=== PATIENT | female | born 1945 | race Caucasian/White ===

== ENCOUNTER → 2023-11-07 14:07 | Outpatient (REF) | payer MEDICARE, BC, SELFPAY | LOC: HWRAD 14:07 | PROVIDERS: ATTENDING PHYSICIAN Internal Medicine Rheumatology; FAMILY PHYSICIAN Internal Medicine | DX: M81.0 Age-related osteoporosis without current pathological fracture (principal) | CPT/HCPCS: 77080 ==

== ENCOUNTER → 2023-11-14 11:05 | Outpatient (REF) | payer MEDICARE, BC, SELFPAY ==
[2023-11-14 11:51] LABS: % Basophils 0.9 % (0-2); % Eosinophils 1.8 % (0-6); % Immature Granulocytes 0.2 % (0-0.5); % Lymphocytes 21.2 % (20.5-51.1); % Monocytes 6.1 % (1.7-9.3); % Neutrophils 69.8 % (42.2-75.2); Absolute Basophils 0.1 10^3/uL (0-0.2); Absolute Eosinophils 0.2 10^3/uL (0-0.7); Absolute Lymphocytes 1.7 10^3/uL (1.2-3.4); Absolute Monocytes 0.5 10^3/uL (0.1-0.6); Absolute Neutrophils 5.7 10^3/uL (1.4-6.5); Hemoglobin 12.5 g/dL (12.0-16.0); Mean Corp Hgb Conc. 34.7 g/dL (33.0-37.0); Mean Corpuscular Hgb 34.2 pg (27.0-31.0); Mean Corpuscular Volume 98.4 fL (81.0-99.0); Mean Platelet Volume 9.6 fL (7.4-10.4); Nucleated Red Blood Cells % 0 %; Platelet Count 299 10^3/uL (130-400); Red Blood Cell Count 3.66 10^6/uL (4.20-5.40); White Blood Cell Count 8.2 10^3/uL (4.8-10.8)
[2023-11-14 12:18] LABS: ALT (SGPT) 13 U/L (0-35); AST (SGOT) 25 U/L (14-36); Albumin 4.6 g/dl (3.5-5.0); Alkaline Phosphatase 88 U/L (38-126); Blood Urea Nitrogen 23 mg/dl (7-17); Calcium 10.6 mg/dl (8.4-10.2); Carbon Dioxide 27 mmol/L (22-30); Chloride 104 mmol/L (98-107); Glucose 122 mg/dl (70-99); Potassium 5.3 mmol/L (3.5-5.1); Sodium 137 mmol/L (135-145); Total Bilirubin 0.5 mg/dl (0.2-1.3); Total Protein 7.2 g/dl (6.3-8.2); eGFR 46.62
== END ==
LOC: REG 11:05
PROVIDERS: ATTENDING PHYSICIAN Internal Medicine Rheumatology; FAMILY PHYSICIAN Internal Medicine
DX: M05.9 Rheumatoid arthritis with rheumatoid factor, unspecified (principal); Z51.81 Encounter for therapeutic drug level monitoring
CPT/HCPCS: 36415; 80053; 85025; 86140

== ENCOUNTER → 2023-12-18 11:38 | Outpatient (REF) | payer MEDICARE, BC, SELFPAY | LOC: REG 11:38 | PROVIDERS: ATTENDING PHYSICIAN Internal Medicine | DX: E11.65 Type 2 diabetes mellitus with hyperglycemia (principal) | CPT/HCPCS: 36415; 83036 ==

== ENCOUNTER → 2024-03-06 12:32 | Outpatient (REF) | payer MEDICARE, BC, SELFPAY ==
[2024-03-06 13:16] LABS: Urine Albumin Trace (Neg - Trace); Urine Bilirubin Negative (Negative); Urine Character Clear (Clear); Urine Color Yellow; Urine Glucose 3+ (Negative); Urine Ketone Negative (Negative); Urine Leukocyte 1+ (Negative); Urine Nitrite Negative (Negative); Urine Occult Blood Negative (Negative); Urine Urobilinogen Negative (Neg - 1+)
[2024-03-06 13:42] LABS: Urine Bacteria Few (Negative); Urine Red Blood Cell 0-2 /HPF (0-2); Urine Squamous Cell 0-2 /LPF (Few); Urine White Cell 50-60 /HPF (0-5)
== END ==
LOC: REG 12:32
PROVIDERS: ATTENDING PHYSICIAN Internal Medicine
DX: R30.0 Dysuria (principal)
CPT/HCPCS: 81003; 81015; 87077; 87086; 87186

== ENCOUNTER → 2024-03-19 10:53 | Outpatient (REF) | payer MEDICARE, BC, SELFPAY ==
[2024-03-19 11:30] LABS: % Basophils 0.5 % (0-2); % Eosinophils 1.9 % (0-6); % Immature Granulocytes 0.4 % (0-0.5); % Lymphocytes 18.4 % (20.5-51.1); % Monocytes 5.2 % (1.7-9.3); % Neutrophils 73.6 % (42.2-75.2); Absolute Eosinophils 0.2 10^3/uL (0-0.7); Absolute Lymphocytes 1.5 10^3/uL (1.2-3.4); Absolute Monocytes 0.4 10^3/uL (0.1-0.6); Absolute Neutrophils 6.1 10^3/uL (1.4-6.5); Hematocrit 33.6 % (37.0-47.0); Hemoglobin 11.5 g/dL (12.0-16.0); Mean Corp Hgb Conc. 34.2 g/dL (33.0-37.0); Mean Corpuscular Hgb 33.5 pg (27.0-31.0); Mean Platelet Volume 9.3 fL (7.4-10.4); Nucleated Red Blood Cells % 0 %; Platelet Count 304 10^3/uL (130-400); Red Blood Cell Count 3.43 10^6/uL (4.20-5.40); Red Cell Dist. Width 12.7 % (11.5-14.5); White Blood Cell Count 8.3 10^3/uL (4.8-10.8)
[2024-03-19 12:32] LABS: ALT (SGPT) 13 U/L (0-35); AST (SGOT) 25 U/L (14-36); Albumin 4.4 g/dl (3.5-5.0); Alkaline Phosphatase 88 U/L (38-126); Blood Urea Nitrogen 17 mg/dl (7-17); Calcium 10.7 mg/dl (8.4-10.2); Carbon Dioxide 24 mmol/L (22-30); Chloride 103 mmol/L (98-107); Glucose 164 mg/dl (70-99); Potassium 4.9 mmol/L (3.5-5.1); Sodium 138 mmol/L (135-145); Total Bilirubin 0.4 mg/dl (0.2-1.3); eGFR > 60.00
[2024-03-19 12:48] LABS: C-Reactive Protein < 5.00 mg/L (0.0-10.00)
[2024-03-19 12:57] LABS: Vitamin D, 25-OH*** 46.3 ng/mL (30-80)
[2024-03-20 14:42] LABS: Intact PTH 65.2 pg/ml (13.6-85.8)
== END ==
LOC: REG 10:53
PROVIDERS: ATTENDING PHYSICIAN Internal Medicine Rheumatology; FAMILY PHYSICIAN Internal Medicine; REFERRING PHYSICIAN Nurse Practitioner Primary Care
DX: E83.52 Hypercalcemia (principal); M05.9 Rheumatoid arthritis with rheumatoid factor, unspecified; M81.0 Age-related osteoporosis without current pathological fracture; Z51.81 Encounter for therapeutic drug level monitoring; C34.12 Malignant neoplasm of upper lobe, left bronchus or lung
CPT/HCPCS: 36415; 80053; 82306; 83970; 85025; 86140

== ENCOUNTER → 2024-03-25 09:31 | Outpatient (REF) | payer MEDICARE, BC, SELFPAY | LOC: WDC 09:31 | PROVIDERS: ATTENDING PHYSICIAN Nurse Practitioner Family; FAMILY PHYSICIAN Internal Medicine | DX: N64.4 Mastodynia (principal); R59.0 Localized enlarged lymph nodes; C34.12 Malignant neoplasm of upper lobe, left bronchus or lung | CPT/HCPCS: 76642; 77062; 77066 ==

== ENCOUNTER → 2024-04-07 09:39 | Outpatient (REF) | payer MEDICARE, BC, SELFPAY | LOC: RAD 09:39 | PROVIDERS: ATTENDING PHYSICIAN Nurse Practitioner Primary Care; FAMILY PHYSICIAN Internal Medicine | DX: C34.12 Malignant neoplasm of upper lobe, left bronchus or lung (principal) | CPT/HCPCS: 71260; 74177; Q9967 ==

== ENCOUNTER → 2024-04-09 10:33 | Outpatient (REF) | payer MEDICARE, BC, SELFPAY ==
[2024-04-09 12:29] LABS: Glycohemoglobin (HgbA1c) 7.1 % (4.0-5.6)
[2024-04-09 13:33] LABS: Microalbumin, Random Urine 2.6 mg/dl (0.6-1.7); Microalbumin/creatinine Ratio 34.7 mg/g
== END ==
LOC: REG 10:33
PROVIDERS: ATTENDING PHYSICIAN Internal Medicine
DX: E11.65 Type 2 diabetes mellitus with hyperglycemia (principal)
CPT/HCPCS: 36415; 82043; 82570; 83036

== ENCOUNTER → 2024-04-14 13:00 | Outpatient (REF) | payer MEDICARE, BC, SELFPAY | LOC: REG 13:00 | PROVIDERS: ATTENDING PHYSICIAN Internal Medicine Rheumatology; FAMILY PHYSICIAN Internal Medicine | DX: M05.9 Rheumatoid arthritis with rheumatoid factor, unspecified (principal); M81.0 Age-related osteoporosis without current pathological fracture | CPT/HCPCS: 36415; 83519 ==

== ENCOUNTER 2024-04-24 10:45 | Emergency (ER) | payer MEDICARE, BC, SELFPAY ==
[2024-04-24 10:53] VITALS: BP 122/78
[2024-04-24 11:14] VITALS: BMI 22.5
[2024-04-24 12:00] VITALS: BP 122/75
--- NOTE | 2024-04-24 13:00 | ED.GENMED ---
History of Present Illness
General
Chief Complaint: Musculo-Skeletal Complaint
Source: patient
Exam Limitations: none
Time Seen by Provider: 04/24/24 11:08
Nursing documentation reviewed up to this point in time: agreed with
History of Present Illness
History of Present Illness:
79-year-old female with past medical history of diabetes hypertension hyperlipidemia previous lung cancer who is currently receiving monthly shots to her arms bilaterally has had ongoing discomfort to her left arm after shot to months ago.
Described as achiness with some radiation to her armpit. Made worse when palpating and with some movements. Denies any chest pain shortness of breath nausea vomiting numbness weakness
Past History
Past History
ED Past Medical History: Cancer (Lung CA with only radiation), HTN, Hypercholesterolemia, NIDDM and Other (RA, Essential tremors, )
ED Past Surgical History: Appendectomy, , Gynecological (Right lumpectomy), Orthopedic (Carpal tunnel) and Tonsilectomy
Social History
Tobacco: Former smoker
Alcohol: Occasional
Drug: None
Personal:
Living: with family
Review of Systems
Review of Systems
Allergies reviewed?: Yes
All Other Systems: ROS reviewed and negative except as documented in HPI and ROS
Phy Exam
Physical Exam
Physical Exam:
GENERAL: Alert , in no apparent distress
EYE: pupils equal and reactive
NECK: Supple, no significant adenopathy.
ENT: o/p clr, mmm.
CARDIAC: Regular rate and rhythm .
LUNGS: Clear breath sounds bilaterally, no acute respiratory distress, no wheezes/rales/rhonchi
ABDOMEN: Soft, without focal tenderness, no r/g, no cvat
NEUROLOGICAL: Alert and oriented, no focal neuro deficits
SKIN: Warm and dry, skin intact.
MUSCULOSKELETAL: Very small amount of swelling to the left lateral upper arm no redness or warmth good range of motion strength of the elbow and shoulder. Otherwise no edema, well perfused.
PSYCH: Normal and appropriate interaction.
Course
Orders/Labs/Results
Orders:
Orders
04/24/24 11:53
EKG [Electrocardiogram (*1)] Urgent
Reason for Study: Chest Pain
EKG- Treatment ONCE
04/24/24 11:56
CR Humerus - Left Min 2 Views* Urgent
Comment:
Reason For Exam: armp ain swelling
Venous Doppler Upr Ext Left [US Periph Venous UPPER Ext LT] Urgent
Comment:
Reason For Exam: left arm swelling
04/24/24 13:11
Acetaminophen [Tylenol] 1,000 mg PO NOW STA
Vital Signs
Initial and Last Documented VS:
Initial Vital Signs
Temp Pulse Resp BP Pulse Ox
98.6 F 89 18 122/78 99
04/24/24 10:53 04/24/24 10:53 04/24/24 10:53 04/24/24 10:53 04/24/24 10:53
Last Documented Vital Signs
Temp Pulse Resp BP Pulse Ox
98.6 F 85 15 122/75 98
04/24/24 10:53 04/24/24 12:00 04/24/24 12:00 04/24/24 12:00 04/24/24 12:00
MDM/Problems Addressed
MDM/Problems Addressed:
79-year-old female presenting to the emergency department today with concerns of left upper arm discomfort over the past 2 months somewhat worse overnight last night. Denies any fevers chest pain shortness of breath or additional concerns. There
is some radiation to the armpit. Physical examination without redness warmth no signs of infection. Vital signs normal upon arrival. X-ray without acute abnormalities EKG normal ensuring no referred pain from the chest but description seems very
unlikely for this. Ultrasound without emergent findings x-ray without emergent findings. Patient potentially soft tissue injury advised for close orthopedic follow-up. Return precautions given.
*Critical Care Note
Total Time (30-74mins, 75-104mins- exclusive of procedures): Not Applicable
ED Attending Note
-
Portions of this chart may have been created with voice recognition software.� Occasional wrong word or��sound alike� substitutions may have occurred due to the inherent limitations of voice recognition software.
Discharge Plan
Departure
Patient Disposition: Home (Routine Discharge)
Date of Disposition: 04/24/24
Time of Disposition: 14:28
Patient with high blood pressure during this ER visit?: No
Condition: Good
Covid-19: Not Applicable
Discharge Problem:
Arm pain
Instructions: Muscle and Bone Pain (DC)
Prescriptions:
No Action
metformin 500 MG tablet
1,500 mg PO DAILY
Patient Comments:
3 tablets in AM
2 tablets in PM
lisinopril 10 MG tablet
10 mg PO DAILY
leucovorin calcium 5 MG tablet
10 mg PO HERNANDEZ
Patient Comments:
1 X weekly 12 hrs. after methotrexate PM
glipizide 5 MG tablet
2.5 mg PO DAILY
primidone 50 MG tablet
150 mg PO HS
Cimzia 200 MG/ML syringe kit
400 mg SQ MONTHLY
Anoro Ellipta 1 EACH blister with device
1 ea IH DAILY
metformin 500 mg Tablet
1,000 mg PO QPM
methotrexate sodium 2.5 mg Tablet
10 mg PO HERNANDEZ
simvastatin 20 mg Tablet
20 mg PO HS
metoprolol succinate 25 mg Tablet Extended Release 24 Hr
12.5 mg PO DAILY
alendronate [Fosamax] 70 mg Tablet
70 mg PO MO
solifenacin 10 mg Tablet
10 mg PO DAILY
cholecalciferol (vitamin D3) [Vitamin D3] 25 mcg (1,000 unit) Tablet
25 mcg PO DAILY
multivitamin Tablet
1 tab PO DAILY
ibuprofen 600 mg Tablet
600 mg PO Q8H PRN (Reason: pain)
[place] 3
1 cap PO DAILY
Referrals:
Michael Pino MD [Active] - Follow up in 5-7 days
Zach Wagner MD [Family Provider] -
Activity Restrictions/Additional Instructions:
You came to the emergency department today with concerns of arm discomfort. Please follow-up closely with orthopedics. Return to the emergency department for any worsening, new or concerning symptoms.
Interventions
Interventions:
*Risk Screen - Suicide Last Done: 04/24/24 10:54
*General Assessment Last Done: 04/24/24 10:54
*Neglect/Abuse Screening Last Done: 04/24/24 10:54
ED- Fall Risk Assessment Last Done: 04/24/24 11:14
ED-Musculoskeletal Assessment Last Done: 04/24/24 11:14
Discharge Date and Time
Print Language: CHILEAN
[2024-04-24] MEDS: TYLENOL 1000 MG PO (13:45)
[2024-04-24 14:00] VITALS: BP 125/77
== END 2024-04-24 14:37 | disposition home or self-care (01) ==
LOC: EMR 10:45
PROVIDERS: EMERGENCY PHYSICIAN Student in an Organized Health Care Education/Training Program; FAMILY PHYSICIAN Internal Medicine
DX: M79.602 Pain in left arm (principal); I10 Essential (primary) hypertension; E78.00 Pure hypercholesterolemia, unspecified; E11.9 Type 2 diabetes mellitus without complications; Z87.891 Personal history of nicotine dependence
CPT/HCPCS: 99285; 73060; 93005; 93971

== ENCOUNTER → 2024-05-02 12:01 | Outpatient (REF) | payer MEDICARE, BC, SELFPAY ==
[2024-05-02 13:53] LABS: % Basophils 0.6 % (0-2); % Eosinophils 1.9 % (0-6); % Immature Granulocytes 0.4 % (0-0.5); % Lymphocytes 16.7 % (20.5-51.1); % Monocytes 6.7 % (1.7-9.3); % Neutrophils 73.7 % (42.2-75.2); Absolute Basophils 0.1 10^3/uL (0-0.2); Absolute Eosinophils 0.2 10^3/uL (0-0.7); Absolute Lymphocytes 1.6 10^3/uL (1.2-3.4); Absolute Monocytes 0.6 10^3/uL (0.1-0.6); Hematocrit 34.5 % (37.0-47.0); Hemoglobin 11.7 g/dL (12.0-16.0); Mean Corp Hgb Conc. 33.9 g/dL (33.0-37.0); Mean Corpuscular Hgb 33.4 pg (27.0-31.0); Mean Corpuscular Volume 98.6 fL (81.0-99.0); Mean Platelet Volume 9.8 fL (7.4-10.4); Nucleated Red Blood Cells % 0 %; Platelet Count 294 10^3/uL (130-400); Red Cell Dist. Width 13.4 % (11.5-14.5); White Blood Cell Count 9.5 10^3/uL (4.8-10.8)
[2024-05-02 13:58] LABS: Erythrocyte Sed Rate 18 mm/hour (0-20)
[2024-05-02 14:14] LABS: ALT (SGPT) 17 U/L (0-35); AST (SGOT) 26 U/L (14-36); Albumin 4.7 g/dl (3.5-5.0); Alkaline Phosphatase 113 U/L (38-126); Blood Urea Nitrogen 28 mg/dl (7-17); Calcium 10.5 mg/dl (8.4-10.2); Carbon Dioxide 25 mmol/L (22-30); Chloride 103 mmol/L (98-107); Creatine Phosphokinase 52 U/L (30-135); Glucose 190 mg/dl (70-99); Potassium 5.4 mmol/L (3.5-5.1); Sodium 138 mmol/L (135-145); Total Bilirubin 0.2 mg/dl (0.2-1.3); Total Protein 7.1 g/dl (6.3-8.2); eGFR 38.51
== END ==
LOC: REG 12:01
PROVIDERS: ATTENDING PHYSICIAN Internal Medicine
DX: M06.9 Rheumatoid arthritis, unspecified (principal); M79.602 Pain in left arm
CPT/HCPCS: 36415; 80053; 82550; 85025; 85652; 86140

== ENCOUNTER → 2024-07-14 10:22 | Outpatient (REF) | payer MEDICARE, BC, SELFPAY ==
[2024-07-14 11:17] LABS: Glycohemoglobin (HgbA1c) 7.6 % (4.0-5.6)
[2024-07-14 12:24] LABS: Blood Urea Nitrogen 19 mg/dl (7-17); Calcium 10.6 mg/dl (8.4-10.2); Carbon Dioxide 25 mmol/L (22-30); Chloride 103 mmol/L (98-107); Glucose 214 mg/dl (70-99); Potassium 5.2 mmol/L (3.5-5.1); Sodium 140 mmol/L (135-145); eGFR 57.66
== END ==
LOC: REG 10:22
PROVIDERS: ATTENDING PHYSICIAN Internal Medicine
DX: E11.65 Type 2 diabetes mellitus with hyperglycemia (principal); N20.0 Calculus of kidney
CPT/HCPCS: 36415; 80048; 83036

== ENCOUNTER 2024-08-04 22:34 | Inpatient (IN) | payer MEDICARE, BC, SELFPAY ==
[2024-08-04] VITALS (13 sets, daily range): BP systolic 122–150; BP diastolic 72–127; BMI 23.9; BMI 22.6
--- NOTE | 2024-08-04 15:47 | ED.GENMED ---
ED Provider Triage
<Betsey Shaffer CLINICAL APPLICATIONS SPECIALIST - Last Filed: 08/04/24 15:52>
-
Attestation: A medical screening examination has been initiated by a qualified medical provider. Based on the assessment performed at this time, it has been determined that an emergent medical condition may exist and the patient has been informed
that further medical evaluation and possible additional diagnostic testing may be needed.
HPI: Sent here from Dr. Wagner's office for a fib. Was there for annual physical and got her Flu shot. [place] out of breath yesterday but not last night, then felt SOB with walking again today. Does not feel palpitations, denies CP.
GENERAL: Alert , in no apparent distress
EYE: No visual abnormalities.
CARDIAC: Hr 92-130 irregular.
ENT: No visible abnormalities.
LUNGS: No acute respiratory distress
NEUROLOGICAL: Alert and oriented
SKIN: Skin intact. No visible changes.
MUSCULOSKELETAL: Moving extremities normally
PSYCH: Normal and appropriate interaction.
This is a medical evaluation conducted in person to initiate diagnostic evaluation and provide initial therapeutics. Please see further documentation by the treating clinician.
History of Present Illness
<Betsey Shaffer CLINICAL APPLICATIONS SPECIALIST - Last Filed: 08/04/24 15:52>
General
Chief Complaint: Heart Rate Problem
Time Seen by Provider: 08/04/24 18:38
<GILLES Pacheco - Last Filed: 08/05/24 02:56>
General
Source: patient
Exam Limitations: none
History of Present Illness
History of Present Illness:
This is a 79 year old female that comes in with c/o atrial fib. States that she went to see the PCP today for her 3 month check on her A1C and to get her flu shot. States that yesterday she also got up in the morning and she felt dizzy and had some
SOB. States that [facility] knew she was seeing Dr. Wagner today so she said she would just tell him. Today in the office patient was found to be in atrial fib which she has never had before. States that she still fells a little SOB. States that she also
feels she has a UTI as she has some lower abd discomfort. Denies any fever, chills, chest pain, abd pain, nausea, vomiting, diarrhea, headache, urinary burning.
Past History
<Betsey Shaffer NP - Last Filed: 08/04/24 15:52>
Past History
ED Past Medical History: Cancer (Lung CA with only radiation), HTN, Hypercholesterolemia, NIDDM and Other (RA, Essential tremors, )
ED Past Surgical History: Appendectomy, , Gynecological (Right lumpectomy), Orthopedic (Carpal tunnel) and Tonsilectomy
Social History
Tobacco: Former smoker
Alcohol: Occasional
Drug: None
Personal:
Living: with family
<GILLES Pacheco - Last Filed: 08/05/24 02:56>
Past History
ED Past Medical History: NIDDM and Other (RA, Essential tremors, Numbness arms and legs, UTI, )
ED Past Surgical History: Appendectomy, , Tonsilectomy and Other (Bilateral cataracts, Polyps removed)
Social History
Tobacco: Former smoker
Alcohol: Occasional
Personal:
Living: with family
Review of Systems
<GILLES Pacheco - Last Filed: 08/05/24 02:56>
Review of Systems
All Other Systems: ROS reviewed and negative except as documented in HPI and ROS
Constitutional: Reports no symptoms; Denies fever or chills
EENT: Reports no symptoms
Respiratory: Reports trouble breathing; Denies cough
Cardiac: Denies chest pain
ABD/GI: Reports no symptoms; Denies abdominal pain, nausea, vomiting or diarrhea
: Reports other (Suprapubic pain); Denies dysuria, frequency or urgency
Musculoskeletal: Reports no symptoms
Skin: Reports no symptoms
Neurological: Reports dizzy (Yesterday); Denies headache
Psychiatric: Reports no symptoms
Phy Exam
<GILLES Pacheco - Last Filed: 08/05/24 02:56>
General Physical Exam
General Presentation: no apparent distress
General age: appears stated age
General Skin: warm and dry
General Habitus: elderly
General Mental: alert
General Hydration: dry mucous membranes
ENT Exam
ENT Exam: TM's normal, pharynx normal and neck supple
Eye Exam
Eye Exam: EOMI
Cardiovascular Exam
Cardiovascular Exam: no edema and irregularly irregular
Pulmonary Exam
Pulmonary Exam: lungs clear, no respiratory distress, no rales, chest non tender, no crackles, no rhonchi, no wheezing and no cough
Gastrointestinal Exam
Gastrointestinal Exam: normal bowel sounds, soft, no organomegaly, no pulsatile mass and tender (Suprapubic tenderness with palpation)
Musculoskeletal Exam
Musculoskeletal Exam: full ROM and no edema
Skin Exam
Skin Exam: normal color, warm/dry, no rash and no petechia
Psychiatric Exam
Psychiatric Exam: normal mood/affect
Scores
<GILLES Pacheco - Last Filed: 08/05/24 02:56>
[id number] Score for Afib Stroke Risk
Age in Years (65=0, 65-74=1, >/=75=2): > or = 75
Sex (Female=+1): Female
Congestive Heart Failure History (Yes=+1): No
Hypertension History (Yes=+1): Yes
Stroke/TIA/Thromboembolism History (Yes=+2): No
Vascular Disease History (Yes=+1): No
Diabetes Mellitus (Yes=+1): Yes
Score: 5
Anticoagulation Recommendations: Recommend anticoagulation (as validated in nonvalvular fib)
Course
<Betsey Shaffer, CLINICAL APPLICATIONS SPECIALIST - Last Filed: 08/04/24 15:52>
Orders/Labs/Results
Orders:
Orders
08/04/24 Dinner
1800 calorie (15 carb) Diabetic
At Your Request: Full Participation
Diabetic Diet: Cholesterol Lowering
08/04/24 15:43
ECG [Electrocardiogram (*1)] Urgent
Reason for Study: Atrial Fibrillation
EKG- Treatment ONCE
08/04/24 16:10
BNP [NT-proBNP] Urgent
CMP [Comprehensive Metabolic Panel] Urgent
Complete Blood Count/With Diff Urgent
Troponin I Urgent
08/04/24 19:05
Diltiazem 125 mg/125 ml Nss [Cardizem] 125 mg in 125 ml IV NOW
Initial dose in mg/hr, then titrate:: 5
Titrate to keep:: Heart rate 80-100 bpm
Titrate by mg/hr:: 5 mg/hr
Frequency of titrations (minutes):: 15
Maximum dose in mg/hr:: 15
Diltiazem HCl [Cardizem] 5 mg IV NOW STA
CR Chest - 2 Views Urgent
Comment:
Reason For Exam: Atrial fib
08/04/24 19:07
0.9% Sodium Chloride 1000 ml [Nss] 1,000 ml IV BOLUS
08/04/24 19:24
Apixaban [Eliquis] 5 mg PO NOW STA
08/04/24 20:17
Urinalysis Reflex To Culture Urgent
Date Specimen was Collected: 08/04/24
Time Specimen was Collected: 19:43
Urine Microscopic Reflex Cult Urgent
Urine Culture Urgent
HONEY Source: U
Specimen Description:
Date Specimen was Collected: 08/04/24
Time Specimen was Collected: 19:43
08/04/24 21:38
Insulin Aspart [NOVOLOG vial] 4 units Subcutaneous Insulin Syringe [Syringe-Insulin] 0 unit SC NOW
08/04/24 21:39
Admit/Transfer Patient As Directed
Co-Sign Provider:
Level of Care: Inpatient admission
Assign to:: IVU
Physician / Group: Asha Quiroz
Diagnosis: Atrial Fibrillation
Reason for Hospitalization: Atrial Fibrillation
Expected length of stay greater than two midnights?: Yes
ELOS- Estimated Length of Stay in days: 3
I certify the patient meets the requirements for IP care: Yes
08/04/24 21:40
PRN Pain Medication Management As Directed
May give lesser potent ordered pain med per pt: Yes
preference::
Protocol:: Medication orders for pain may be administered in a
manner that supports deferring to patient preference
when the pt is:
- Requesting an ordered lesser potent pain medication.
Least to most potent pain medications are defined
as: acetaminophen < NSAID < tramadol < opioids
(morphine, oxycodone, hydromorphone).
- Requesting a lesser dose of the same medication IF
ORDERED.
- Requesting a less intrusive route of administration
if both routes are prescribed by the provider (PO <
IV).
08/04/24 21:41
Code Status As Directed
Resuscitation Status: Full Code
08/04/24 23:00
Flush (0.9% Sodium Chloride) [Flush (Nss)] See Dose Instructions IV PER PROTOCOL
08/04/24 23:02
Dextrose 50%-Water [Dextrose 50% Syringe] 12.5 grams IV [id number] PRN
Diltiazem 125 mg/125 ml Nss [Cardizem] 125 mg in 125 ml IV PER PROTOCOL
Currently infusing. Continue current dose and titrate:: Yes
Titrate to keep:: Heart rate 80-100 bpm
Titrate by mg/hr:: 5 mg/hr
Frequency of titrations (minutes):: 15
Maximum dose in mg/hr:: 15
Glucagon [GlucaGen] 1 mg IM PRN PRN
Primidone [Mysoline] 150 mg PO HS
08/04/24 23:02
Echo 2D MMode Color/Doppler Routine
Reason for Study: chest pain
Activity As Directed
Activity Level: Out of Bed-Early Mobility
Bedside Glucose Monitoring As Directed
Frequency: AC&HS
Additional Instructions:: Change to q6h if pt on TPN, tube feeding or not eating
INT (Intravenous Needle Therapy) As Directed
Comment: maintain peripheral IV access
Intake/ Output As Directed
Frequency: Per unit guidelines
Vital Signs As Directed
Frequency: q4h
Weight As Directed
Frequency: Once
08/04/24 23:15
Atorvastatin [Lipitor] 10 mg PO HS
08/05/24 06:00
Basic Metabolic Panel IN AM
Cardiovascular Evaluation IN AM
Complete Blood Count/No Diff IN AM
Magnesium IN AM
08/05/24 07:30
Insulin Aspart Corrective Low [Novolog Flexpen-Low Resistance] See Protocol SC AC
08/05/24 08:00
GlipiZIDE [Glucotrol] 2.5 mg PO DAILY
Lisinopril [Zestril] 10 mg PO DAILY
METFORMIN HCl [Glucophage] 1,500 mg PO DAILY
Metoprolol Xl [Toprol Xl] 12.5 mg PO DAILY
Solifenacin Succinate [Vesicare] 10 mg PO DAILY
Tiotropium [place] 2.5 Mcg [Spiriva Respimat 2.5 Mcg] 2 puff INH R DAILY
08/05/24 18:00
METFORMIN HCl [Glucophage] 1,000 mg PO QPM
08/06/24 06:00
Basic Metabolic Panel IN AM
Complete Blood Count/No Diff IN AM
08/07/24 06:00
Basic Metabolic Panel IN AM
Complete Blood Count/No Diff IN AM
Abnormal Lab Results
08/04/24 08/04/24 08/04/24
16:10 20:17 22:28
WBC 11.1 H 10^3/uL
(4.8-10.8)
RBC 3.43 L 10^6/uL
(4.20-5.40)
Hgb 11.1 L g/dL
(12.0-16.0)
Hct 32.9 L %
(37.0-47.0)
MCH 32.4 H pg
(27.0-31.0)
Absolute Neuts (auto) 9.5 H 10^3/uL
(1.4-6.5)
Absolute Lymphs (auto) 1.0 L 10^3/uL
(1.2-3.4)
Neutrophils % 85.1 H %
(42.2-75.2)
Lymphocytes % 9.1 L %
(20.5-51.1)
Potassium 5.4 H mmol/L
(3.5-5.1)
Carbon Dioxide 19 L mmol/L
(22-30)
BUN 30 H mg/dl
(7-17)
Creatinine 1.3 H mg/dL
(0.6-1.0)
Glucose 383 H mg/dl
(70-99)
Calcium 10.8 H mg/dl
(8.4-10.2)
Leukocyte Esterase Rfl 1+ A
(Negative)
Urine WBC (Reflex) >100 A /HPF
(0-5)
Urine Bacteria (Reflex) Many A
(Negative)
Urine Glucose 3+ A
(Negative)
POC Glucose 229 H mg/dl
(70-99)
08/04/24 16:10
08/04/24 16:10
Vital Signs
Initial and Last Documented VS:
Initial Vital Signs
Temp Pulse Resp BP Pulse Ox
98.8 F 77 16 150/89 100
08/04/24 15:49 08/04/24 15:49 08/04/24 15:49 08/04/24 15:49 08/04/24 15:49
Last Documented Vital Signs
Temp Pulse Resp BP Pulse Ox
98.1 F 88 20 114/73 97
08/04/24 23:25 08/05/24 02:00 08/04/24 22:45 08/05/24 02:00 08/05/24 00:07
<GILLES Pacheco - Last Filed: 08/05/24 02:56>
Orders/Labs/Results
Orders:
Orders
08/04/24 Dinner
1800 calorie (15 carb) Diabetic
At Your Request: Full Participation
Diabetic Diet: Cholesterol Lowering
08/04/24 15:43
ECG [Electrocardiogram (*1)] Urgent
Reason for Study: Atrial Fibrillation
EKG- Treatment ONCE
08/04/24 16:10
BNP [NT-proBNP] Urgent
CMP [Comprehensive Metabolic Panel] Urgent
Complete Blood Count/With Diff Urgent
Troponin I Urgent
08/04/24 19:05
Diltiazem 125 mg/125 ml Nss [Cardizem] 125 mg in 125 ml IV NOW
Initial dose in mg/hr, then titrate:: 5
Titrate to keep:: Heart rate 80-100 bpm
Titrate by mg/hr:: 5 mg/hr
Frequency of titrations (minutes):: 15
Maximum dose in mg/hr:: 15
Diltiazem HCl [Cardizem] 5 mg IV NOW STA
CR Chest - 2 Views Urgent
Comment:
Reason For Exam: Atrial fib
08/04/24 19:07
0.9% Sodium Chloride 1000 ml [Nss] 1,000 ml IV BOLUS
08/04/24 19:24
Apixaban [Eliquis] 5 mg PO NOW STA
08/04/24 20:17
Urinalysis Reflex To Culture Urgent
Date Specimen was Collected: 08/04/24
Time Specimen was Collected: 19:43
Urine Microscopic Reflex Cult Urgent
Urine Culture Urgent
HONEY Source: U
Specimen Description:
Date Specimen was Collected: 08/04/24
Time Specimen was Collected: 19:43
08/04/24 21:38
Insulin Aspart [NOVOLOG vial] 4 units Subcutaneous Insulin Syringe [Syringe-Insulin] 0 unit SC NOW
08/04/24 21:39
Admit/Transfer Patient As Directed
Co-Sign Provider:
Level of Care: Inpatient admission
Assign to:: IVU
Physician / Group: Asha Quiroz
Diagnosis: Atrial Fibrillation
Reason for Hospitalization: Atrial Fibrillation
Expected length of stay greater than two midnights?: Yes
ELOS- Estimated Length of Stay in days: 3
I certify the patient meets the requirements for IP care: Yes
08/04/24 21:40
PRN Pain Medication Management As Directed
May give lesser potent ordered pain med per pt: Yes
preference::
Protocol:: Medication orders for pain may be administered in a
manner that supports deferring to patient preference
when the pt is:
- Requesting an ordered lesser potent pain medication.
Least to most potent pain medications are defined
as: acetaminophen < NSAID < tramadol < opioids
(morphine, oxycodone, hydromorphone).
- Requesting a lesser dose of the same medication IF
ORDERED.
- Requesting a less intrusive route of administration
if both routes are prescribed by the provider (PO <
IV).
08/04/24 21:41
Code Status As Directed
Resuscitation Status: Full Code
08/04/24 23:00
Flush (0.9% Sodium Chloride) [Flush (Nss)] See Dose Instructions IV PER PROTOCOL
08/04/24 23:02
Dextrose 50%-Water [Dextrose 50% Syringe] 12.5 grams IV [id number] PRN
Diltiazem 125 mg/125 ml Nss [Cardizem] 125 mg in 125 ml IV PER PROTOCOL
Currently infusing. Continue current dose and titrate:: Yes
Titrate to keep:: Heart rate 80-100 bpm
Titrate by mg/hr:: 5 mg/hr
Frequency of titrations (minutes):: 15
Maximum dose in mg/hr:: 15
Glucagon [GlucaGen] 1 mg IM PRN PRN
Primidone [Mysoline] 150 mg PO HS
08/04/24 23:02
Echo 2D MMode Color/Doppler Routine
Reason for Study: chest pain
Activity As Directed
Activity Level: Out of Bed-Early Mobility
Bedside Glucose Monitoring As Directed
Frequency: AC&HS
Additional Instructions:: Change to q6h if pt on TPN, tube feeding or not eating
INT (Intravenous Needle Therapy) As Directed
Comment: maintain peripheral IV access
Intake/ Output As Directed
Frequency: Per unit guidelines
Vital Signs As Directed
Frequency: q4h
Weight As Directed
Frequency: Once
08/04/24 23:15
Atorvastatin [Lipitor] 10 mg PO HS
08/05/24 06:00
Basic Metabolic Panel IN AM
Cardiovascular Evaluation IN AM
Complete Blood Count/No Diff IN AM
Magnesium IN AM
08/05/24 07:30
Insulin Aspart Corrective Low [Novolog Flexpen-Low Resistance] See Protocol SC AC
08/05/24 08:00
GlipiZIDE [Glucotrol] 2.5 mg PO DAILY
Lisinopril [Zestril] 10 mg PO DAILY
METFORMIN HCl [Glucophage] 1,500 mg PO DAILY
Metoprolol Xl [Toprol Xl] 12.5 mg PO DAILY
Solifenacin Succinate [Vesicare] 10 mg PO DAILY
Tiotropium [place] 2.5 Mcg [Spiriva Respimat 2.5 Mcg] 2 puff INH R DAILY
08/05/24 18:00
METFORMIN HCl [Glucophage] 1,000 mg PO QPM
08/06/24 06:00
Basic Metabolic Panel IN AM
Complete Blood Count/No Diff IN AM
08/07/24 06:00
Basic Metabolic Panel IN AM
Complete Blood Count/No Diff IN AM
Abnormal Lab Results
08/04/24 08/04/24 08/04/24
16:10 20:17 22:28
WBC 11.1 H 10^3/uL
(4.8-10.8)
RBC 3.43 L 10^6/uL
(4.20-5.40)
Hgb 11.1 L g/dL
(12.0-16.0)
Hct 32.9 L %
(37.0-47.0)
MCH 32.4 H pg
(27.0-31.0)
Absolute Neuts (auto) 9.5 H 10^3/uL
(1.4-6.5)
Absolute Lymphs (auto) 1.0 L 10^3/uL
(1.2-3.4)
Neutrophils % 85.1 H %
(42.2-75.2)
Lymphocytes % 9.1 L %
(20.5-51.1)
Potassium 5.4 H mmol/L
(3.5-5.1)
Carbon Dioxide 19 L mmol/L
(22-30)
BUN 30 H mg/dl
(7-17)
Creatinine 1.3 H mg/dL
(0.6-1.0)
Glucose 383 H mg/dl
(70-99)
Calcium 10.8 H mg/dl
(8.4-10.2)
Leukocyte Esterase Rfl 1+ A
(Negative)
Urine WBC (Reflex) >100 A /HPF
(0-5)
Urine Bacteria (Reflex) Many A
(Negative)
Urine Glucose 3+ A
(Negative)
POC Glucose 229 H mg/dl
(70-99)
08/04/24 16:10
08/04/24 16:10
WBC slightly elevated. H/H low. hyperkalemia, Carbon dioxide low. Dehydration. hyperglycemia, Calcium elevated. Troponin 0.033, Pro-BNP 8260, Urine positive for infection.
Vital Signs
Initial and Last Documented VS:
Initial Vital Signs
Temp Pulse Resp BP Pulse Ox
98.8 F 77 16 150/89 100
08/04/24 15:49 08/04/24 15:49 08/04/24 15:49 08/04/24 15:49 08/04/24 15:49
Last Documented Vital Signs
Temp Pulse Resp BP Pulse Ox
98.1 F 88 20 114/73 97
08/04/24 23:25 08/05/24 02:00 08/04/24 22:45 08/05/24 02:00 08/05/24 00:07
<GILLES Pacheco - Last Filed: 08/05/24 02:56>
MDM/Problems Addressed
Differential Diagnosis Includes:
New onset atrial fib, CHF
MDM/Problems Addressed:
This is a 79 year old female that comes in with c/o atrial fib. Patient was seen in the PCP office and found to be in atrial fib. States that she has never had this before.
Will get labs, Chest x-ray, Start Cardizem and admit.
Urine did not come back to later. Notified Hospitalist that she has a UTI.
Chronic conditions affecting care: Cancer
Acute Exacerbation and/or Progression of Chronic Illness:
NA
<GILLES Pacheco - Last Filed: 08/05/24 02:56>
*Radiology
Radiology exam reviewed: preliminary read by ED provider (Chest negative for active disease. ) and radiology read reviewed (Chest-No evidence of active cardiopulmonary disease. )
*Pulse Oximetry
Patient hypoxic: no
*EKG
Interpreted by ED Provider?: Yes
Heart Rate: 126
Rate: tachycardiac
Rhythm: a-fib
[place]: left axis deviation
QRS Pattern: normal QRS
Ischemia: non-specific ST changes (II, V3, V4, V5, V6)
*Laundry Assistant Interpretation
Rate: tachycardiac
Interpretation: abnormal
Heart Rate: 124
Rhythm: a-fib
*Critical Care Note
Total Time (30-74mins, 75-104mins- exclusive of procedures): Not Applicable
ED Attending Note
<Betsey Shaffer NP - Last Filed: 08/04/24 15:52>
-
Portions of this chart may have been created with voice recognition software.� Occasional wrong word or��sound alike� substitutions may have occurred due to the inherent limitations of voice recognition software.
Discharge Plan
Departure
Patient Disposition: Admit
Date of Disposition: 08/04/24
Time of Disposition: 20:07
Admit to: Telemetry
Presentation/result/management discussed w/ accepting MD/DO: Hospitalist
Patient with high blood pressure during this ER visit?: Yes
Condition: Good
Covid-19: Not Applicable
Discharge Problem:
New onset atrial fibrillation
Interventions
Interventions:
*Risk Screen - Suicide Last Done: 08/04/24 18:31
*General Assessment Last Done: 08/04/24 18:31
*Neglect/Abuse Screening Last Done: 08/04/24 18:31
ED- Fall Risk Assessment Last Done: 08/04/24 18:31
*ED COVID-19 Vaccine History Last Done: 08/04/24 18:31
*Nursing Disposition Last Done: 08/04/24 23:05
ED- Cardiac Assessment Last Done: 08/04/24 19:00
ED- Pulmonary Assessment Last Done: 08/04/24 19:00
Discharge Date and Time
Discharge Date/Time: 08/04/24 23:05
[2024-08-04 16:27] LABS: % Basophils 0.4 % (0-2); % Eosinophils 0.2 % (0-6); % Immature Granulocytes 0.4 % (0-0.5); % Lymphocytes 9.1 % (20.5-51.1); % Monocytes 4.8 % (1.7-9.3); % Neutrophils 85.1 % (42.2-75.2); Absolute Monocytes 0.5 10^3/uL (0.1-0.6); Absolute Neutrophils 9.5 10^3/uL (1.4-6.5); Hematocrit 32.9 % (37.0-47.0); Hemoglobin 11.1 g/dL (12.0-16.0); Mean Corp Hgb Conc. 33.7 g/dL (33.0-37.0); Mean Corpuscular Hgb 32.4 pg (27.0-31.0); Mean Corpuscular Volume 95.9 fL (81.0-99.0); Mean Platelet Volume 9.7 fL (7.4-10.4); Nucleated Red Blood Cells % 0 %; Platelet Count 249 10^3/uL (130-400); Red Blood Cell Count 3.43 10^6/uL (4.20-5.40); White Blood Cell Count 11.1 10^3/uL (4.8-10.8)
[2024-08-04 16:44] LABS: ALT (SGPT) 19 U/L (0-35); AST (SGOT) 22 U/L (14-36); Albumin 4.4 g/dl (3.5-5.0); Alkaline Phosphatase 101 U/L (38-126); Blood Urea Nitrogen 30 mg/dl (7-17); Calcium 10.8 mg/dl (8.4-10.2); Carbon Dioxide 19 mmol/L (22-30); Chloride 103 mmol/L (98-107); Glucose 383 mg/dl (70-99); Potassium 5.4 mmol/L (3.5-5.1); Sodium 141 mmol/L (135-145); Total Bilirubin 0.4 mg/dl (0.2-1.3); eGFR 42.09
[2024-08-04 16:52] LABS: NT-proBNP 8260 pg/ml; Troponin I 0.033 ng/ml
[2024-08-04] MEDS: ELIQUIS 5 MG PO (20:10)
[2024-08-04] MEDS: CARDIZEM 125 IV (20:11)
[2024-08-04] MEDS: CARDIZEM 5 MG IV (20:11)
[2024-08-04] MEDS: NSS 1000 IV (20:11)
--- NOTE | 2024-08-04 20:36 | HPS.HSE ---
Family Physician
-
Family Physician:
Chief Complaint
-
Atrial Fibrillation
History of Present Illness
Patient is a 79-year-old female with past medical history significant for hypertension, hyperlipidemia, type II diabetes, diverticular disease, and Rheumatoid Arthritis who presented to [facility] ED for evaluation following recommendation from
primary care, Dr. Wagner's. Patient reports she was in primary office for 3 month A1C follow up and when assessed by physician he ordered an EKG that was completed and showed atrial fibrillation and she was referred to ED for evaluation. Patient
stated yesterday she felt slightly dizzy and short of breath and thought nothing of it expect that if continued she would see her doctor for scheduled appointment in the morning. Patient deneis any fever, chills, chest pain, palpitations cough,
nausea, vomiting, constipation, diarrhea or urinary symptoms.
Medical History
Past Medical History
Past Medical History: Reports Other
Additional Past Medical History:
Hypertension
Hyperlipidemia
Type II Diabetes
Diverticular Disease
Rheumatoid Arthritis
Past Surgical History: Reports Other
Additional Past Surgical History:
Breast Cancer with Lumpectomy
x2
Appendectomy
Social History
Tobacco: Former Smoker (quit 20 years ago)
Alcohol: Occasional (with special celebrations)
Drug: None
Personal:
Living: With Family
Employment: Retired
Family History
Family History: Unable to Obtain (patient reports she is adopted )
Allergies / Home Medications
Allergies reflects when Allergies were last updated in [facility].
Home Medications with original date entered in [facility]
Allergy/Medication List:
Allergies
Allergy/AdvReac Type Severity Reaction Status Date / Time
infliximab [From Remicade] Allergy Unknown Verified 04/24/24 10:53
Home Medications
lisinopril 10 mg tablet 10 mg PO DAILY 09/03/20
metformin 500 mg tablet 1,500 mg PO DAILY 09/03/20
glipizide 5 mg tablet 2.5 mg PO DAILY 09/06/20
primidone 50 mg tablet 150 mg PO HS 09/06/20
alendronate 70 mg tablet (Fosamax) 70 mg PO MO 10/16/22
cholecalciferol (vitamin D3) 25 mcg (1,000 unit) tablet (Vitamin D3) 25 mcg PO DAILY 10/16/22
metformin 500 mg tablet 1,000 mg PO QPM 10/16/22
methotrexate sodium 2.5 mg tablet 10 mg PO HERNANDEZ 10/16/22
metoprolol succinate 25 mg tablet,extended release 24 hr 12.5 mg PO DAILY 10/16/22
simvastatin 20 mg tablet 20 mg PO HS 10/16/22
solifenacin 10 mg tablet 10 mg PO DAILY 10/16/22
docusate sodium 100 mg capsule (Colace) 100 mg PO DAILYPRN PRN constipation 08/04/24
leucovorin calcium 10 mg tablet 10 mg PO HERNANDEZ 08/04/24
naproxen sodium 220 mg tablet (Aleve) 440 mg PO BIDPRN PRN mild pain 08/04/24
polyethylene glycol 3350 17 gram oral powder packet (Miralax) 17 g PO DAILYPRN PRN constipation 08/04/24
therapeutic multivitamin 2 tab PO DAILY 08/04/24
umeclidinium 62.5 mcg-vilanterol 25 mcg/actuation powdr for inhalation (Anoro Ellipta) 1 inh inhalation R DAILY 08/04/24
Review of Systems
-
History Source: Patient
Constitutional: Reports No Symptoms
EENT: Reports No Symptoms
Respiratory: Reports Other (mild shortness of breath)
Cardiac: Reports Palpitations and Other (dizzy type feeling)
Abdomen/GI: Reports No Symptoms
: Reports No Symptoms
Musculoskeletal: Reports No Symptoms
Skin: Reports No Symptoms
Neurological: Reports No Symptoms
Endocrine: Reports No Symptoms
Hematologic/Lymphatic: Reports No Symptoms
Psych: Reports No Symptoms
Physical Exam
Vital Signs
Vital Signs
Temp Pulse Resp BP Pulse Ox
98.8 F 109 8 136/84 99
08/04/24 15:49 08/04/24 20:11 08/04/24 18:30 08/04/24 20:11 08/04/24 18:30
Physical Exam
General: Well Developed, Well Nourished, No Apparent Distress, Comfortable and Conversant
HEENT: NormoCephalic, Moist mucous membranes, Atraumatic, PERRLA, [place] Conjunctivae, Nose Appears Normal and Ears Appear Normal
Respiratory: Clear and Non Labored Respirations; No Wheezes, Rales, Rhonchi or Crackles
Cardiac: S1/S2 and Irregular Rhythm; No Murmur, Rub or Gallop
Breast: Deferred by me
GI: Soft, Non Tender, Non Distended and Normal Bowel Sounds; No Organomegaly
Rectal: Deferred by Provider
Genito-urinary: Deferred by me
Musculoskeletal: No Clubbing, No Cyanosis, No Edema and Normal Gait & Station
Skin: Warm, Dry and IV/Catheter Site; No Rash
Neuro: Awake, Alert, AO x 3, Nonfocal/grossly intact and Cranial Nerves Intact
Hematologic/Lymphatic: No Lymphadenopathy
Psych: Calm and Intact Judgment/Insight
Laboratory Results
-
08/04/24 16:10
08/04/24 16:10
Laboratory Results
Total Bilirubin 0.4 mg/dl (0.2-1.3) 08/04/24 16:10
AST 22 U/L (14-36) 08/04/24 16:10
ALT 19 U/L (0-35) 08/04/24 16:10
Alkaline Phosphatase 101 U/L (38-126) 08/04/24 16:10
Troponin I 0.033 ng/ml 08/04/24 16:10
Data Reviewed
-
Medical Tests (Nuc Med, Echo, EKG etc): Report Reviewed by me (EKG: ATRIAL FIBRILLATION WITH RAPID VENTRICULAR RESPONSE LEFT AXIS DEVIATION)
Lab Data: Labs Reviewed by me (BUN 30, Creat 1.3, )
Impression/Plan
-
IMPRESSION/PLAN:
#Atrial fibrillation
- EKG: ATRIAL FIBRILLATION WITH RAPID VENTRICULAR RESPONSE, LEFT AXIS DEVIATION
- Admit to IVU
- Cardizem gtt
- Eliquis
- Consult Cardiology
- Echo tomorrow
- lipid panel, TSH, A1C
#UTI?
#Overactive bladder
- UA positive?
- follow for culture
- continue solifenacin
#Hypertension
- continue lisinopril, metoprolol
#Hyperlipidemia
- continue simvastatin
#Type II Diabetes
- continue glipizide, metformin
- Accuchecks AC & HS with SSI
- A1C
#Diverticular Disease
- follows with GI outpatient
#Rheumatoid Arthritis
- continue methotrexate
Full Code
DVT Px: Eliquis
[2024-08-04 20:47] LABS: Urine Albumin Trace (Neg - Trace); Urine Bilirubin Negative (Negative); Urine Character Slightly Cloudy (Clear); Urine Color Yellow; Urine Glucose 3+ (Negative); Urine Ketone Negative (Negative); Urine Leukocyte 1+ (Negative); Urine Nitrite Negative (Negative); Urine Occult Blood Negative (Negative); Urine Urobilinogen Negative (Neg - 1+)
[2024-08-04 21:06] LABS: Urine Red Blood Cell 0-2 /HPF (0-2); Urine White Cell >100 /HPF (0-5)
[2024-08-04 21:07] LABS: Urine Bacteria Many (Negative)
--- NOTE | 2024-08-04 21:27 | W.PN.UPDATE ---
Update Note
Progress Note Update
Patient seen in conjunction with APPLICATION SUPPORT ADMINISTRATOR. I agree with the findings on history and physical. I concur with the assessment and plan listed otherwise.
Briefly this is a 79-year-old female with past medical history of rheumatoid arthritis, lnw-zzolzru-krdgcggzm diabetes, COPD, overactive bladder, hyperlipidemia essential tremor and mild COPD who presents to the emergency department for evaluation
of A-fib RVR. Patient was initially found incidentally on routine follow-up visit with PMD. She reported feeling somewhat short of breath and lightheaded 1 day ago. She also reported some pelvic discomfort but denies dysuria or hematuria. Denies
having fevers or chills. She denies any chest pain. She denies any palpitations. Patient denies any recent medication changes. She denied any heat or cold intolerance. She was being examined by PMD who noted irregular rapid heart rate and EKG
demonstrated atrial fibrillation with rapid ventricular response. She was then sent to the emergency department.
In the ED she was afebrile blood pressure was stable at 136/90 and she was initially in the 130s. She was at 99% on room air. ECG confirmed atrial fibrillation RVR rate of 126. Trop 0.015. BNP 8000. There was white count of 11.1, hemoglobin was
stable at 11.1 with normal platelet count. Chemistry shows a K of 5.4, BUN slightly elevated at 39 creatinine of 1.3 with a blood glucose of 383. UA shows negative nitrites, WBCs, bacteria is pending.
A&P
Patient with new onset atrial fibrillation without any specific inciting factors. She is well-appearing nontoxic and hemodynamically stable. She has no overt heart failure.
Admit to heavy use, currently on diltiazem drip at a rate of 5 with rates in the 110s systolic and patient asymptomatic. Starting Eliquis
Continue metoprolol succinate 12.5 dialy for now
Checking TSH, echo, cardiology consult
She is relatively hyperglycemic. UA with 3+ glucose but no ketones. There is a slight decrease in bicarb but no significant gap. Given 1L NS IV fluids and 5 units of insulin. Start insulin sliding scale. Continue metformin for now. Check A1c
in a.m.
U/A + with minimal symptoms and no systemic findings. Send cultures. Will start on cephalexin bid
Rest of plan as per APPLICATION SUPPORT ADMINISTRATOR note
[2024-08-04 22:30] LABS: Glucose - Point of Care 229 mg/dl (70-99)
[2024-08-04] MEDS: NOVOLOG vial 0.04 UNITS SC (22:43)
[2024-08-04] MEDS: MYSOLINE 150 MG PO (23:45)
[2024-08-04] MEDS: LIPITOR 10 MG PO (23:45)
--- NOTE | 2024-08-04 23:51 | PTCARENOTE ---
Pt. transferred from ED. Pt. AOx3. Pt. tele reading Afib 90s-100s. BP stable, 122/81. No complaints of pain at this time. Cardizem drdavid arriving with patient from ED running at 10mg/hr. Plan of care explained by RN to patient, pt. verbalizes
understanding. Call barbosa within reach. Continuing to monitor at this time.
[2024-08-05] VITALS (13 sets, daily range): BP systolic 88–144; BP diastolic 55–127
[2024-08-05] MEDS: TYLENOL 650 MG PO ×2 (03:30→19:29)
[2024-08-05 03:57] LABS: Hematocrit 31.1 % (37.0-47.0); Hemoglobin 10.7 g/dL (12.0-16.0); Mean Corp Hgb Conc. 34.4 g/dL (33.0-37.0); Mean Corpuscular Hgb 33.1 pg (27.0-31.0); Mean Corpuscular Volume 96.3 fL (81.0-99.0); Mean Platelet Volume 9.6 fL (7.4-10.4); Platelet Count 237 10^3/uL (130-400); Red Blood Cell Count 3.23 10^6/uL (4.20-5.40); Red Cell Dist. Width 14.1 % (11.5-14.5); White Blood Cell Count 11.6 10^3/uL (4.8-10.8)
[2024-08-05 04:09] LABS: Blood Urea Nitrogen 25 mg/dl (7-17); Calcium 10.2 mg/dl (8.4-10.2); Carbon Dioxide 20 mmol/L (22-30); Chloride 107 mmol/L (98-107); Estimated Creatinine Clearance 38 ml/min; Glucose 270 mg/dl (70-99); HDL Cholesterol 52 mg/dl; LDL Cholesterol, Calculated 59 mg/dl; Magnesium 1.3 mg/dl (1.6-2.3); Potassium 5.4 mmol/L (3.5-5.1); Sodium 141 mmol/L (135-145); Total Cholesterol 136 mg/dl (50-199); Triglyceride 127 mg/dl (10-149); Very Low Density Lipoprotein 25 mg/dl (0-30); eGFR 57.66
[2024-08-05] MEDS: MAGNESIUM SULFATE 50 IV ×2 (05:01→10:40)
[2024-08-05 07:11] LABS: Glucose - Point of Care 252 mg/dl (70-99)
[2024-08-05] MEDS: STRIVERDI RESPIMAT 2 PUFF INH (07:22)
[2024-08-05] MEDS: SPIRIVA RESPIMAT 2.5 MCG 2 PUFF INH (07:22)
[2024-08-05] MEDS: NOVOLOG FLEXPEN-LOW RESISTANCE 3 UNITS SC (07:53)
--- NOTE | 2024-08-05 08:31 | W.PN.HOSP.TC ---
Today's Communication/Plan
-
see A/P
Assessment / Plan
Assessment / Plan
HPI: 79-year-old female with past medical history significant for hypertension, hyperlipidemia, type II diabetes, diverticular disease, and Rheumatoid Arthritis; who presented to [place] ED for evaluation following recommendation from primary
care, Dr. Wagner's. Patient reports she was in primary office for her 3 month's A1C follow up and when assessed by physician, he ordered an EKG which showed atrial fibrillation.
She was referred to ED for the new onset atrial fibrillation.
Patient stated she felt slightly dizzy and short of breath.
A/P:
# New onset Atrial fibrillation
Pt was started with Cardizem gtt for rate control
s/p Eliquis x1 dose in ED
Check echo
Consult Cardiology
Check TSH reflex FT4
# Mildly elevated troponin likely non-ischemic myocardial injury
trend trop
# UTI with urinary frequency/suprapubic pain
follow urine culture
start empiric ceftriaxone
# Hypertension
continue ED MANAGER metoprolol with holding parameter
# Hyperkalemia
K level 5.4, noted K level high for several months
hold ED MANAGER lisinopril
# Hyperlipidemia
continue simvastatin
# Type II Diabetes
Hold ED MANAGER glipizide, metformin during hospital stay
cover with ISS
follow A1C
# Diverticular Disease
follows with GI outpatient
# Rheumatoid Arthritis
continue methotrexate
# Hypomagnesemia
replete IV
Full Code
DVT Px: Lovenox SQ while awaiting definitive OAC
DW RN
updated on the phone
total time spent 51 min
Anticipated Discharge: > 48 hours
Subjective/Interval History
-
Date of Service: August 05, 2024
Objective Data
-
Labs:
Laboratory Results
08/05/24
03:36
WBC 11.6 H
Hgb 10.7 L
Hct 31.1 L
Plt Count 237
Sodium 141
Potassium 5.4 H
Chloride 107
Carbon Dioxide 20 L
BUN 25 H
Creatinine 1.0
Glucose 270 H
Calcium 10.2
Vital Signs:
Vital Signs
Temp Pulse Resp BP Pulse Ox
36.9 C 67 18 114/73 96
08/05/24 07:04 08/05/24 07:30 08/05/24 07:30 08/05/24 03:52 08/05/24 07:30
I&O
08/04/24 08/05/24 08/06/24
06:59 06:59 06:59
Intake Total 100 / 100
Balance 100 / 100
Review of Systems
-
Cardiac: Reports Palpitations
Genitourinary: Reports Frequency
Physical Exam
-
General: Well Developed, Well Nourished, No Apparent Distress, Comfortable and Conversant; Negative Respiratory Distress
HEENT: Normocephalic, Atraumatic, Nose Appears Normal and Ears Appear Normal; Negative Oxygen
Respiratory: Clear to Auscultation and Non Labored Respirations; Negative Accessory Resp Muscle Use
Cardiac: Regular Rhythm and S1/S2
GI: Soft, Nontender, Nondistended and Normal Bowel Sounds
Skin: Warm and Dry
Neuro: Awake and Alert
Psych: Calm and Intact Judgement/Insight
Data Reviewed
-
Labs: Labs Reviewed by me
--- NOTE | 2024-08-05 09:41 | PTCARENOTE ---
Assumed care of pt from prev nsg shift; Pt AAOx3 w/no c/o CP or SOB. Pt mildy forgetful but rings appropriately for assistance. Pt's VS stable w/HR in the 90's at rest & 110's-120's w/activity & BP this AM 107/55. Pt is Afib on telemetry monitoring.
Pt w/IV Cardizem infusing through patent IV line as ordered. Plan of care discussed w/pt & pt w/no addtl needs at this time.
--- NOTE | 2024-08-05 09:56 | CON.CAR ---
Addendum entered and electronically signed by Too Martinez MD 08/05/24 14:23:
I interviewed and examined the patient with resident MD Dr Rene present. I agree with the H/P below with changes/additions per this addendum.
79 yo female with PMH paroxysmal SVT, mild , mild/moderate MR, HTN, DM is admitted with UTI and new A fib with RVR. Patient reports approx 1 week of urinary sxs, then some dizziness/SOB on Sunday. Exam with irregular rhythm, II/ systolic
murmur at RUSB, trace LE edema. Cr 1.0.
She is being treated for UTI, with abnormal UA, and elevated WBC. We will focus on rate control of her A fib for now. Continue diltiazem drip, with close monitoring of tele. Continue home Toprol XL 12.5mg daily.
CHADS2-VASC = 5. Start eliquis 5mg bid for OAC.
Original Note:
Consultation
Consultation Request
Date/Time Consultation Requested: 08/05/24
Date/Time Consultation Performed: 08/05/24
Requesting Provider: Dr Michelle Gage
Performing Provider: Dr Hilario Chandler
Reason for Consultation: Atrial fibrillation
Medical History
-
Chief Complaint: irregular heart rate
History of Present Illness:
79-year-old female with past medical history of PSVT, mild and AR, mild to moderate MR, hypertension, hyperlipidemia, type 2 diabetes, diverticular disease, rheumatoid arthritis, stage I lung cancer treated with radiation presented to the ED for
evaluation recommendation from primary care Dr. Wagner's. Patient states that on Sunday morning that was completed and showed atrial fibrillation, 08/03/2024, patient felt dizzy, short of breath. She saw her primary care physician on 08/04/2024
for a 3-month follow-up on A1c. On assessment the physician ordered an EKG which showed atrial fibrillation and therefore she was referred to the ED for evaluation. She denies chest pain, palpitations, cough, nausea, vomiting. Patient reports of
having suprapubic pain, urinary incontinence, increased urgency and frequency, ongoing for the past 1 week. She denies burning, pain with urination.
Patient denies history of heart failure, stroke, DVT, PE. Patient sees Dr. Roslyn Wu, outpatient cardiology, last visit was on 07/25/24.
Previous echocardiogram on 07/09/23 showed left ventricular ejection fraction 60 to 65%, mild/moderate eccentric MR, mild with peak/mean gradient across the aortic valve are 19/10, aortic valve area is equal to 1.9.
Past Medical History
Past Medical History: Arrhythmias (PSVT), Cancer (Stage I lung cancer, breast cancer), HTN, Hypercholesterolemia, NIDDM and Other (Rheumatoid arthritis)
Social History
Tobacco: Former Smoker (Quit 15 years ago due to RA)
Alcohol: Occasional (2-3 times a week, 1 or 2 drinks)
Drug: None
Personal:
Living: With Family
Employment: Retired
Family History
Family History: Reviewed & Not Pertinent
Allergies / Home Medications
Allergy/AdvReac Type Severity Reaction Status Date / Time
infliximab [From Remicade] Allergy Unknown Verified 04/24/24 10:53
�Medication �Instructions �Recorded �Confirmed �Type
lisinopril 10 mg tablet 10 mg PO DAILY 09/03/20 08/04/24 History
metformin 500 mg tablet 1,500 mg PO DAILY 09/03/20 08/04/24 History
glipizide 5 mg tablet 2.5 mg PO DAILY 09/06/20 08/04/24 History
primidone 50 mg tablet 150 mg PO HS 09/06/20 08/04/24 History
alendronate 70 mg tablet (Fosamax) 70 mg PO MO 10/16/22 08/04/24 History
cholecalciferol (vitamin D3) 25 25 mcg PO DAILY 10/16/22 08/04/24 History
mcg (1,000 unit) tablet (Vitamin
D3)
metformin 500 mg tablet 1,000 mg PO QPM 10/16/22 08/04/24 History
methotrexate sodium 2.5 mg tablet 10 mg PO HERNANDEZ 10/16/22 08/04/24 History
metoprolol succinate 25 mg 12.5 mg PO DAILY 10/16/22 08/04/24 History
tablet,extended release 24 hr
simvastatin 20 mg tablet 20 mg PO HS 10/16/22 08/04/24 History
solifenacin 10 mg tablet 10 mg PO DAILY 10/16/22 08/04/24 History
docusate sodium 100 mg capsule 100 mg PO DAILYPRN PRN constipation 08/04/24 08/04/24 History
(Colace)
leucovorin calcium 10 mg tablet 10 mg PO HERNANDEZ 08/04/24 08/04/24 History
naproxen sodium 220 mg tablet 440 mg PO BIDPRN PRN mild pain 08/04/24 08/04/24 History
(Aleve)
polyethylene glycol 3350 17 gram 17 g PO DAILYPRN PRN constipation 08/04/24 08/04/24 History
oral powder packet (Miralax)
therapeutic multivitamin 2 tab PO DAILY 08/04/24 08/04/24 History
umeclidinium 62.5 mcg-vilanterol 1 inh inhalation R DAILY 08/04/24 08/04/24 History
25 mcg/actuation powdr for
inhalation (Anoro Ellipta)
Review of Systems
-
All other systems: Negative unless noted
: Urgency and Other (suprapubic pressure )
Physical Exam
Vital Signs
Temp Pulse Resp BP Pulse Ox
98.4 F 113 18 107/55 96
08/05/24 07:04 08/05/24 08:30 08/05/24 07:30 08/05/24 07:08 08/05/24 07:30
Lab Results
08/05/24 03:36
08/05/24 03:36
Troponin I 0.033 ng/ml 08/04/24 16:10
She-O-Adbknihlhfa Pept 8260 pg/ml 08/04/24 16:10
Physical Exam
General: Comfortable
HEENT: Normocephalic and Anicteric
Respiratory: Clear
Cardiac: Irregular Rhythm and Murmur (Systolic murmur left upper sternal); Negative Rub or JVD
GI: Soft, Non Distended and Tender (suprapubic)
Musculoskeletal: Edema (1+ pitting )
Neuro: AO x 3
Hematologic/Lymphatic: No Lymphadenopathy
Psych: Calm
Impression / Plan
-
Impression
New onset atrial fibrillation
Essential hypertension
History of PSVT
UTI with urinary urgency/suprapubic pain
79-year-old female with history of PSVT hypertension, hyperlipidemia, type 2 diabetes, presented to the ED from primary care physician's office with new onset atrial fibrillation on EKG completed and reviewed by the PCP. Cardiology is consulted for
management of new onset atrial fib.
Assessment and plan
New onset atrial fibrillation
Abnormal UA, leukocytosis, symptomatic with increase urgency/frequency/suprapubic pain for the past 1 week
Suspect UTI which can trigger Atrial fibrillation.
HR between 100-110, irregularly irregular
Rate control
Continue Cardizem 5 mg gtt.
Continue metoprolol succinate 12.5 mg
Blood pressure soft this morning 107/55
Start Eliquis 5 mg BID [dosing criteria - age <80 (79), creat 1.0 (<1.5), weight 57kg (<60kg)]
Since patient has an active infection would not recommend cardioversion until the infection is treated
If the patient goes into sinus rhythm in 24 hours with minimal UTI symptoms then would consider JENNIFER with cardioversion
If the patient remains in A-fib and is stable then outpatient cardioversion, 3 weeks of uninterrupted Eliquis , and rate control
Repeat echo
Previous echocardiogram on 07/09/23 showed left ventricular ejection fraction 60 to 65%, mild/moderate eccentric MR, mild with peak/mean gradient across the aortic valve are 19/10, aortic valve area is equal to 1.9.
Essential hypertension
Blood pressure soft this morning 107/55
Hold lisinopril, monitor K
Monitor closely
History of PSVT
Continue metoprolol succinate
UTI with urinary urgency/suprapubic pain
Abnormal UA, leukocytosis, symptomatic with increase urgency/frequency/suprapubic pain for the past 1 week
Continue ceftriaxone per primary team
UC pending
Data Reviewed
-
EKG: Tracing Personally Visualized and interpreted, Report Reviewed by me and Discussed with Physician
Medical Tests (Nuc Med, Echo etc): Report Reviewed by me and Discussed with Physician
Labs: Labs Reviewed by me and Discussed with Physician
[2024-08-05] MEDS: TOPROL XL 12.5 MG PO (10:40)
[2024-08-05] MEDS: STERILE WATER FOR INJECTION 10 ML IV (10:40)
[2024-08-05] MEDS: ROCEPHIN 1000 MG IV (10:40)
[2024-08-05] MEDS: FLUSH (NSS) 2 FLUSH IV (10:41)
[2024-08-05] MEDS: VESICARE 10 MG PO (10:42)
[2024-08-05 11:05] LABS: Troponin I 0.017 ng/ml
[2024-08-05 11:23] LABS: TSH Reflex To Free T4 1.65 uIU/ml (0.47-4.68)
[2024-08-05 12:28] LABS: Glucose - Point of Care 301 mg/dl (70-99)
[2024-08-05] MEDS: ELIQUIS 5 MG PO ×2 (12:44→19:29)
[2024-08-05] MEDS: NOVOLOG FLEXPEN-LOW RESISTANCE 4 UNITS SC (12:45)
--- NOTE | 2024-08-05 13:35 | CM ---
Addendum entered by Riana Kim 08/05/24 14:19:
Telephone call to [facility] to check on co-pay for Eliquis 5 mg po bid. Her so-pay would be $ 38.70 a month. She can use the one month free coupon. Placed the one month free coupon in the red discharge folder.
Original Note:
Reviewed chart. Met with Mrs. Mota to review discharge plans. She states prior to admission she resides in an apartment with her spouse. She states she has a ramp to enter the apartment. She states prior to admission she was independent with
ambulation and adls. . She states she does not have any DME in the home. She states she has a prescription plan and uses [facility]. Medical work-up in progress The discharge plan is to return home with he spouse when medically stable.
[2024-08-05] MEDS: CARDIZEM 125 IV (15:04)
[2024-08-05 17:02] LABS: Glucose - Point of Care 333 mg/dl (70-99)
[2024-08-05] MEDS: NOVOLOG FLEXPEN-MODERATE RESISTANCE 4 UNITS SC (17:05)
--- NOTE | 2024-08-05 21:26 | PTCARENOTE ---
Received patient at change of shift. Afib on the monitor, HR in the 120s. Cardizem drip increased a per protocol, see documentation. Educated pt on Eliquis purpose related to Afib, pt verbalizes understanding. No complaints from pt at this time,
call barbosa within reach.
[2024-08-05 21:43] LABS: Glucose - Point of Care 312 mg/dl (70-99)
[2024-08-05] MEDS: LIPITOR 10 MG PO (22:21)
[2024-08-05] MEDS: MYSOLINE 150 MG PO (22:21)
[2024-08-06] VITALS (11 sets, daily range): BP systolic 118–158; BP diastolic 64–125; BMI 21.7
[2024-08-06] MEDS: CARDIZEM 125 IV (01:18)
[2024-08-06 05:39] LABS: Hematocrit 33.2 % (37.0-47.0); Hemoglobin 11.5 g/dL (12.0-16.0); Mean Corp Hgb Conc. 34.6 g/dL (33.0-37.0); Mean Corpuscular Hgb 32.8 pg (27.0-31.0); Mean Corpuscular Volume 94.6 fL (81.0-99.0); Mean Platelet Volume 9.9 fL (7.4-10.4); Platelet Count 258 10^3/uL (130-400); Red Blood Cell Count 3.51 10^6/uL (4.20-5.40); Red Cell Dist. Width 13.9 % (11.5-14.5); White Blood Cell Count 11.9 10^3/uL (4.8-10.8)
[2024-08-06 06:04] LABS: Blood Urea Nitrogen 22 mg/dl (7-17); Calcium 9.7 mg/dl (8.4-10.2); Carbon Dioxide 20 mmol/L (22-30); Chloride 105 mmol/L (98-107); Estimated Creatinine Clearance 48 ml/min; Glucose 260 mg/dl (70-99); Magnesium 1.8 mg/dl (1.6-2.3); Potassium 5.2 mmol/L (3.5-5.1); Sodium 139 mmol/L (135-145); eGFR > 60.00
[2024-08-06] MEDS: VESICARE 10 MG PO (07:29)
[2024-08-06] MEDS: ELIQUIS 5 MG PO ×2 (07:29→19:52)
[2024-08-06] MEDS: TOPROL XL 12.5 MG PO ×2 (07:29→18:01)
[2024-08-06 07:34] LABS: Glucose - Point of Care 264 mg/dl (70-99)
[2024-08-06] MEDS: NOVOLOG FLEXPEN-MODERATE RESISTANCE 3 UNITS SC (07:35)
[2024-08-06] MEDS: SPIRIVA RESPIMAT 2.5 MCG 2 PUFF INH (07:41)
[2024-08-06] MEDS: STRIVERDI RESPIMAT 2 PUFF INH (07:41)
--- NOTE | 2024-08-06 07:50 | W.PN.HOSP.TC ---
Addendum entered and electronically signed by Molly Sullivan MD 08/06/24 12:22:
# Non-ischemic myocardial injury
Original Note:
Today's Communication/Plan
-
see A/P
Assessment / Plan
Assessment / Plan
HPI: 79-year-old female with past medical history significant for hypertension, hyperlipidemia, type II diabetes, diverticular disease, and Rheumatoid Arthritis; who presented to [place] ED for evaluation following recommendation from primary
care, Dr. Wagner's. Patient reports she was in primary office for her 3 month's A1C follow up and when assessed by physician, he ordered an EKG which showed atrial fibrillation.
She was referred to ED for the new onset atrial fibrillation.
Patient stated she felt slightly dizzy and short of breath.
A/P:
# New onset Atrial fibrillation
s/p Cardizem gtt for rate control
Continue PLUG STITCHER Toprol 12.5 mg daily
started Eliquis 5 mg BID
possible ablation but would be outpatient
Echo unrevealing: EF 55-60%. Compared to prior from July 09, 2023, no significant change.
TSH 1.65
Cardiology on board
# Mildly elevated troponin due to non-ischemic myocardial injury
# UTI with urinary frequency/suprapubic pain
follow urine culture
cont empiric ceftriaxone
# MODESTA, resolved
SCr at 1.3 on admission, today at 0.8
# Hypertension
continue PLUG STITCHER metoprolol with holding parameter
# Hyperkalemia
K level 5.2 today, noted K level high for several months
hold PLUG STITCHER lisinopril
# Hyperlipidemia
continue simvastatin
# Type II Diabetes
Hold PLUG STITCHER glipizide, metformin during hospital stay
cover with ISS
recent A1C 7.6%
# Diverticular Disease
follows with GI outpatient
# Rheumatoid Arthritis
continue methotrexate
# Hypomagnesemia
repleted
Full Code
DVT Px: Eliquis
Dispo: PT OT eval
DW Retail Wireless Associate
total time spent 51 min
Anticipated Discharge: Within 24 hours
Subjective/Interval History
-
Date of Service: August 06, 2024
Objective Data
-
Labs:
Laboratory Results
08/06/24
05:03
WBC 11.9 H
Hgb 11.5 L
Hct 33.2 L
Plt Count 258
Sodium 139
Potassium 5.2 H
Chloride 105
Carbon Dioxide 20 L
BUN 22 H
Creatinine 0.8
Glucose 260 H
Calcium 9.7
Vital Signs:
Vital Signs
Temp Pulse Resp BP Pulse Ox
36.8 C 105 18 119/73 99
08/06/24 07:12 08/06/24 07:45 08/06/24 07:45 08/06/24 07:12 08/06/24 07:45
I&O
08/05/24 08/06/24 08/07/24
06:59 06:59 06:59
Intake Total 100 / 100 960 / 960
Balance 100 / 100 960 / 960
Review of Systems
-
Genitourinary: Reports Frequency
Physical Exam
-
General: Well Developed, Well Nourished, No Apparent Distress, Comfortable and Conversant; Negative Respiratory Distress
HEENT: Normocephalic, Atraumatic, Nose Appears Normal and Ears Appear Normal; Negative Oxygen
Respiratory: Clear to Auscultation and Non Labored Respirations; Negative Accessory Resp Muscle Use
Cardiac: Regular Rhythm and S1/S2
GI: Soft, Nontender, Nondistended and Normal Bowel Sounds
Skin: Warm and Dry
Neuro: Awake and Alert
Psych: Calm and Intact Judgement/Insight
Data Reviewed
-
Medical Tests (Nuc Med, Echo etc): Report Reviewed by me (echo)
Labs: Labs Reviewed by me
--- NOTE | 2024-08-06 08:07 | W.PN.CD ---
Today's Communication / Plan
-
- Amiodarone 150 mg IV then 400 mg BID for a week, then 200 mg QD.
- Treat UTI.
- Continue Eliquis.
Impression / Plan
-
Impression
New onset atrial fibrillation
Essential hypertension
History of PSVT
UTI with urinary urgency/suprapubic pain
79-year-old female with history of PSVT hypertension, hyperlipidemia, type 2 diabetes, presented to the ED from primary care physician's office with new onset atrial fibrillation on EKG completed and reviewed by the PCP. Cardiology is consulted for
management of new onset atrial fib.
Assessment and plan
New onset atrial fibrillation
Abnormal UA, leukocytosis, symptomatic with increase urgency/frequency/suprapubic pain for the past 1 week
Suspect UTI which can trigger Atrial fibrillation.
HR between 100-110, irregularly irregular
Rate control
Continue Cardizem 5 mg gtt.
Continue metoprolol succinate 12.5 mg
Blood pressure soft this morning 107/55
Start Eliquis 5 mg BID [dosing criteria - age <80 (79), creat 1.0 (<1.5), weight 57kg (<60kg)]
Since patient has an active infection would not recommend cardioversion until the infection is treated
Plan to start Amiodarone and continue Eliquis
JENNIFER and DCCV in 3-4 weeks if still in AF
Stop IV diltiazem
Continue Metoprolol 12.5 mg QD- can uptitrate if rates are high.
.
Echocardiogram on 07/09/23 showed left ventricular ejection fraction 60 to 65%, mild/moderate eccentric MR, mild with peak/mean gradient across the aortic valve are 19/10, aortic valve area is equal to 1.9.
ECHO 08/05/24: Stable LVEF 60%
Essential hypertension
Blood pressure soft this morning 107/55
Hold lisinopril, monitor K
Monitor closely
History of PSVT
Continue metoprolol succinate
UTI with urinary urgency/suprapubic pain
Abnormal UA, leukocytosis, symptomatic with increase urgency/frequency/suprapubic pain for the past 1 week
Continue ceftriaxone per primary team
UC pending
Physical Exam
Vital Signs/Labs
Vital Signs
Temp Pulse Resp BP Pulse Ox
98.3 F 105 18 119/73 99
08/06/24 07:12 08/06/24 07:45 08/06/24 07:45 08/06/24 07:12 08/06/24 07:45
08/05/24 08/06/24 08/07/24
06:59 06:59 06:59
Actual Weight 57.8 kg 55.6 kg
08/06/24 05:03
08/06/24 05:03
Magnesium 1.8 mg/dl (1.6-2.3) 08/06/24 05:03
Triglycerides 127 mg/dl (10-149) 08/05/24 03:36
LDL Cholesterol, Calc 59 mg/dl 08/05/24 03:36
VLDL Cholesterol, Calc 25 mg/dl (0-30) 08/05/24 03:36
HDL Cholesterol 52 mg/dl 08/05/24 03:36
08/04/24
16:10
[id number] Pept 8260
LAB Results
08/04/24 08/05/24
16:10 09:35
Troponin I 0.033 0.017
Physical Exam
Constitutional: No acute distress and Comfortable
EENT: Anicteric and Moist mucous membranes
Cardiovascular: Pedal edema is absent, JVD pressure is normal, Rhythm/rate is irregular and Systolic murmur present
Respiratory: Respiratory effort normal, Lungs clear to auscul., Wheeze Absent and Crackles Absent
GI: Soft, Non tender and Normal bowel sounds
Neuro/Psych: Alert, Oriented and AO x 3
Data Reviewed
-
Date of Service: August 06, 2024
Medical Decision Making: Reviewed Test Results, Independent Historian Assessment, Test Interpretation and Review of Case with other Provider
EKG: Tracing Personally Visualized and interpreted
Echo: Report Reviewed by me
Labs: Labs Reviewed by me
Old Records: Reviewed
[2024-08-06] MEDS: CORDARONE 103 MG IV (08:46)
--- NOTE | 2024-08-06 08:55 | PTCARENOTE ---
New IV placed in right forearm. Amino bolus infusing. Cardizem gtt stopped
--- NOTE | 2024-08-06 09:20 | CM ---
Reviewed chart. Met with Mrs. Mota to review discharge plans. Reviewed co-pay for Eliquis 5 mg po bid. Her co-pay is $38.70 a month. She is agreeable to the co-pay. Reviewed one month free coupon in her red discharge folder. [email or web address]
daniel one bottle of Eliquis in stock. Prior to admission she resides with her spouse in a an apartment with a ramp to enter. Prior to admission she was independent with ambulation and adls. She does not have any DME in the home She has a
prescription plan and uses [email or web address]. Medical work-up in progress. The discharge plan is to return home with her spouse when medically stable.
[2024-08-06] MEDS: ROCEPHIN 1000 MG IV (10:16)
[2024-08-06] MEDS: STERILE WATER FOR INJECTION 10 ML IV (10:17)
[2024-08-06 12:06] LABS: Glucose - Point of Care 345 mg/dl (70-99)
[2024-08-06] MEDS: NOVOLOG FLEXPEN-MODERATE RESISTANCE 4 UNITS SC (12:06)
--- NOTE | 2024-08-06 12:17 | PN.CDI ---
CDI
- -
CDI:
Physician Documentation Request
Admit Date: 08/04/24 22:34
Dear Doctor Nate,
Please review the following and provide your response in the progress notes.
Clinical Indicators:
The diagnosis of non-ischemic myocardial injury was documented on 08/06 PN.
- 08/06 PN 'Mildly elevated troponin due to non-ischemic myocardial injury'
- Resulted labs WNL:
Laboratory Tests
08/04/24 08/05/24
16:10 09:35
Troponin I 0.033 0.017
Please clarify the following:
- Non-ischemic myocardial injury remains a known or suspected condition for this patient and is further supported by (include additional documentation in the medical record)
- Non-ischemic myocardial injury has been ruled out
- Other (please specify)
Use of terms such as suspected, likely, concern for, or probable (associated with a specific diagnosis that is being evaluated, monitored, or treated as if it exists) are acceptable and can be coded in the inpatient setting, when documented at the
time of discharge.
Thank you,
Andrade Walker RN
CDI Specialist
Please use your independent medical judgment in providing your response.
--- NOTE | 2024-08-06 15:17 | PTOTSP ---
The patient denies changes in mobility and reports that she has remained independent while hospitalized, denies the need for PT evaluation. PT will sign off at this time; please reconsult if changes in function occur.
--- NOTE | 2024-08-06 16:45 | SUR.PHASEII ---
Pt currently at mod I level with basic self care and functional mobility in room and bathroom. Skilled OT not indicated at this time. Will sign off.
[2024-08-06 17:29] LABS: Glucose - Point of Care 419 mg/dl (70-99)
--- NOTE | 2024-08-06 17:44 | PTCARENOTE ---
Patient HR 140's at rest and 180's while using the bathroom. Metoprol order changed to BID. Blood sugar RRI high, stat glucose ordered and obtained. Sliding scale adjusted.
[2024-08-06 18:01] LABS: Glucose 446 mg/dl (70-99)
[2024-08-06] MEDS: NOVOLOG FLEXPEN-MODERATE RESISTANCE SC (18:12)
[2024-08-06] MEDS: NOVOLOG FLEXPEN 15 UNITS SC (18:18)
[2024-08-06] MEDS: PACERONE 400 MG PO (19:09)
[2024-08-06 20:47] LABS: Glucose - Point of Care 262 mg/dl (70-99)
[2024-08-06] MEDS: LIPITOR 10 MG PO (22:34)
[2024-08-06] MEDS: MYSOLINE 150 MG PO (22:34)
[2024-08-07] VITALS (13 sets, daily range): BP systolic 107–143; BP diastolic 73–107; BMI 21.7
--- NOTE | 2024-08-07 02:13 | PTCARENOTE ---
Rec'd pt at change of shift. Pt on tele monitor in AFib with HR in the 130's but in the 160's with activity. Pt baseline HR in the 120's to 130's. Pt AAO*3 and VSS. Pt denied any pain or discomfort. Pt asymptomatic denying any palpitations or
chest pain. Pt ambulated with staff assistance. Pt resting with call barbosa in reach and plan of care ongoing.
[2024-08-07 03:27] LABS: Glucose - Point of Care 288 mg/dl (70-99)
[2024-08-07 04:09] LABS: Hematocrit 36.7 % (37.0-47.0); Hemoglobin 12.8 g/dL (12.0-16.0); Mean Corp Hgb Conc. 34.9 g/dL (33.0-37.0); Mean Corpuscular Hgb 32.7 pg (27.0-31.0); Mean Corpuscular Volume 93.9 fL (81.0-99.0); Mean Platelet Volume 10.1 fL (7.4-10.4); Platelet Count 296 10^3/uL (130-400); Red Blood Cell Count 3.91 10^6/uL (4.20-5.40); Red Cell Dist. Width 13.6 % (11.5-14.5); White Blood Cell Count 17.6 10^3/uL (4.8-10.8)
[2024-08-07 04:36] LABS: Blood Urea Nitrogen 28 mg/dl (7-17); Calcium 10.5 mg/dl (8.4-10.2); Carbon Dioxide 17 mmol/L (22-30); Chloride 100 mmol/L (98-107); Estimated Creatinine Clearance 38 ml/min; Glucose 324 mg/dl (70-99); Magnesium 1.5 mg/dl (1.6-2.3); Potassium 5.5 mmol/L (3.5-5.1); Sodium 134 mmol/L (135-145); eGFR 57.66
[2024-08-07 07:19] LABS: Glucose - Point of Care 369 mg/dl (70-99)
--- NOTE | 2024-08-07 07:30 | PTCARENOTE ---
Assumed care this morning. Patient lightheaded and dizziness sitting on side of bed. Returned to bed. HR 140's. Accu check 369. IV digoxin, insulin and IV magnesium ordered. Diffuse abdominal tenderness, last BM was Sunday. Stool regime started.
X-Ray of her abdomen ordered. Complaints of dry mouth. Medications given with water
--- NOTE | 2024-08-07 07:33 | W.PN.CD ---
Today's Communication / Plan
-
- Replace Mag
- Digoxin x1 to improve rate control
- Use Digoxin prn
Impression / Plan
-
Impression
New onset atrial fibrillation
Essential hypertension
History of PSVT
UTI with urinary urgency/suprapubic pain
79-year-old female with history of PSVT hypertension, hyperlipidemia, type 2 diabetes, presented to the ED from primary care physician's office with new onset atrial fibrillation on EKG completed and reviewed by the PCP. Cardiology is consulted for
management of new onset atrial fib.
Assessment and plan
New onset atrial fibrillation
Abnormal UA, leukocytosis, symptomatic with increase urgency/frequency/suprapubic pain for the past 1 week
Suspect UTI which can trigger Atrial fibrillation.
HR between 100-110, irregularly irregular
Rate control
Continue Cardizem 5 mg gtt.
Continue metoprolol succinate 12.5 mg
Blood pressure soft this morning 107/55
Start Eliquis 5 mg BID [dosing criteria - age <80 (79), creat 1.0 (<1.5), weight 57kg (<60kg)]
Since patient has an active infection would not recommend cardioversion until the infection is treated
Plan to start Amiodarone and continue Eliquis
JENNIFER and DCCV in 3-4 weeks if still in AF
Stop IV diltiazem
Continue Metoprolol 12.5 mg QD- can uptitrate if rates are high.
.
Echocardiogram on 07/09/23 showed left ventricular ejection fraction 60 to 65%, mild/moderate eccentric MR, mild with peak/mean gradient across the aortic valve are 19/10, aortic valve area is equal to 1.9.
ECHO 08/05/24: Stable LVEF 60%
Essential hypertension
Blood pressure soft this morning 107/55
Hold lisinopril, monitor K
Monitor closely
History of PSVT
Continue metoprolol succinate
UTI with urinary urgency/suprapubic pain
Abnormal UA, leukocytosis, symptomatic with increase urgency/frequency/suprapubic pain for the past 1 week
Continue ceftriaxone per primary team
UC pending
Physical Exam
Vital Signs/Labs
Vital Signs
Temp Pulse Resp BP Pulse Ox
98 F 139 16 121/73 100
08/07/24 03:00 08/07/24 05:00 08/07/24 03:00 08/07/24 03:23 08/07/24 03:00
08/06/24 08/07/24 08/08/24
06:59 06:59 06:59
Actual Weight 55.6 kg 55.5 kg
08/07/24 03:34
08/07/24 03:34
Magnesium 1.5 mg/dl (1.6-2.3) L 08/07/24 03:34
Triglycerides 127 mg/dl (10-149) 08/05/24 03:36
LDL Cholesterol, Calc 59 mg/dl 08/05/24 03:36
VLDL Cholesterol, Calc 25 mg/dl (0-30) 08/05/24 03:36
HDL Cholesterol 52 mg/dl 08/05/24 03:36
08/04/24
16:10
Utr-[id number] Pept 8260
LAB Results
08/04/24 08/05/24
16:10 09:35
Troponin I 0.033 0.017
Physical Exam
Constitutional: No acute distress and Comfortable
EENT: Anicteric and Moist mucous membranes
Cardiovascular: JVD pressure is normal, Rhythm/rate is irregular and Systolic murmur present
Respiratory: Respiratory effort normal, Wheeze Absent and Crackles Absent
GI: Soft, Non tender and Normal bowel sounds
Neuro/Psych: Alert, Oriented and AO x 3
Data Reviewed
-
Date of Service: August 07, 2024
Medical Decision Making: Reviewed Test Results and Test Interpretation
EKG: Tracing Personally Visualized and interpreted
Echo: Report Reviewed by me
Labs: Labs Reviewed by me
Old Records: Reviewed
[2024-08-07] MEDS: NOVOLOG FLEXPEN-MODERATE RESISTANCE 9 UNITS SC ×2 (07:34→17:55)
--- NOTE | 2024-08-07 07:44 | W.PN.HOSP.TC ---
Today's Communication/Plan
-
see A/P
Assessment / Plan
Assessment / Plan
HPI: 79-year-old female with past medical history significant for hypertension, hyperlipidemia, type II diabetes, diverticular disease, and Rheumatoid Arthritis; who presented to [facility] ED for evaluation following recommendation from primary
care, Dr. Wagner's. Patient reports she was in primary office for her 3 month's A1C follow up and when assessed by physician, he ordered an EKG which showed atrial fibrillation.
She was referred to ED for the new onset atrial fibrillation.
Patient stated she felt slightly dizzy and short of breath.
A/P:
# New onset Atrial fibrillation
# Mildly elevated troponin due to non-ischemic myocardial injury
s/p Cardizem gtt for rate control
Continue [employer] Toprol 12.5 mg daily
Added Amiodarone, 400 mg BID for a week, then 200 mg QD.
Started Eliquis 5 mg BID
possible ablation outpatient
Echo unrevealing: EF 55-60%. Compared to prior from July 09, 2023, no significant change.
TSH 1.65
Cardiology on board
# UTI with urinary frequency/suprapubic pain
follow urine culture
cont empiric ceftriaxone
# MODESTA, resolved
SCr at 1.3 on admission, today at 1.0
# Hypertension
continue [employer] metoprolol with holding parameter
# Hyperkalemia
K level 5.5 today, noted K level high for several months
hold [employer] lisinopril
# Hypomagnesemia
replete IV
# Diffuse abdominal pain, suspect due to constipation
Dulcolax x1, Start miralax and Senokot-S
Check Abd XR
# Hyperlipidemia
continue simvastatin
# Type II Diabetes
Hold [employer] glipizide, metformin during hospital stay
cover with ISS
recent A1C 7.6%
# Diverticular Disease
follows with GI outpatient
# Rheumatoid Arthritis
continue methotrexate
Full Code
DVT Px: Eliquis
Dispo: PT OT eval: therapy not warranted
DW RN
Anticipated Discharge: 24 - 48 hours
Subjective/Interval History
-
Date of Service: August 07, 2024
Objective Data
-
Labs:
Laboratory Results
08/07/24
03:34
WBC 17.6 H
Hgb 12.8
Hct 36.7 L
Plt Count 296
Sodium 134 L
Potassium 5.5 H
Chloride 100
Carbon Dioxide 17 L
BUN 28 H
Creatinine 1.0
Glucose 324 H
Calcium 10.5 H
Vital Signs:
Vital Signs
Temp Pulse Resp BP Pulse Ox
36.6 C 139 16 121/73 100
08/07/24 03:00 08/07/24 05:00 08/07/24 03:00 08/07/24 03:23 08/07/24 03:00
I&O
08/06/24 08/07/24 08/08/24
06:59 06:59 06:59
Intake Total 960 / 960 120 / 120
Balance 960 / 960 120 / 120
Review of Systems
-
Abdomen/GI: Reports Abdominal Pain (diffuse)
Physical Exam
-
General: Well Developed, Well Nourished, No Apparent Distress, Comfortable and Conversant; Negative Respiratory Distress
HEENT: Normocephalic, Atraumatic, Nose Appears Normal and Ears Appear Normal; Negative Oxygen
Respiratory: Clear to Auscultation and Non Labored Respirations; Negative Accessory Resp Muscle Use
Cardiac: Regular Rhythm and S1/S2
GI: Soft, Nondistended, Normal Bowel Sounds and Tender (diffuse)
Skin: Warm and Dry
Neuro: Awake and Alert
Psych: Calm and Intact Judgement/Insight
Data Reviewed
-
Medical Tests (Nuc Med, Echo etc): Report Reviewed by me (echo)
Labs: Labs Reviewed by me
[2024-08-07] MEDS: LANOXIN 250 MCG IV (07:47)
[2024-08-07] MEDS: SPIRIVA RESPIMAT 2.5 MCG 2 PUFF INH (08:11)
[2024-08-07] MEDS: STRIVERDI RESPIMAT 2 PUFF INH (08:12)
[2024-08-07] MEDS: MAGNESIUM SULFATE 100 IV (08:21)
[2024-08-07] MEDS: SENOKOT-S 1 TABLET PO ×2 (08:22→19:39)
[2024-08-07] MEDS: VESICARE 10 MG PO (08:22)
[2024-08-07] MEDS: TOPROL XL 12.5 MG PO ×2 (08:22→19:40)
[2024-08-07] MEDS: MIRALAX 17 GRAMS PO (08:22)
[2024-08-07] MEDS: PACERONE 400 MG PO ×2 (08:23→19:40)
[2024-08-07] MEDS: ELIQUIS 5 MG PO ×2 (08:23→19:39)
[2024-08-07] MEDS: DULCOLAX 10 MG RECTAL (08:23)
[2024-08-07] MEDS: NOVOLOG FLEXPEN 5 UNITS SC ×4 (09:07→23:51)
--- NOTE | 2024-08-07 09:57 | PTCARENOTE ---
Patient retuned from x-ray. Ate breakfast, appetite fair. A-Fib HR 112, BP 110/89,99% on room air, afebrile, essential tremors. Call barbosa in reach
[2024-08-07] MEDS: STERILE WATER FOR INJECTION 10 ML IV (11:17)
[2024-08-07] MEDS: ROCEPHIN 1000 MG IV (11:17)
--- NOTE | 2024-08-07 11:39 | PTCARENOTE ---
Patient assisted to the bathroom, slightly lightheaded returning from the bathroom. BP 130/74. A-fib HR 120-140's. Yellow urine. Abdominal tenderness unchanged,passing gas, Dulcolax supp given. Afebrile,call barbosa in reach
--- NOTE | 2024-08-07 12:08 | CM ---
Reviewed chart. Met with and Mrs. Mota to review discharge plans. She states she felt dizzy this a.m. Prior to admission she resides with her spouse in an apartment with a ramp to enter. Prior to admission she was independent with
ambulation and adls. She does not have any DME in the home. She has a prescription plan and uses [facility]. Her Eliquis 5 mg po bid will be $30.70 a month. She is agreeable to the co-pay. Medical work-up in progress. The discharge plan is
to return home with her spouse when medically stable.
[2024-08-07 12:18] LABS: Glucose - Point of Care 260 mg/dl (70-99)
[2024-08-07] MEDS: NOVOLOG FLEXPEN-MODERATE RESISTANCE 5 UNITS SC (12:19)
[2024-08-07 17:30] LABS: Glucose - Point of Care 361 mg/dl (70-99)
[2024-08-07] MEDS: LIPITOR 10 MG PO (22:10)
[2024-08-07] MEDS: MYSOLINE 150 MG PO (22:10)
[2024-08-07 22:15] LABS: Glucose - Point of Care 281 mg/dl (70-99)
[2024-08-07] MEDS: TYLENOL 650 MG PO (23:55)
[2024-08-08] VITALS (9 sets, daily range): BP systolic 108–139; BP diastolic 73–92; PULSE 98–100; O2SAT 94; BMI 21.6
--- NOTE | 2024-08-08 00:01 | PTCARENOTE ---
Rec'd pt at change of shift. Pt on TELE in AFIB with HR in the 130's. Pt AAO*3 and VSS. Pt denied any pain or discomfort. Pt with elevated glucose at 281. Rec'd order for 5 units of insulin SQ now. Pt resting with call barbosa in reach. Plan of
care ongoing.
[2024-08-08 02:56] LABS: Glucose - Point of Care 255 mg/dl (70-99)
[2024-08-08 03:37] LABS: Hematocrit 35.4 % (37.0-47.0); Hemoglobin 12.6 g/dL (12.0-16.0); Mean Corp Hgb Conc. 35.6 g/dL (33.0-37.0); Mean Corpuscular Hgb 33.2 pg (27.0-31.0); Mean Corpuscular Volume 93.2 fL (81.0-99.0); Mean Platelet Volume 9.6 fL (7.4-10.4); Platelet Count 306 10^3/uL (130-400); Red Cell Dist. Width 13.6 % (11.5-14.5); White Blood Cell Count 16.6 10^3/uL (4.8-10.8)
[2024-08-08 03:46] LABS: Blood Urea Nitrogen 35 mg/dl (7-17); Calcium 9.9 mg/dl (8.4-10.2); Carbon Dioxide 20 mmol/L (22-30); Chloride 98 mmol/L (98-107); Estimated Creatinine Clearance 35 ml/min; Glucose 265 mg/dl (70-99); Magnesium 2.1 mg/dl (1.6-2.3); Potassium 5.1 mmol/L (3.5-5.1); Sodium 134 mmol/L (135-145); eGFR 51.43
[2024-08-08 07:42] LABS: Glucose - Point of Care 369 mg/dl (70-99)
[2024-08-08] MEDS: NOVOLOG FLEXPEN 5 UNITS SC ×3 (08:01→17:01)
[2024-08-08] MEDS: NOVOLOG FLEXPEN-MODERATE RESISTANCE 9 UNITS SC (08:01)
[2024-08-08] MEDS: SPIRIVA RESPIMAT 2.5 MCG 2 PUFF INH (08:07)
[2024-08-08] MEDS: STRIVERDI RESPIMAT 2 PUFF INH (08:07)
[2024-08-08] MEDS: SENOKOT-S 1 TABLET PO ×2 (08:08→19:38)
[2024-08-08] MEDS: VESICARE 10 MG PO (08:08)
[2024-08-08] MEDS: MIRALAX 17 GRAMS PO (08:08)
[2024-08-08] MEDS: TOPROL XL 12.5 MG PO (08:08)
[2024-08-08] MEDS: ELIQUIS 5 MG PO ×2 (08:09→19:37)
[2024-08-08] MEDS: PACERONE 400 MG PO ×2 (08:09→19:38)
--- NOTE | 2024-08-08 09:30 | W.PN.HOSP.TC ---
Today's Communication/Plan
-
see A/P
Assessment / Plan
Assessment / Plan
HPI: 79-year-old female with past medical history significant for hypertension, hyperlipidemia, type II diabetes, diverticular disease, and Rheumatoid Arthritis; who presented to [facility] ED for evaluation following recommendation from primary
care, Dr. Wagner's. Patient reports she was in primary office for her 3 month's A1C follow up and when assessed by physician, he ordered an EKG which showed atrial fibrillation.
She was referred to ED for the new onset atrial fibrillation.
Patient stated she felt slightly dizzy and short of breath.
A/P:
# New onset Atrial fibrillation
# Mildly elevated troponin due to non-ischemic myocardial injury
s/p Cardizem gtt for rate control
Continue [employer] Toprol 12.5 mg daily
Added Amiodarone, 400 mg BID for a week, then 200 mg QD.
Started Eliquis 5 mg BID
possible ablation outpatient
Echo unrevealing: EF 55-60%. Compared to prior from July 09, 2023, no significant change.
TSH 1.65
Cardiology on board
# UTI with Klebsiella
s/p empiric ceftriaxone x3 days
# MODESTA, resolved
SCr at 1.3 on admission, today at 1.1
# Hypertension
continue [employer] metoprolol with holding parameter
# Hyperkalemia
K level 5.1 today, noted K level high for several months
hold [employer] lisinopril
# Hypomagnesemia
repleted
# Diffuse abdominal pain, suspect due to constipation
s/p bowel regimen
AXR confirmed constipation
Cont miralax and Senokot-S
# Hyperlipidemia
continue simvastatin
# Type II Diabetes
Hold [employer] glipizide, metformin during hospital stay
cover with ISS
recent A1C 7.6%
# Diverticular Disease
follows with GI outpatient
# Rheumatoid Arthritis
continue methotrexate
Full Code
DVT Px: Eliquis
Dispo: PT OT eval: therapy not warranted
DW RN
DW Daughter at bedside
Anticipated Discharge: 24 - 48 hours
Subjective/Interval History
-
Date of Service: August 08, 2024
Objective Data
-
Labs:
Laboratory Results
08/08/24
03:03
WBC 16.6 H
Hgb 12.6
Hct 35.4 L
Plt Count 306
Sodium 134 L
Potassium 5.1
Chloride 98
Carbon Dioxide 20 L
BUN 35 H
Creatinine 1.1 H
Glucose 265 H
Calcium 9.9
Vital Signs:
Vital Signs
Temp Pulse Resp BP Pulse Ox
36.9 C 117 14 128/73 98
08/08/24 07:14 08/08/24 09:00 08/08/24 08:14 08/08/24 08:09 08/08/24 08:30
I&O
08/07/24 08/08/24 08/09/24
06:59 06:59 06:59
Intake Total 120 / 120 480 / 480
Balance 120 / 120 480 / 480
Review of Systems
-
Abdomen/GI: Denies Abdominal Pain
Physical Exam
-
General: Well Developed, Well Nourished, No Apparent Distress, Comfortable and Conversant; Negative Respiratory Distress
HEENT: Normocephalic, Atraumatic, Nose Appears Normal and Ears Appear Normal; Negative Oxygen
Respiratory: Clear to Auscultation and Non Labored Respirations; Negative Accessory Resp Muscle Use
Cardiac: Regular Rhythm and S1/S2
GI: Soft, Nontender, Nondistended and Normal Bowel Sounds
Skin: Warm and Dry
Neuro: Awake and Alert
Psych: Calm and Intact Judgement/Insight
Data Reviewed
-
Medical Tests (Nuc Med, Echo etc): Report Reviewed by me (echo)
Labs: Labs Reviewed by me
--- NOTE | 2024-08-08 11:05 | W.PN.CD ---
Today's Communication / Plan
-
Increase metoprolol (convert to tartrate to allow more rapid dose adjustment but can go home on succinate)
Rate with activity 160-180 seems to fast for home
Don' need perfect rate control but need better rate control
Continue Amio 400 mg BID for a week, then 200 mg QD.
Treat UTI.
Continue Eliquis.
If in AFib in 3-4 weeks then cardovert
Impression / Plan
-
79-year-old female with history of PSVT hypertension, hyperlipidemia, type 2 diabetes, presented to the ED from primary care physician's office with new onset atrial fibrillation on EKG completed and reviewed by the PCP. Cardiology is consulted for
management of new onset atrial fib
Impression
New onset atrial fibrillation
- On Eliquis
- On amio 400 bid (plan one week then 200 a day)
- Metoprolol dose needs to be increased for better rate control
- If in AFib in 3-4 weeks cardiovert
- At some point later stop amio and decide custodial plan
Mild/mod MR and mild
Essential hypertension
- Stay off lisinopril to give room for metoprolol for now
History of PSVT
UTI
DM
Subjective: Fine at rest light headed with activity
Echocardiogram on 07/09/23 showed left ventricular ejection fraction 60 to 65%, mild/moderate eccentric MR, mild with peak/mean gradient across the aortic valve are 19/10, aortic valve area is equal to 1.9.
ECHO 08/05/24: Stable, LVEF 60%
Physical Exam
Vital Signs/Labs
Vital Signs
Temp Pulse Resp BP Pulse Ox
98.5 F 117 14 128/73 98
08/08/24 07:14 08/08/24 09:00 08/08/24 08:14 08/08/24 08:09 08/08/24 08:30
08/07/24 08/08/2408/09/24
06:59 06:59 06:59
Actual Weight 55.5 kg
08/08/24 03:03
08/08/24 03:03
Magnesium 2.1 mg/dl (1.6-2.3) 08/08/24 03:03
Triglycerides 127 mg/dl (10-149) 08/05/24 03:36
LDL Cholesterol, Calc 59 mg/dl 08/05/24 03:36
VLDL Cholesterol, Calc 25 mg/dl (0-30) 08/05/24 03:36
HDL Cholesterol 52 mg/dl 08/05/24 03:36
08/04/24
16:10
[id number]-[id number] Pept 8260
LAB Results
08/05/24
09:35
Troponin I 0.017
Physical Exam
Constitutional: No acute distress
EENT: Anicteric
Cardiovascular: Rhythm/rate is irregular (fast) and Systolic murmur present
Respiratory: Respiratory effort normal and Lungs clear to auscul.
GI: Soft and Distention absent
Neuro/Psych: AO x 3 and Motor deficits absent
Data Reviewed
-
Date of Service: August 08, 2024
[2024-08-08 11:57] LABS: Glucose - Point of Care 306 mg/dl (70-99)
[2024-08-08] MEDS: NOVOLOG FLEXPEN-MODERATE RESISTANCE 7 UNITS SC (12:42)
[2024-08-08] MEDS: LOPRESSOR 25 MG PO ×3 (12:44→23:15)
--- NOTE | 2024-08-08 12:45 | CM ---
Addendum entered by Riana Kim 08/08/24 12:54:
Telephone call to [facility] to check if they have Eliquis 5 mg bid in stock. [facility] states they have Eliquis in stock.
Original Note:
Reviewed chart. Met with and Mrs. Mota to review discharge plans. Reviewed [facility] Services with them. They are agreeable to VNA Intake. They have selected [facility]. [facility] to [facility]. Sent the
referral. Prior to admission she resides with her spouse in an apartment with a ramp to enter. Prior to admission she was independent with ambulation and adls. She does not have ant DME in the the home. She has a prescription plan and uses [facility]. Medial work-up in progress. The discharge plan isto return home with her spouse and [facility] when medically stable.
[2024-08-08 17:00] LABS: Glucose - Point of Care 196 mg/dl (70-99)
[2024-08-08] MEDS: NOVOLOG FLEXPEN-MODERATE RESISTANCE 1 UNITS SC (17:05)
--- NOTE | 2024-08-08 17:46 | PTCARENOTE ---
monitor remains Afib, HR in the low 100's. patient has visible tremors and also has a hard time finding words at times. her is a bedside and noticed that too for some time, they will talk to their primary physician concerning this issue.
patient still doesn't have much energy, uses call barbosa to ask for assistance to BR. patient at present sitting in chair eating dinner with call barbosa beside her.
[2024-08-08 21:53] LABS: Glucose - Point of Care 204 mg/dl (70-99)
[2024-08-08] MEDS: MYSOLINE 150 MG PO (22:53)
[2024-08-08] MEDS: LIPITOR 10 MG PO (22:53)
--- NOTE | 2024-08-08 23:19 | PTCARENOTE ---
Received patient at change of shift. Afib on the monitor, HR in 100s. HR goes to 120s when ambulating. VSS. Educated pt on stool softeners, pt verbalizes understanding. No complaints from pt at this time. Call barbosa within reach.
[2024-08-09 02:53] VITALS: BP 131/85
[2024-08-09 03:04] LABS: Glucose - Point of Care 242 mg/dl (70-99)
[2024-08-09 03:51] LABS: Hematocrit 35.9 % (37.0-47.0); Hemoglobin 12.8 g/dL (12.0-16.0); Mean Corp Hgb Conc. 35.7 g/dL (33.0-37.0); Mean Corpuscular Hgb 33.2 pg (27.0-31.0); Mean Corpuscular Volume 93.2 fL (81.0-99.0); Mean Platelet Volume 9.7 fL (7.4-10.4); Platelet Count 344 10^3/uL (130-400); Red Blood Cell Count 3.85 10^6/uL (4.20-5.40); Red Cell Dist. Width 13.7 % (11.5-14.5); White Blood Cell Count 17.2 10^3/uL (4.8-10.8)
[2024-08-09 04:15] LABS: Blood Urea Nitrogen 31 mg/dl (7-17); Carbon Dioxide 21 mmol/L (22-30); Chloride 96 mmol/L (98-107); Estimated Creatinine Clearance 38 ml/min; Glucose 255 mg/dl (70-99); Magnesium 1.8 mg/dl (1.6-2.3); Potassium 5.1 mmol/L (3.5-5.1); Sodium 133 mmol/L (135-145); eGFR 57.66
[2024-08-09 06:51] VITALS: BP 148/88
[2024-08-09] MEDS: LOPRESSOR 25 MG PO (06:51)
[2024-08-09 07:44] VITALS: BP 95/75
[2024-08-09 07:47] VITALS: BP 110/89
--- NOTE | 2024-08-09 07:51 | W.PN.HOSP.TC ---
Addendum entered and electronically signed by Molly Sullivan MD 08/09/24 13:00:
Updated on the phone
Discussed with stock checker
Total DC time 40 minutes
Original Note:
Today's Communication/Plan
-
see A/P
Assessment / Plan
Assessment / Plan
HPI: 79-year-old female with past medical history significant for hypertension, hyperlipidemia, type II diabetes, diverticular disease, and Rheumatoid Arthritis; who presented to [place] ED for evaluation following recommendation from primary
care, Dr. Wagner's. Patient reports she was in primary office for her 3 month's A1C follow up and when assessed by physician, he ordered an EKG which showed atrial fibrillation.
She was referred to ED for the new onset atrial fibrillation.
Patient stated she felt slightly dizzy and short of breath.
A/P:
# New onset Atrial fibrillation
# Mildly elevated troponin due to non-ischemic myocardial injury
s/p Cardizem gtt for rate control
Continue BB, Toprol changed to Lopressor 25 Q6H
Added Amiodarone, 400 mg BID for a week, then 200 mg QD.
Started Eliquis 5 mg BID
possible ablation outpatient
Echo unrevealing: EF 55-60%. Compared to prior from July 09, 2023, no significant change.
TSH 1.65
Cardiology on board
# UTI with Klebsiella
s/p empiric ceftriaxone x3 days
# Leucocytosis, possibly reactive
afebrile, non-toxic appearing
repeat CBC outpt with result to PCP
# MODESTA, resolved
SCr at 1.3 on admission, today at 1.0
# Hypertension
continue BB with holding parameter
# Hyperkalemia
K level 5.1 today, noted K level high for several months
hold [employer] lisinopril
# Hypomagnesemia
repleted
# Diffuse abdominal pain, suspect due to constipation, resolved
AXR confirmed constipation
s/p bowel regimen
Cont Senokot-S BID, miralax PRN
# Hyperlipidemia
continue simvastatin
# Type II Diabetes
Hold [employer] glipizide, metformin during hospital stay
cover with ISS
recent A1C 7.6%
# Diverticular Disease
follows with GI outpatient
# Rheumatoid Arthritis
continue methotrexate
Full Code
DVT Px: Eliquis
Dispo: PT OT eval: therapy not warranted
DW Card team
Anticipated Discharge: Within 24 hours
Subjective/Interval History
-
Date of Service: August 09, 2024
Objective Data
-
Labs:
Laboratory Results
08/09/24
03:03
WBC 17.2 H
Hgb 12.8
Hct 35.9 L
Plt Count 344
Sodium 133 L
Potassium 5.1
Chloride 96 L
Carbon Dioxide 21 L
BUN 31 H
Creatinine 1.0
Glucose 255 H
Calcium 10.0
Vital Signs:
Vital Signs
Temp Pulse Resp BP Pulse Ox
36.6 C 98 18 148/88 100
08/09/24 07:42 08/09/24 07:42 08/09/24 02:57 08/09/24 06:51 08/09/24 07:42
I&O
08/08/24 08/09/24 08/10/24
06:59 06:59 05:59
Intake Total 480 / 480
Balance 480 / 480
Review of Systems
-
All other systems: Reviewed and negative
Abdomen/GI: Denies Abdominal Pain
Physical Exam
-
General: Well Developed, Well Nourished, No Apparent Distress, Comfortable and Conversant; Negative Respiratory Distress
HEENT: Normocephalic, Atraumatic, Nose Appears Normal and Ears Appear Normal; Negative Oxygen
Respiratory: Clear to Auscultation and Non Labored Respirations; Negative Accessory Resp Muscle Use
Cardiac: Regular Rhythm and S1/S2
GI: Soft, Nontender, Nondistended and Normal Bowel Sounds
Skin: Warm and Dry
Neuro: Awake and Alert
Psych: Calm and Intact Judgement/Insight
Data Reviewed
-
Medical Tests (Nuc Med, Echo etc): Report Reviewed by me (echo)
Labs: Labs Reviewed by me
[2024-08-09 08:19] LABS: Glucose - Point of Care 292 mg/dl (70-99)
[2024-08-09] MEDS: STRIVERDI RESPIMAT 2 PUFF INH (08:23)
[2024-08-09] MEDS: SPIRIVA RESPIMAT 2.5 MCG 2 PUFF INH (08:23)
[2024-08-09] MEDS: PACERONE 400 MG PO (08:32)
[2024-08-09] MEDS: VESICARE 10 MG PO (08:32)
[2024-08-09] MEDS: SENOKOT-S 1 TABLET PO (08:33)
[2024-08-09] MEDS: NOVOLOG FLEXPEN 5 UNITS SC ×2 (08:33→12:28)
[2024-08-09] MEDS: ELIQUIS 5 MG PO (08:33)
[2024-08-09] MEDS: NOVOLOG FLEXPEN-MODERATE RESISTANCE 5 UNITS SC (08:34)
[2024-08-09] MEDS: MIRALAX PO (08:38)
[2024-08-09 08:55] LABS: Glucose - Point of Care 280 mg/dl (70-99)
--- NOTE | 2024-08-09 09:43 | W.PN.CD ---
Addendum entered and electronically signed by John Murillo MD (Ellie) 08/09/24 12:55:
I saw and examined the patient.
The PARIMUTUEL CLERK's note was reviewed and I agree with the note.
Comment:
79-year-old female who is hospitalized for new onset atrial fibrillation. Her metoprolol has been uptitrated and we will increase again today to 75 mg twice daily. At rest her heart rates are in the 80s to 90s. I have asked her to get a pulse
oximeter for home to continue to monitor her heart rates. If they are consistently elevated (greater than 110) she will call our office for further increase in her metoprolol. She should continue amiodarone 400 mg twice daily (for 1 week and then
down to 200 daily) and apixaban 5 mg twice daily. I will send a message to our front load trash truck driver to schedule her a follow-up appointment. She can expect a call from our office on Sunday.
Original Note:
Today's Communication / Plan
-
increase Lopressor to 75mg BID and monitor rates.
Impression / Plan
-
79-year-old female with history of PSVT hypertension, hyperlipidemia, type 2 diabetes, presented to the ED from primary care physician's office with new onset atrial fibrillation on EKG completed and reviewed by the PCP. Cardiology is consulted for
management of new onset atrial fibrillation.
Impression/Plan:
Atrial fibrillation - New onset, RVR.
- rates improved on Lopressor 25mg Q6h while here, will switch to Toprol XL daily at d/c.
- resting rates 100-105 bpm, will increase Lopressor to 75mg BID and monitor.
- On Eliquis, continue.
- On Amio 400 bid (plan one week then 200mg a day).
- If in AFib in 3-4 weeks at outpatient follow up, then can schedule cardioversion.
- PSVT history.
Mild/mod MR and mild - stable.
- asymptomatic.
Essential hypertension - stable.
- Stay off lisinopril to give room for metoprolol for now.
UTI - management per hospitalist.
DM - management per hospitalist.
Subjective:
feels improved today, slept very well last night.
denies palpitations, sob or chest pain.
Echocardiogram on 07/09/23: EF 60 to 65%, mild/moderate eccentric MR, mild with peak/mean gradient across the aortic valve are 19/10, aortic valve area is 1.9.
ECHO 08/05/24: Stable/unchanged from prior. LVEF 60%, mild cLVH, normal RV, mild MR, mild , mild AR, mild/mod TR, PASP 35mmHg.
Physical Exam
Vital Signs/Labs
Vital Signs
Temp Pulse Resp BP Pulse Ox
97.8 F 95 16 110/89 99
08/09/24 07:42 08/09/24 09:00 08/09/24 08:32 08/09/24 07:47 08/09/24 08:32
08/08/24 08/09/24 08/10/24
06:59 06:59 05:59
Actual Weight 121 lb 14.65 oz
08/09/24 03:03
08/09/24 03:03
Magnesium 1.8 mg/dl (1.6-2.3) 08/09/24 03:03
Triglycerides 127 mg/dl (10-149) 08/05/24 03:36
LDL Cholesterol, Calc 59 mg/dl 08/05/24 03:36
VLDL Cholesterol, Calc 25 mg/dl (0-30) 08/05/24 03:36
HDL Cholesterol 52 mg/dl 08/05/24 03:36
08/04/24
16:10
Zln-A-Yvmroislugx Pept 8260
Physical Exam
Constitutional: No acute distress
EENT: Anicteric and Moist mucous membranes
Cardiovascular: Rhythm/rate is irregular
Respiratory: Respiratory effort normal
GI: Soft, Non tender and Normal bowel sounds
Neuro/Psych: AO x 3
Other: Skin (warm, dry)
Data Reviewed
-
Date of Service: August 09, 2024
Medical Decision Making: Reviewed Test Results
EKG: Tracing Personally Visualized and interpreted
Echo: Report Reviewed by me
Labs: Labs Reviewed by me
--- NOTE | 2024-08-09 10:22 | PTCARENOTE ---
Rec'd pt at handoff. Tele- afib. HR 90-100s. Pt currently has no c/o pain/discomfort at this time. POC reviewed w/ pt. Verbalizes understanding.
[2024-08-09 10:49] VITALS: BP 119/70
[2024-08-09] MEDS: LOPRESSOR 50 MG PO (10:50)
--- NOTE | 2024-08-09 12:18 | W.DCSUMMARY ---
Discharge Summary
Discharge Data
Date of Admission: 08/04/24
Date of Discharge: 08/09/24
-
Pending Results: No
Hospital Course
Principal Diagnosis:
New onset Atrial fibrillation
Urinary tract infection (UTI) with Klebsiella
Leucocytosis, related to UTI and possibly reactive
Chronic Diagnoses:�
Hypertension
Hyperlipidemia
Type II Diabetes. A1C 7.6%
Diverticular Disease
Rheumatoid Arthritis
Consultations:�
Cardiology
Procedures:�
None
Clinical course:�
This is a 79-year-old female with past medical history as stated above, who was sent in by her primary care physician for arrhythmia.
She was found to be in new onset atrial fibrillation in the emergency department.
Problem 1:
New onset Atrial fibrillation.
She was treated with Cardizem drip initially, and was started with amiodarone.
She was discharged with amiodarone 400 mg twice daily to continue for 1 more week, then 200 mg daily going forward after that.
Her Toprol was changed to Lopressor and she was discharged with Lopressor 75 mg twice daily.
Her heart rate goes less than 110 outpatient.
She was also started with Eliquis 5 mg twice daily which she can continue going forward.
She can follow-up with cardiology outpatient for eventual cardioversion/ablation eval.
Of note, her echo was unrevealing: EF 55-60%. Compared to prior from July 09, 2023, no significant change.
Her TSH was within normal limits at 1.65.
Problem 2:
UTI with Klebsiella.
She received empiric ceftriaxone for 3 days while in the hospital.
Problem 3:
Leucocytosis, due to UTI and possibly reactive.
The patient is afebrile and non-toxic appearing.
She has been informed to check repeat CBC with result to her PCP 1 week.
As for the rest of her medical problems, they were stable during her hospital stay.
Discharge Plan
-
Patient Disposition: Home with Home Care
Discharge Diagnosis/Procedures: New onset Atrial fibrillation;
UTI with Klebsiella (status post ceftriaxone x3 days);
Leucocytosis (possibly reactive);
Resolved acute kidney injury;
Constipation (resolved);
Hyperkalemia (stopped lisinopril)
Condition: Fair
Diet: As tolerated
Activity: As tolerated
Driving Restrictions: Not until seen by your Dr
Blood Work: CBC (for high white count) with result to your PCP
Activity Restrictions/Additional Instructions:
heart rate goal is less than 110 as an outpatient.
Referrals:
[facility] [Outside]
Zach Wagner MD [Family Provider] - in less than 1 week
Additional Discharge Medication Instructions: For heart rate control, take:
Amiodarone 400 twice daily for one week, then 200 mg daily after that.
Lopressor 75 mg twice daily
You were started with Eliquis (blood thinner) for your Atrial fibrillation
Prescriptions:
New
Eliquis 5 mg Tablet
5 mg PO BID Qty: 60 0RF
amiodarone 200 mg Tablet
400 mg PO BID Qty: 120 0RF
Rx Instructions:
400 BID for 1 week, then 200 mg daily
metoprolol tartrate 25 mg tablet
75 mg PO BID Qty: 90 0RF
Continued
metformin 500 MG tablet
1,500 mg PO DAILY
Patient Comments:
3 tablets in AM
2 tablets in PM
glipizide 5 MG tablet
2.5 mg PO DAILY
primidone 50 MG tablet
150 mg PO HS
metformin 500 mg Tablet
1,000 mg PO QPM
methotrexate sodium 2.5 mg Tablet
10 mg PO HERNANDEZ
simvastatin 20 mg Tablet
20 mg PO HS
alendronate [Fosamax] 70 mg Tablet
70 mg PO MO
solifenacin 10 mg Tablet
10 mg PO DAILY
cholecalciferol (vitamin D3) [Vitamin D3] 25 mcg (1,000 unit) Tablet
25 mcg PO DAILY
polyethylene glycol 3350 [Miralax] 17 gram Powder In Packet
17 g PO DAILYPRN PRN (Reason: constipation)
therapeutic multivitamin Tablet
2 tab PO DAILY
leucovorin calcium 10 mg Tablet
10 mg PO HERNANDEZ
naproxen sodium [Aleve] 220 mg Tablet
440 mg PO BIDPRN PRN (Reason: mild pain)
docusate sodium [Colace] 100 mg Capsule
100 mg PO DAILYPRN PRN (Reason: constipation)
Anoro Ellipta 62.5-25 mcg/actuation Blister With Device
1 inh INHALATION R DAILY
Discontinued
lisinopril 10 MG tablet
10 mg PO DAILY
metoprolol succinate 25 mg Tablet Extended Release 24 Hr
12.5 mg PO DAILY
Discharge Orders:
Discharge Patient (As Directed); Ordered 08/09/24
Ordered By: Molly Sullivan
Care Plan Goals
Care Plan Goals:
Problem: Readiness for enhanced knowledge related to diagnosis and treatment plan
Goal: Understand your diagnosis and treatment plan needs, including medications if applicable.
Instructions: Know your diagnosis, underlying causes and treatment plan options, including medications if applicable. Consult with your health care team to learn about your diagnosis and treatment plan, including medications if applicable.
Discharge Date and Time
Print Language: SWEDISH
[2024-08-09 12:28] LABS: Glucose - Point of Care 371 mg/dl (70-99)
[2024-08-09] MEDS: NOVOLOG FLEXPEN-MODERATE RESISTANCE 9 UNITS SC ×2 (12:28→14:12)
--- NOTE | 2024-08-09 13:09 | PTCARENOTE ---
Pt accucheck 371. 14 units Novolog given as ordered and per protocol. Molly Sullivan made aware and no new orders placed.
[2024-08-09 13:34] VITALS: BP 104/66
[2024-08-09 13:58] LABS: Glucose - Point of Care 390 mg/dl (70-99)
[2024-08-09] MEDS: GLUCOTROL 2.5 MG PO (14:12)
--- NOTE | 2024-08-09 14:12 | PTCARENOTE ---
Accucheck 390. Molly Sullivan notified and orders placed. Glipizide 2.5mg and 9 units Novolog administered. See MAR.
--- NOTE | 2024-08-09 14:34 | PTCARENOTE ---
Discharge instructions reviewed w/ pt and spouse. Verbalizes understanding. Tele and IV removed. Belongings collected and sent home w/ pt. Escorted via WC and staff assist. Discharged to home.
== END 2024-08-09 14:37 | disposition home health service (06) | DRG 309 ==
LOC: IVU 22:34
PROVIDERS: Clinical Nurse Specialist Family Health; Nurse Practitioner Family; Registered Nurse; ADMITTING PHYSICIAN Internal Medicine; ATTENDING PHYSICIAN Internal Medicine; CONSULT PHYSICIAN Internal Medicine; EMERGENCY PHYSICIAN Student in an Organized Health Care Education/Training Program; FAMILY PHYSICIAN Internal Medicine
DX: I48.0 Paroxysmal atrial fibrillation (principal); N17.9 Acute kidney failure, unspecified; N39.0 Urinary tract infection, site not specified; B96.1 Klebsiella pneumoniae [K. pneumoniae] as the cause of diseases classified elsewhere; I10 Essential (primary) hypertension; E78.00 Pure hypercholesterolemia, unspecified; E11.9 Type 2 diabetes mellitus without complications; M06.9 Rheumatoid arthritis, unspecified; K57.30 Diverticulosis of large intestine without perforation or abscess without bleeding; E87.5 Hyperkalemia; K59.00 Constipation, unspecified; Z79.4 Long term (current) use of insulin; Z79.899 Other long term (current) drug therapy
CPT/HCPCS: 71046; 74018; 80048; 80053; 80061; 81003; 81015; 82947; 82962; 83735; 83880; 84443; 84484; 85025; 85027; 87077; 87086; 87186; 93005; 93306; 94640; 96361; 96374; 97162; 97166; 99285; J1160

== ENCOUNTER → 2024-08-14 10:00 | Outpatient (REF) | payer MEDICARE, BC, SELFPAY ==
[2024-08-14 16:39] LABS: % Basophils 0.5 % (0-2); % Eosinophils 1.1 % (0-6); % Lymphocytes 7.7 % (20.5-51.1); % Neutrophils 85.7 % (42.2-75.2); Absolute Basophils 0.1 10^3/uL (0-0.2); Absolute Eosinophils 0.2 10^3/uL (0-0.7); Absolute Immature Granulocytes 0.1 10^3/uL (0-0.05); Absolute Lymphocytes 1.1 10^3/uL (1.2-3.4); Absolute Monocytes 0.5 10^3/uL (0.1-0.6); Absolute Neutrophils 11.6 10^3/uL (1.4-6.5); Hematocrit 32.7 % (37.0-47.0); Hemoglobin 10.9 g/dL (12.0-16.0); Mean Corp Hgb Conc. 33.3 g/dL (33.0-37.0); Mean Corpuscular Hgb 32.6 pg (27.0-31.0); Mean Corpuscular Volume 97.9 fL (81.0-99.0); Mean Platelet Volume 9.9 fL (7.4-10.4); Nucleated Red Blood Cells % 0 %; Platelet Count 403 10^3/uL (130-400); Red Blood Cell Count 3.34 10^6/uL (4.20-5.40); Red Cell Dist. Width 14.4 % (11.5-14.5); White Blood Cell Count 13.6 10^3/uL (4.8-10.8)
== END ==
LOC: CLAB 10:00
PROVIDERS: ATTENDING PHYSICIAN Internal Medicine
DX: D64.9 Anemia, unspecified (principal); I48.91 Unspecified atrial fibrillation
CPT/HCPCS: 36415; 85025

== ENCOUNTER → 2024-09-08 09:49 | Outpatient (REF) | payer MEDICARE, BC, SELFPAY ==
[2024-09-08 11:37] LABS: % Basophils 0.4 % (0-2); % Eosinophils 0.8 % (0-6); % Immature Granulocytes 0.8 % (0-0.5); % Lymphocytes 6.6 % (20.5-51.1); % Monocytes 5.3 % (1.7-9.3); % Neutrophils 86.1 % (42.2-75.2); Absolute Eosinophils 0.1 10^3/uL (0-0.7); Absolute Immature Granulocytes 0.1 10^3/uL (0-0.05); Absolute Lymphocytes 0.7 10^3/uL (1.2-3.4); Absolute Monocytes 0.5 10^3/uL (0.1-0.6); Absolute Neutrophils 8.7 10^3/uL (1.4-6.5); Hematocrit 28.7 % (37.0-47.0); Mean Corp Hgb Conc. 31.4 g/dL (33.0-37.0); Mean Corpuscular Hgb 33.7 pg (27.0-31.0); Mean Corpuscular Volume 107.5 fL (81.0-99.0); Mean Platelet Volume 9.4 fL (7.4-10.4); Nucleated Red Blood Cells % 0 %; Platelet Count 305 10^3/uL (130-400); Red Blood Cell Count 2.67 10^6/uL (4.20-5.40); White Blood Cell Count 10.1 10^3/uL (4.8-10.8)
[2024-09-08 12:02] LABS: ALT (SGPT) 22 U/L (0-35); AST (SGOT) 23 U/L (14-36); Albumin 4.2 g/dl (3.5-5.0); Alkaline Phosphatase 72 U/L (38-126); Blood Urea Nitrogen 24 mg/dl (7-17); Calcium 9.7 mg/dl (8.4-10.2); Carbon Dioxide 21 mmol/L (22-30); Chloride 105 mmol/L (98-107); Glucose 206 mg/dl (70-99); Potassium 5.4 mmol/L (3.5-5.1); Sodium 142 mmol/L (135-145); Total Bilirubin 0.4 mg/dl (0.2-1.3); Total Protein 6.6 g/dl (6.3-8.2); eGFR 42.09
[2024-09-10 13:03] LABS: Iron 66 ug/dl (37-170)
[2024-09-10 13:12] LABS: Percent Saturation 21 % (20-50); Total Iron Binding Capacity 301 ug/dl (265-497)
[2024-09-10 13:50] LABS: Ferritin 17.1 ng/ml (11.1-264.0)
[2024-09-10 14:06] LABS: Vitamin B12 196 pg/ml (239-931)
[2024-09-10 15:21] LABS: Folate > 20.0 ng/ml (2.76-20)
== END ==
LOC: REG 09:49
PROVIDERS: ATTENDING PHYSICIAN Nurse Practitioner; FAMILY PHYSICIAN Internal Medicine
DX: D72.829 Elevated white blood cell count, unspecified (principal); I10 Essential (primary) hypertension; I48.0 Paroxysmal atrial fibrillation
CPT/HCPCS: 36415; 80053; 82607; 82728; 82746; 83540; 83550; 84443; 85025

== ENCOUNTER 2024-09-16 07:39 | Day surgery (SDC) | payer MEDICARE, BC, SELFPAY ==
[2024-09-16 08:33] LABS: Glucose - Point of Care 351 mg/dl (70-99)
== END 2024-09-16 10:40 | disposition home or self-care (01) ==
LOC: CATH 07:39
PROVIDERS: ATTENDING PHYSICIAN Internal Medicine Cardiovascular Disease; FAMILY PHYSICIAN Internal Medicine; OTHER PHYSICIAN Internal Medicine Cardiovascular Disease
DX: I48.91 Unspecified atrial fibrillation (principal); I08.3 Combined rheumatic disorders of mitral, aortic and tricuspid valves; E11.9 Type 2 diabetes mellitus without complications; I10 Essential (primary) hypertension; M06.9 Rheumatoid arthritis, unspecified
CPT/HCPCS: 93320; 93312; 93325; 82962; 92960; 93005

== ENCOUNTER → 2024-09-23 09:45 | Outpatient (REF) | payer MEDICARE, BC, SELFPAY | LOC: RAD 09:45 | PROVIDERS: ATTENDING PHYSICIAN Specialist; FAMILY PHYSICIAN Internal Medicine | DX: N28.1 Cyst of kidney, acquired (principal) | CPT/HCPCS: 74170; Q9967 ==

== ENCOUNTER 2024-11-19 22:06 | Inpatient (IN) | payer MEDICARE, BC, SELFPAY ==
[2024-11-19] VITALS (15 sets, daily range): BP systolic 93–120; BP diastolic 54–101; BMI 22.1; BMI 22.2
[2024-11-19 19:47] LABS: % Basophils 0.3 % (0-2); % Immature Granulocytes 0.5 % (0-0.5); % Monocytes 8.5 % (1.7-9.3); % Neutrophils 85.7 % (42.2-75.2); Absolute Immature Granulocytes 0.1 10^3/uL (0-0.05); Absolute Lymphocytes 0.7 10^3/uL (1.2-3.4); Absolute Monocytes 1.2 10^3/uL (0.1-0.6); Absolute Neutrophils 12.5 10^3/uL (1.4-6.5); Hematocrit 33.1 % (37.0-47.0); Hemoglobin 10.3 g/dL (12.0-16.0); Mean Corp Hgb Conc. 31.1 g/dL (33.0-37.0); Mean Corpuscular Hgb 29.5 pg (27.0-31.0); Mean Corpuscular Volume 94.8 fL (81.0-99.0); Mean Platelet Volume 9.9 fL (7.4-10.4); Nucleated Red Blood Cells % 0.1 %; Platelet Count 272 10^3/uL (130-400); Red Blood Cell Count 3.49 10^6/uL (4.20-5.40); Red Cell Dist. Width 15.9 % (11.5-14.5); White Blood Cell Count 14.5 10^3/uL (4.8-10.8)
--- NOTE | 2024-11-19 19:52 | ED.GENMED ---
History of Present Illness
General
Chief Complaint: Breathing Problem
Source: patient, records and ambulance crew
Exam Limitations: none
Time Seen by Provider: 11/19/24 19:40
Nursing documentation reviewed up to this point in time: agreed with
History of Present Illness
History of Present Illness:
79-year-old female with a past medical history of hypertension, hyperlipidemia, atrial fibrillation on Eliquis, diabetes prior history of lung cancer and breast cancer who presents to the emergency department via EMS for evaluation of shortness of
breath. Patient notably had recent diagnosis of A-fib a few months ago. She had a JENNIFER cardioversion 09/16/[address] Bruce. She has been maintained on Eliquis. She presents for shortness of breath that she says started this afternoon�she
says that she started to feel fatigued last night and was resting in bed most of the morning and in the early afternoon while she was resting in bed she had sudden onset of shortness of breath. She says that symptoms were constant all day to the
point that she called EMS to bring her to the hospital. She says she has had a mild cough with occasional production of clear phlegm. She denies any chest pain. She denies any swelling in the legs. She does note that she had some loose stools
today but no black or bloody stools, no vomiting, no abdominal pain. She denies similar symptoms in the past. According to EMS on their arrival her cardiogram showed rapid atrial fibrillation with heart rates as high as 150s. She was given 6 mg
of IV Cardizem and heart rate down to 70s�they believed that she converted to sinus rhythm however she appears to be in A-fib on the monitor here.
Past History
Past History
ED Past Medical History: Cancer (Lung CA with only radiation), HTN, Hypercholesterolemia, NIDDM and Other (RA, Essential tremors, Numbness arms and legs, UTI, )
ED Past Surgical History: Appendectomy, , Gynecological (Right lumpectomy), Orthopedic (Carpal tunnel), Tonsilectomy and Other (Bilateral cataracts, Polyps removed)
Social History
Tobacco: Former smoker
Alcohol: Occasional
Drug: None
Personal:
Living: with family
Review of Systems
Review of Systems
All Other Systems: ROS reviewed and negative except as documented in HPI and ROS
Constitutional: Reports fatigue; Denies fever or chills
EENT: Denies sore throat or runny nose
Respiratory: Reports cough and trouble breathing
Cardiac: Denies chest pain or palpitations
ABD/GI: Reports diarrhea; Denies abdominal pain, nausea, vomiting, bloody stools or black stools
: Denies flank pain
Musculoskeletal: Denies edema, neck pain or back pain
Neurological: Denies dizzy or headache
Phy Exam
Physical Exam
Physical Exam:
General: Awake, alert, oriented x3; somewhat anxious appearing
Head: Normocephalic, atraumatic
Eyes: Conjunctiva normal
Throat: Airway intact, handling secretions
Neck: Trachea midline, no JVD
Lungs: Patient is tachypneic, pulse ox acceptable on room air; breath sounds are somewhat diminished on the right but no focal wheezing or rales appreciated
Heart: Regular rate and irregularly irregular rhythm, no murmurs, gallops, or rubs appreciated
Abd: Soft, non distended, nontender
Rectal: Brown stool Hemoccult negative
Neuro: No gross deficits
Skin: Slightly pale; skin warm and dry
Extremities: No edema in extremities, equal pulses in all extremities
Scores
Heart Failure Risk
Heart Failure Risk Score: Not Applicable
Heart Score for Chest Pain Patients
STEMI patient?: Not applicable
Withdrawal Assessment of Alcohol
Withdrawal Assessment Completed?: Not applicable
Sepsis
Sepsis Screening
Sepsis Assessment: Sepsis
Sepsis Screen
Sepsis Screen: Sepsis
Date: 11/19/24
Time: 20:51
Course
Orders/Labs/Results
Orders:
Orders
11/19/24 19:30
Electrocardiogram (*1) Urgent
Reason for Study: Chest Pain
EKG- Treatment ONCE
11/19/24 19:35
Type And Crossmatch [Type+Screen] Urgent
Basic Metabolic Panel Urgent
Complete Blood Count/With Diff Urgent
PTT Urgent
Prothrombin Time Urgent
Troponin I Urgent
11/19/24 19:50
CR Chest Portable - 1 View Urgent
Comment:
Reason For Exam: sob
Reason Study Needs to be Portable: Unable to Transport
11/19/24 20:06
ABO2 Urgent
BBK Wristband Number:
Associate notified that ABO2 has been ordered: [id number]
Date: 11/19/24
Time: 19:45
Claims Vice President ID: [id number]
NT-proBNP Urgent
Urinalysis Reflex To Culture Urgent
11/19/24 20:09
0.9% Sodium Chloride 1000 ml [Nss] 1,000 ml IV BOLUS
11/19/24 20:10
Azithromycin 500 mg/250 ml [Zithromax Infusion] 500 mg in 250 ml IV NOW
CefTRIAXone [Rocephin] 1,000 mg IV NOW STA
11/19/24 20:24
Acetone [B-Hydroxybutyrate] Urgent
Lactate Level [Lactic Acid] Urgent
Potassium Stat
Venous Blood Gas Urgent
%Oxygen/Room Air: 95
Blood Culture Q30M
HONEY Source: Blood/Venous
Specimen Description:
11/19/24 20:28
Lactated Ringers [Lr] 1,000 ml IV BOLUS
11/19/24 20:45
Blood Culture Q30M
HONEY Source: Blood/Venous
Specimen Description:
11/19/24 20:46
Bedside Glucose- Treatment Q1H
IV Insert/Care/Rem.- Treatment PRN
Albuterol Nebs [Ventolin Nebules] 2.5 mg INH R NOW STA
Insulin Human Regular [Novolin R] 6 units IV NOW STA
Reg Insulin 100 Units/100 ml [Novolin R Insulin Infusion] 100 units in 100 ml IV NOW
Sodium Bicarbonate 50 meq IV NOW STA
11/19/24 20:49
COVID-19 Antigen Urgent
Source: Nasal Swab
Influenza A+B Rapid Molecular Urgent
HONEY Source: Nasal Swab
Specimen Description:
11/19/24 21:00
Basic Metabolic Panel Q2H
11/19/24 23:00
Basic Metabolic Panel Q2H
11/20/24 01:00
Basic Metabolic Panel Q2H
Abnormal Lab Results
11/19/24 11/19/24
19:35 20:24
WBC 14.5 H 10^3/uL
(4.8-10.8)
RBC 3.49 L 10^6/uL
(4.20-5.40)
Hgb 10.3 L g/dL
(12.0-16.0)
Hct 33.1 L %
(37.0-47.0)
MCHC 31.1 L g/dL
(33.0-37.0)
RDW 15.9 H %
(11.5-14.5)
Abs Immat Gran (auto) 0.1 H 10^3/uL
(0-0.05)
Absolute Neuts (auto) 12.5 H 10^3/uL
(1.4-6.5)
Absolute Lymphs (auto) 0.7 L 10^3/uL
(1.2-3.4)
Absolute Monos (auto) 1.2 H 10^3/uL
(0.1-0.6)
Neutrophils % 85.7 H %
(42.2-75.2)
Lymphocytes % 5.0 L %
(20.5-51.1)
PT 24.9 H Sec
(11.4-14.6)
VBG pH 7.21 L
(7.32-7.43)
VBG pCO2 28 L mmHg
(35-48)
VBG HCO3 11.2 L mmol/L
(22-27)
Sodium 133 L mmol/L
(135-145)
Potassium 7.4 H* mmol/L
(3.5-5.1)
Carbon Dioxide 9 L* mmol/L
(22-30)
BUN 23 H mg/dl
(7-17)
Creatinine 1.4 H mg/dL
(0.6-1.0)
Glucose 334 H mg/dl
(70-99)
Lactic Acid 10.3 H* mmol/L
(0.7-2.0)
11/19/24 19:35
Vital Signs
Initial and Last Documented VS:
Initial Vital Signs
Temp Pulse Resp BP Pulse Ox
37.6 C 75 30 120/74 95
11/19/24 19:32 11/19/24 19:32 11/19/24 19:32 11/19/24 19:32 11/19/24 19:32
Last Documented Vital Signs
Temp Pulse Resp BP Pulse Ox
37.6 C 78 28 106/77 96
11/19/24 19:32 11/19/24 20:15 11/19/24 20:15 11/19/24 20:15 11/19/24 19:44
MDM/Problems Addressed
Differential Diagnosis Includes:
Pneumonia, pneumothorax, CHF, symptomatic A-fib, symptomatic anemia, PE somewhat less likely with patient on anticoagulation
MDM/Problems Addressed:
79-year-old female presents for evaluation of shortness of breath started rather suddenly this afternoon in the setting of fatigue over the past day or so. Also reports mild associated cough. Apparently was in rapid atrial fibrillation per
EMS�rate controlled after only 6 mg of IV Cardizem. Vitals here are significant for tachypnea but no hypoxia. Normotensive. Heart rate in the 80s. Physical exam as above�does not appear to be overtly in heart failure. Although she is slightly
pale she is Hemoccult negative. Will place an IV check labs including a CBC CMP, coags, type and screen, troponin, proBNP. Will check stat chest x-ray and EKG. Monitor on telemetry reassess after the above.
Initial labs reviewed: CBC shows a leukocytosis to 14.5, stable anemia at 10.3. Acceptable platelets. Her CMP shows significant metabolic acidosis with a bicarb of 9 and elevated anion gap of 24. Creatinine 1.4 slightly increased from prior 1.3.
Glucose 334. Findings concerning for diabetic ketoacidosis. Unfortunately potassium hemolyzed to perform a stat redraw. Added VBG, beta hydroxybutyrate. Added lactate and blood cultures. Chest x-ray reviewed by me shows a right lower lobe
pneumonia which likely caused DKA. Will cover with antibiotics, fluids in progress, insulin infusion pending potassium. Plan for admission pending these things.
Redraw and potassium showed markedly elevated potassium 7.4; will give insulin bolus and start infusion. Can give albuterol and bicarb, calcium as well for hyperkalemia but would hold on Lokelma given that we are initiating insulin infusion. Her
lactate is also markedly elevated at 10.3. She was given 30 cc/kg IV fluid bolus and fluids will continue. She was already given antibiotics. Will admit to the ICU�case discussed with hospitalist for admission.
Chronic conditions affecting care:
Atrial fibrillation
*Radiology
Radiology exam reviewed: preliminary read by ED provider and radiology read reviewed
*Pulse Oximetry
Patient hypoxic: no
*EKG
Interpreted by ED Provider?: Yes
Heart Rate: 74
Rate: normal
Rhythm: a-fib
[place]: normal axis
Interval: normal interval
QRS Pattern: right bundle branch block
Ischemia: other (Nonspecific T wave abnormality)
*Critical Care Note
Total Time (30-74mins, 75-104mins- exclusive of procedures): Not Applicable
Data Reviewed
Review of Other/Old Records Reveals: Labs, Records and Operative Reports
Source: patient, records and ambulance crew
ED Attending Note
-
Portions of this chart may have been created with voice recognition software.� Occasional wrong word or��sound alike� substitutions may have occurred due to the inherent limitations of voice recognition software.
Discharge Plan
Departure
Patient Disposition: Admit
Date of Disposition: 11/19/24
Time of Disposition: 20:53
Admit to doctor: Jose
Presentation/result/management discussed w/ accepting MD/DO: Hospitalist
Discharge Problem:
Pneumonia, Diabetic ketoacidosis, Hyperkalemia, Sepsis
Prescriptions:
No Action
metformin 500 MG tablet
1,500 mg PO .DAILYINMORNING
Patient Comments:
3 tablets in AM
2 tablets in PM
glipizide 5 MG tablet
2.5 mg PO DAILY
metformin 500 mg Tablet
1,000 mg PO QPM
methotrexate sodium 2.5 mg Tablet
10 mg PO HERNANDEZ
simvastatin 20 mg Tablet
20 mg PO HS
alendronate [Fosamax] 70 mg Tablet
70 mg PO MO
Patient Comments:
once weekly every sunday morning
solifenacin 10 mg Tablet
10 mg PO DAILY
cholecalciferol (vitamin D3) [Vitamin D3] 25 mcg (1,000 unit) Tablet
25 mcg PO DAILY
polyethylene glycol 3350 [Miralax] 17 gram Powder In Packet
17 g PO DAILYPRN PRN (Reason: constipation)
therapeutic multivitamin Tablet
1 tab PO DAILY
leucovorin calcium 10 mg Tablet
10 mg PO HERNANDEZ
Patient Comments:
takes every sunday at bedtime
docusate sodium [Colace] 100 mg Capsule
100 mg PO DAILYPRN PRN (Reason: constipation)
Anoro Ellipta 62.5-25 mcg/actuation Blister With Device
1 inh INHALATION R DAILY
Eliquis 5 mg Tablet
5 mg PO BID Qty: 60 0RF
propranolol 60 mg Capsule,Extended Release 24 Hr
120 mg PO DAILY
acetaminophen 650 mg Tablet Extended Release
1,300 mg PO TID
gabapentin 100 mg Tablet
100 mg PO .DAILYINMORNING
gabapentin 100 mg Tablet
200 mg PO .DAILYINEVENING
pregabalin 75 mg Capsule
75 mg PO HS
melatonin 2.5 mg Tablet,Chewable
2.5 mg PO HS PRN (Reason: sleep)
Interventions
Interventions:
*Risk Screen - Suicide Last Done: 11/19/24 19:51
*General Assessment Last Done: 11/19/24 19:51
*Neglect/Abuse Screening Last Done: 11/19/24 19:51
*ED COVID-19 Vaccine History Last Done: 11/19/24 19:50
ED- Cardiac Assessment Last Done: 11/19/24 19:55
ED- Pulmonary Assessment Last Done: 11/19/24 19:55
Discharge Date and Time
Print Language: CYMRO
[2024-11-19 20:00] LABS: PT 24.9 Sec (11.4-14.6)
[2024-11-19 20:04] LABS: Blood Urea Nitrogen 23 mg/dl (7-17); Calcium 9.1 mg/dl (8.4-10.2); Chloride 100 mmol/L (98-107); Estimated Creatinine Clearance 29 ml/min; Glucose 334 mg/dl (70-99); Sodium 133 mmol/L (135-145); eGFR 38.51
[2024-11-19 20:05] LABS: Carbon Dioxide 9 mmol/L (22-30)
[2024-11-19 20:09] LABS: Troponin I 0.017 ng/ml
[2024-11-19] MEDS: NSS 1000 IV ×2 (20:28→22:57)
[2024-11-19 20:33] LABS: Venous Blood Gas B.E. -15.3 mmol/L (-4 to +4); Venous Blood Gas HCO3 11.2 mmol/L (22-27); Venous Blood Gas O2 Sat % 76.9 %; Venous Blood Gas pCO2 28 mmHg (35-48); Venous Blood Gas pH 7.21 (7.32-7.43); Venous Blood Gas pO2 49 mmHg (30-50)
[2024-11-19 20:35] LABS: NT-proBNP 12200 pg/ml
[2024-11-19 20:44] LABS: Potassium 7.4 mmol/L (3.5-5.1)
[2024-11-19 20:47] LABS: Lactic Acid 10.3 mmol/L (0.7-2.0)
[2024-11-19 20:59] LABS: B-Hydroxybutyrate 0.84 mmol/L (0.02-0.27)
[2024-11-19 21:11] LABS: Glucose - Point of Care 295 mg/dl (70-99)
[2024-11-19] MEDS: VENTOLIN NEBULES 2.5 MG INH (21:18)
[2024-11-19] MEDS: CALCIUM GLUCONATE 1000 MG IV (21:22)
[2024-11-19] MEDS: NOVOLIN R INSULIN INFUSION 100 IV (21:38)
[2024-11-19] MEDS: SODIUM BICARBONATE 50 MEQ IV (21:39)
[2024-11-19] MEDS: ROCEPHIN 1000 MG IV (22:06)
[2024-11-19 22:18] LABS: COVID-19 Antigen Negative (Negative)
[2024-11-19 22:22] LABS: Albumin 4.1 g/dl (3.5-5.0); Alkaline Phosphatase 137 U/L (38-126); Direct Bilirubin 0.7 mg/dl (0.0-0.4); Magnesium 1.4 mg/dl (1.6-2.3); Total Bilirubin 1.2 mg/dl (0.2-1.3); Total Protein 6.4 g/dl (6.3-8.2)
[2024-11-19 22:27] LABS: Glucose - Point of Care 289 mg/dl (70-99)
[2024-11-19 22:35] LABS: ALT (SGPT) 258 U/L (0-35); AST (SGOT) 566 U/L (14-36)
--- NOTE | 2024-11-19 22:45 | W.PN.UPDATE ---
Update Note
Progress Note Update
New hives, wheels, itchy rash tracking from the right wrist up to the right axillary area. Unclear what medication rash is from, will continue insulin infusion likely is not related to this medication, did receive Rocephin IV, did not receive
azithromycin due to prolonged QT. Unclear which medication could cause this itchy hive rash. Will give benadryl IV and pepcid IV, prn steroid cream.
[2024-11-19] MEDS: BENADRYL 25 MG IV (22:53)
--- NOTE | 2024-11-19 23:00 | PTCARENOTE ---
rec`d pt from ED at 2300. awake and alert. slowed speech. anxious. assessment as documented. hives on left and right arm and buttocks. stat Benadryl given.PIVs flushed and patent. insulin gtt continued. afib on monitor. 2L NC POX 98%. bed alarm on.
call barbosa in reach. safe environment maintained.
[2024-11-19] MEDS: PEPCID 20 MG IV (23:09)
--- NOTE | 2024-11-19 23:09 | HPS.HSE ---
Family Physician
-
Family Physician: Zach Wagner
Chief Complaint
-
SOB
History of Present Illness
Patient is a 79y F with PMH significant for A-Fib, hypertension and DM-II who presents to ED complaining of SOB. Patient states that she has been having increasing SOB for the past 1-2 days. She reports a few loose stools, mild cough. She
denies any chest pain, fevers / chills, abdominal pain or other focal / specific complaints. Patient presented to the ED for further evaluation and treatment.
Here she is noted to have marked lactic acidosis / multiple metabolic derangements.
Patient continues to complain of SOB. She is awake and alert and has no other symptoms / complaints at present.
Medical History
Past Medical History
Past Medical History: Reports Other
Additional Past Medical History:
Hypertension
Paroxysmal Atrial Fibrillation
DM-II
Hypothyroidism
Breast Cancer
Lung Cancer s/p XRT
Rheumatoid Arthritis
Skin Cancer
Past Surgical History: Reports Other
Additional Past Surgical History:
JENNIFER / D[facility] (09/2024)
T&A
Cataracts
Appendectomy
x 2
Carpal Tunnel Surgery
Lumpectomy
Right Knee Arthroscopy
Social History
Tobacco: Former Smoker (Quit smoking 2004. 40 pack years total use.)
Alcohol: None
Drug: None
Family History
Family History: Not pertinent
Allergies / Home Medications
Allergies reflects when Allergies were last updated in [facility].
Home Medications with original date entered in [facility]
Allergy/Medication List:
Allergies
Allergy/AdvReac Type Severity Reaction Status Date / Time
infliximab [From Remicade] Allergy Unknown Verified 11/19/24 19:53
Home Medications
metformin 500 mg tablet 1,500 mg PO .DAILYINMORNING 09/03/20
glipizide 5 mg tablet 2.5 mg PO DAILY 09/06/20
alendronate 70 mg tablet (Fosamax) 70 mg PO MO 10/16/22
cholecalciferol (vitamin D3) 25 mcg (1,000 unit) tablet (Vitamin D3) 25 mcg PO DAILY 10/16/22
metformin 500 mg tablet 1,000 mg PO QPM 10/16/22
methotrexate sodium 2.5 mg tablet 10 mg PO HERNANDEZ 10/16/22
simvastatin 20 mg tablet 20 mg PO HS 10/16/22
solifenacin 10 mg tablet 10 mg PO DAILY 10/16/22
docusate sodium 100 mg capsule (Colace) 100 mg PO DAILYPRN PRN constipation 08/04/24
leucovorin calcium 10 mg tablet 10 mg PO HERNANDEZ 08/04/24
polyethylene glycol 3350 17 gram oral powder packet (Miralax) 17 g PO DAILYPRN PRN constipation 08/04/24
therapeutic multivitamin 1 tab PO DAILY 08/04/24
umeclidinium 62.5 mcg-vilanterol 25 mcg/actuation powdr for inhalation (Anoro Ellipta) 1 inh inhalation R DAILY 08/04/24
apixaban 5 mg tablet (Eliquis) 5 mg PO BID #60 tabs 08/09/24
propranolol 60 mg capsule,24 hr,extended release 120 mg PO DAILY 09/16/24
acetaminophen 650 mg tablet,extended release 1,300 mg PO TID 11/19/24
gabapentin 100 mg tablet 100 mg PO .DAILYINMORNING 11/19/24
gabapentin 100 mg tablet 200 mg PO .DAILYINEVENING 11/19/24
melatonin 2.5 mg chewable tablet 2.5 mg PO HS PRN sleep 11/19/24
pregabalin 75 mg capsule 75 mg PO HS 11/19/24
Review of Systems
-
History Source: Patient
A 12 point ROS was completed and negative except as noted: Yes
Constitutional: Reports Fatigue; Denies Fever or Chills
EENT: Denies Sore Throat
Respiratory: Reports Cough and Trouble Breathing; Denies Hemoptysis
Cardiac: Denies Chest Pain, Diaphoresis, Palpitations or Syncope
Abdomen/GI: Reports Diarrhea; Denies Abdominal Pain, Nausea, Vomiting, Bloody Stools or Black Stools
: Denies Dysuria, Frequency or Flank Pain
Musculoskeletal: Denies Joint Pain or Edema
Neurological: Denies Dizzy or Headache
Psych: Denies Depression or Anxiety
Physical Exam
Vital Signs
Vital Signs
Temp Pulse Resp BP Pulse Ox
99.6 F 97 23 105/63 99
11/19/24 19:32 11/19/24 22:30 11/19/24 22:15 11/19/24 22:30 11/19/24 22:15
Physical Exam
General: Other (79y F in mild distress due to dyspnea.)
HEENT: Other (Dry MM. Pos JVD.)
Respiratory: Other (Rales at R base. No focal wheezes.)
Cardiac: S1/S2, Irregular Rhythm and Tachycardia; No Murmur
GI: Soft, Non Distended, Normal Bowel Sounds and Other (Pos tenderness in the LLQ. No rebound / guarding. Pos BS.)
Musculoskeletal: No Clubbing, No Cyanosis and Other (Trace pedal edema bilaterally.)
Neuro: AO x 3 and Nonfocal/grossly intact
Laboratory Results
-
11/19/24 19:35
11/19/24 23:00
Laboratory Results
PT 24.9 Sec (11.4-14.6) H 11/19/24 19:35
INR 2.20 11/19/24 19:35
APTT 34.0 Sec (23.4-35.0) 11/19/24 19:35
Lactic Acid 10.3 mmol/L (0.7-2.0) H* 11/19/24 20:24
Total Bilirubin 1.2 mg/dl (0.2-1.3) 11/19/24 20:24
AST 566 U/L (14-36) H* 11/19/24 20:24
ALT 258 U/L (0-35) H 11/19/24 20:24
Alkaline Phosphatase 137 U/L (38-126) H 11/19/24 20:24
Troponin I 0.017 ng/ml 11/19/24 19:35
Impression/Plan
-
A/P: Patient is a 79y F with PMH significant for A-Fib, hypertension, DM-II and hypothyroidism who presents to ED complaining of SOB.
RLL Pneumonia
Influenza A Positive
Sepsis secondary to the above
- Admit for further evaluation and treatment.
- Recent SOB, mild cough and CXR / exam suggest R base process.
- Flu A positive after flu assay added on.
- Begin Tamiflu - renally dosed.
- Continue abx with Zosyn for now for multi-organ coverage (see below).
- Follow proper precautions.
- Supportive care including IVFs, etc.
- Follow for clinical improvement.
Anion Gap Metabolic Acidosis
Lactic Acidosis
Hyperkalemia
Hypomagnesemia
- Primarily lactic acidosis (lactate = 10.3) with perhaps mild component of DKA (see below).
- Lactic acidosis secondary to sepsis +/- metformin +/- other.
- IVF support for now and follow serial lactate until improved.
- Not hypotensive at present - follow BP and add pressor support if needed to maintain perfusion.
- Treat underlying infectious process(es).
- Follow labs / lytes and adjust IVF replacement as needed.
- Hyperkalemia should improve with correction of acidosis / IV insulin.
DKA / DM-II
- Glucose elevated and B-OH mildly elevated. Suspect acidosis primarily due to lactic acidosis as noted above.
- Insulin infusion for now for glucose control / gap correction.
- Follow glucose, serial labs, etc and adjust treatment as needed.
Abnormal LFTs
Possible Cholecystitis
- LFTs with transaminitis and mildly elevated alk phos / bili.
- CT shows GB wall thickening without evidence of stones.
- US in the AM for further evaluation.
- Continue Zosyn as noted above.
- Surgery evaluation if US confirms cholecystitis.
Paroxysmal Atrial Fibrillation
- Stable. Rates fairly well-controlled at present.
- Holding PO meds acutely.
- Monitor on telemetry.
- Hold Eliquis acutely.
Possible CHF
- Patient with prominent neck veins, markedly elevated ProBNP, etc
- Soft BP and markedly elevated lactic acid level necessitating volume replacement at present.
- Follow clinically for response to IVFs.
- Check Echo in AM.
Normocytic Anemia
- Patient is pale appearing. Hgb is near baseline - but follow for changes with volume replacement.
- Check iron, B12, folate, etc.
- Follow H&H for changes.
DVT prophylaxis: Subcut Heparin
Code Status: Full
[2024-11-19] MEDS: ZOSYN 50 IV (23:12)
[2024-11-19] MEDS: MAGNESIUM SULFATE 50 IV (23:12)
[2024-11-19 23:17] LABS: Glucose - Point of Care 263 mg/dl (70-99)
[2024-11-19] MEDS: CLOBETASOL PROPIONATE 0.05% OINTMENT 1 APPLIC TOPICAL (23:20)
[2024-11-19] MEDS: HEPARIN 5000 UNITS SC (23:25)
[2024-11-19] MEDS: TAMIFLU 30 MG PO (23:25)
[2024-11-20] VITALS (33 sets, daily range): BP systolic 83–138; BP diastolic 54–95; PULSE 100–131; O2SAT 96; BMI 22.2; BMI 22.4
[2024-11-20 00:17] LABS: Glucose - Point of Care 228 mg/dl (70-99)
[2024-11-20] MEDS: D5/0.45%NACL 1000 IV ×3 (00:36→14:51)
[2024-11-20 00:54] LABS: Blood Urea Nitrogen 27 mg/dl (7-17); Calcium 8.4 mg/dl (8.4-10.2); Carbon Dioxide 15 mmol/L (22-30); Chloride 107 mmol/L (98-107); Creatine Phosphokinase 76 U/L (30-135); Estimated Creatinine Clearance 29 ml/min; Glucose 219 mg/dl (70-99); Iron 25 ug/dl (37-170); Potassium 4.2 mmol/L (3.5-5.1); Sodium 136 mmol/L (135-145); eGFR 38.51
[2024-11-20 00:56] LABS: Lactic Acid 6.6 mmol/L (0.7-2.0)
[2024-11-20 01:00] LABS: Troponin I 0.037 ng/ml
[2024-11-20 01:03] LABS: Percent Saturation 7 % (20-50); Total Iron Binding Capacity 323 ug/dl (265-497)
[2024-11-20 01:19] LABS: Glucose - Point of Care 252 mg/dl (70-99)
[2024-11-20 01:28] LABS: TSH Reflex To Free T4 0.52 uIU/ml (0.47-4.68)
--- NOTE | 2024-11-20 01:30 | W.PN.SEPSIS ---
Sepsis
Vital Signs
Temp Pulse Resp BP Pulse Ox
98.3 F 88 16 120/78 95
11/20/24 01:00 11/20/24 01:00 11/20/24 01:00 11/20/24 01:00 11/20/24 01:00
Physical Exam
Physical Exam:
A focused exam was performed after fluid resuscitation.
Capillary Refill
Bilateral Upper Extremity:
Eli Time: Less than 3 sec
Bilateral Lower Extremity:
Eli Time: Less than 3 sec
Pulse Evaluation
Bilateral Radial:
Pulse Evaluation: Present
Bilateral Dorsalis Pedis:
Pulse Evaluation: Present
[2024-11-20 02:03] LABS: Folate > 20.0 ng/ml (2.76-20); Vitamin B12 944 pg/ml (239-931)
[2024-11-20 02:20] LABS: Glucose - Point of Care 245 mg/dl (70-99)
[2024-11-20 03:27] LABS: Glucose - Point of Care 257 mg/dl (70-99)
[2024-11-20 04:25] LABS: Glucose - Point of Care 250 mg/dl (70-99)
[2024-11-20 04:28] LABS: Venous Blood Gas HCO3 18.6 mmol/L (22-27); Venous Blood Gas pCO2 37 mmHg (35-48); Venous Blood Gas pH 7.31 (7.32-7.43); Venous Blood Gas pO2 138 mmHg (30-50)
[2024-11-20 04:41] LABS: INR 3.52; PT 35.5 Sec (11.4-14.6)
[2024-11-20 04:42] LABS: Lactic Acid 3.5 mmol/L (0.7-2.0)
[2024-11-20 04:50] LABS: % Basophils 0.1 % (0-2); % Immature Granulocytes 0.5 % (0-0.5); % Lymphocytes 4.2 % (20.5-51.1); % Monocytes 3.1 % (1.7-9.3); % Neutrophils 92.1 % (42.2-75.2); Absolute Immature Granulocytes 0.1 10^3/uL (0-0.05); Absolute Lymphocytes 0.4 10^3/uL (1.2-3.4); Absolute Monocytes 0.3 10^3/uL (0.1-0.6); Absolute Neutrophils 8.7 10^3/uL (1.4-6.5); Hematocrit 24.2 % (37.0-47.0); Hemoglobin 7.8 g/dL (12.0-16.0); Mean Corp Hgb Conc. 32.2 g/dL (33.0-37.0); Mean Corpuscular Hgb 29.7 pg (27.0-31.0); Mean Platelet Volume 9.6 fL (7.4-10.4); Nucleated Red Blood Cells % 0 %; Platelet Count 165 10^3/uL (130-400); Red Blood Cell Count 2.63 10^6/uL (4.20-5.40); Red Cell Dist. Width 15.5 % (11.5-14.5); White Blood Cell Count 9.4 10^3/uL (4.8-10.8)
[2024-11-20 04:55] LABS: Blood Urea Nitrogen 29 mg/dl (7-17); Calcium 8.4 mg/dl (8.4-10.2); Carbon Dioxide 17 mmol/L (22-30); Chloride 106 mmol/L (98-107); Estimated Creatinine Clearance 29 ml/min; Glucose 224 mg/dl (70-99); Potassium 4.4 mmol/L (3.5-5.1); Sodium 138 mmol/L (135-145); eGFR 38.51
[2024-11-20 04:57] LABS: Albumin 3.5 g/dl (3.5-5.0); Alkaline Phosphatase 97 U/L (38-126); Direct Bilirubin 0.3 mg/dl (0.0-0.4); Magnesium 1.9 mg/dl (1.6-2.3); Phosphorus 3.3 mg/dl (2.5-4.5); Total Bilirubin 0.6 mg/dl (0.2-1.3); Total Protein 5.4 g/dl (6.3-8.2)
[2024-11-20 05:08] LABS: ALT (SGPT) 1208 U/L (0-35)
[2024-11-20 05:11] LABS: Troponin I 0.042 ng/ml
[2024-11-20 05:17] LABS: AST (SGOT) 2892 U/L (14-36)
[2024-11-20 05:22] LABS: Hemoglobin 7.8 g/dL (12.0-16.0)
[2024-11-20 05:27] LABS: Glucose - Point of Care 220 mg/dl (70-99)
[2024-11-20 06:13] LABS: Glucose - Point of Care 219 mg/dl (70-99)
[2024-11-20] MEDS: ZOSYN 50 IV (06:21)
[2024-11-20 07:14] LABS: Glucose - Point of Care 216 mg/dl (70-99)
[2024-11-20] MEDS: TAMIFLU 30 MG PO (07:31)
[2024-11-20] MEDS: HEPARIN 5000 UNITS SC ×2 (07:31→16:37)
[2024-11-20] MEDS: NSS (PRESERVATIVE FREE) 10 ML IV (07:31)
[2024-11-20] MEDS: PROTONIX IV 40 MG IV (07:31)
--- NOTE | 2024-11-20 07:31 | CON.INTV ---
Consultation
Consultation Request
Date/Time Consultation Requested: 11/20/2024-7 AM
Date/Time Consultation Performed: 11/20/2024-7:30 AM
Requesting Provider: Hospitalist
Performing Provider: Dr. Gomez
Reason for Consultation: DKA/critical care management
Medical History
-
Chief Complaint: Shortness of breath/DKA
History of Present Illness:
79-year-old former smoking female with a history of hypertension, diabetes, hypothyroid, breast cancer, lung cancer status post XRT, rheumatoid arthritis, skin cancer and PAF presented with increasing shortness of breath found to have influenza and
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 Patient is somewhat lethargic and slow to respond to questioning, however, answers questions appropriately. She has some shortness of breath, chest congestion,
productive cough of discolored sputum, no abdominal pain, nausea, vomiting, weakness or lower extremity swelling.
Past Medical History
Past Medical History: None (Hypothyroid. Hypertension. PAF. Breast cancer. Lung cancer status post XRT. Former smoker. Rheumatoid Tritus. Skin cancer. Tonsillectomy. Cataract. Appendectomy. x 2. Carpal tunnel. Lumpectomy.
Right knee arthroplasty.)
Social History
Tobacco: Former Smoker ([id number] quit 2003)
Alcohol: None
Drug: None
Personal:
Living: With Family
Occupational Exposures: No known asbestos exposure
Environmental Exposures: No known tuberculosis exposure
Family History
Family History: Reviewed & Not Pertinent
Allergies / Home Medications
Allergies
Allergy/AdvReac Type Severity Reaction Status Date / Time
infliximab [From Remicade] Allergy Unknown Verified 11/19/24 19:53
Home Medications
�Medication �Instructions �Recorded �Confirmed �Last Taken �Type
metformin 500 mg tablet 1,500 mg PO .DAILYINMORNING 09/03/20 11/19/24 09/15/24 08:00 History
glipizide 5 mg tablet 2.5 mg PO DAILY 09/06/20 11/19/24 09/15/24 08:00 History
alendronate 70 mg tablet (Fosamax) 70 mg PO MO 10/16/22 11/19/24 09/15/24 08:00 History
cholecalciferol (vitamin D3) 25 25 mcg PO DAILY 10/16/22 11/19/24 09/16/24 06:45 History
mcg (1,000 unit) tablet (Vitamin
D3)
metformin 500 mg tablet 1,000 mg PO QPM 10/16/22 11/19/24 09/15/24 17:00 History
methotrexate sodium 2.5 mg tablet 10 mg PO HERNANDEZ 10/16/22 11/19/24 09/14/24 09:00 History
simvastatin 20 mg tablet 20 mg PO HS 10/16/22 11/19/24 09/15/24 21:00 History
solifenacin 10 mg tablet 10 mg PO DAILY 10/16/22 11/19/24 09/16/24 06:45 History
docusate sodium 100 mg capsule 100 mg PO DAILYPRN PRN constipation 08/04/24 11/19/24 09/13/24 21:00 History
(Colace)
leucovorin calcium 10 mg tablet 10 mg PO HERNANDEZ 08/04/24 11/19/24 09/14/24 21:00 History
polyethylene glycol 3350 17 gram 17 g PO DAILYPRN PRN constipation 08/04/24 11/19/24 Unknown History
oral powder packet (Miralax)
therapeutic multivitamin 1 tab PO DAILY 08/04/24 11/19/24 09/15/24 08:00 History
umeclidinium 62.5 mcg-vilanterol 1 inh inhalation R DAILY 08/04/24 11/19/24 09/15/24 08:00 History
25 mcg/actuation powdr for
inhalation (Anoro Ellipta)
apixaban 5 mg tablet (Eliquis) 5 mg PO BID #60 tabs 08/09/24 11/19/24 09/16/24 06:45 Rx
propranolol 60 mg capsule,24 120 mg PO DAILY 09/16/24 11/19/24 09/16/24 06:45 History
hr,extended release
acetaminophen 650 mg 1,300 mg PO TID 11/19/24 11/19/24 Unknown History
tablet,extended release
gabapentin 100 mg tablet 100 mg PO .DAILYINMORNING 11/19/24 11/19/24 Unknown History
gabapentin 100 mg tablet 200 mg PO .DAILYINEVENING 11/19/24 11/19/24 Unknown History
melatonin 2.5 mg chewable tablet 2.5 mg PO HS PRN sleep 11/19/24 11/19/24 Unknown History
pregabalin 75 mg capsule 75 mg PO HS 11/19/24 11/19/24 Unknown History
Review of Systems
-
Unable to Obtain full review of systems at this time due to: Other (Per HPI)
Vitals / Labs / Diagnostic Testing
Vital Signs
Temp Pulse Resp BP Pulse Ox
98.3 F 88 16 120/78 95
11/20/24 03:16 11/20/24 05:45 11/20/24 05:45 11/20/24 05:30 11/20/24 05:45
Lab Data
11/20/24 05:05
Laboratory Results
11/19/24 11/20/24
19:35 04:12
PT 24.9 H 35.5 H
INR 2.20 3.52
APTT 34.0
Microbiology
11/19/24 22:01 Nasal Swab Influenza Types A & B (ABBEY) - Final
Influenza A Positive, NAAT
Diagnostic Testing:
Physical Exam
-
Exam:
Well-nourished and well-developed in no apparent distress
HEENT-atraumatic, normocephalic
Neck-supple, no JVD, no bruit
Heart-regular rate and rhythm-no murmurs, rubs or gallops
Chest with diminished breath sounds, crackles, forced expiratory wheezing and some rhonchi
Back without tenderness
Abdomen-soft, nontender, nondistended, no hepatosplenomegaly
Extremities-no cyanosis, clubbing, edema and good peripheral pulses
Integument-intact, no rashes, lesions or ecchymosis
Neurology-alert and oriented, nonfocal motor and sensory exam
Assessment
-
79-year-old former smoking female with a history of hypertension, diabetes, hypothyroid, breast cancer, lung cancer status post XRT, rheumatoid arthritis, skin cancer and PAF presented with increasing shortness of breath found to have influenza and
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
Ptcdbdyrh-[id number]-right lower lobe
Influenza A+
Sepsis
Metabolic acidosis
Lactic acidosis
Hyperkalemia
Hypomagnesemia
DKA
Transaminitis
Hyperkalemia
Hyperglycemia
PAF-on chronic Eliquis
CHF-preserved EF
Anemia-normocytic
Leukocytosis
Elevated troponin
Conditions present prior to admission:
Hypothyroid.
Hypertension.
PAF.
Breast cancer.
Lung cancer-left upper lobe adenocarcinoma status post XRT.
Former smoker.
Asthma-mild intermittent
Rheumatoid arthritis
Osteopenia
Fatty liver
History of anal fissure-fistulotomy
Essential tremor-
Diverticulosis
Adrenal adenoma
Skin cancer. Tonsillectomy. Cataract. Appendectomy. x 2. Carpal tunnel. Lumpectomy-carcinoma in situ 1997. Right knee arthroplasty. Trigger finger.
Plan
Admit patient to medical intensive care unit for persistent hypotension despite fluid resuscitation requiring pressors
Supplement oxygen as needed
High flow oxygen if needed
BiPAP if necessary
Intubate and mechanically ventilate if necessary
Aspiration precautions
Nebulizers if needed
Obtain cultures
Empiric antibiotics-initially covered for cholecystitis and then this is less likely now covered for pneumonia-ceftriaxone and doxycycline
Monitor leukocytosis
Fluid resuscitation with 30 mL/kg crystalloid-preferably lactated ringer-(less MODESTA) with subsequent boluses as needed
Monitor lactate
Follow CVP if possible
Attempt noninvasive bedside tissue perfusion evaluation to see if fluid bolus responsive
Measure pulse pressure and stroke volume variation if patient on ventilator, passively breathing without arrhythmia and with temporary large tidal volume ventilation and if > 13% then likely fluid bolus responsive
If patient active then consider measuring bedside leg lift for 3 minutes and if cardiac output increases or if there is a rise of 2-4 on end-tidal CO2 then fluid bolus
If bedside ultrasound available then measure IVC diameter variation to evaluate for fluid bolus responsiveness
Begin pressors as needed for MAP goal of 65-Norepinephrine first, then Vasopressin and consider Angiotensin II if continues to be hypotensive
Consider methylene blue if available-specific inhibitor of induced nitric oxide synthase iNOS and its downstream enzyme soluble guanylate cyclase-noninferiority study shown to reduce time to vasopressor discontinuation, decreased ICU length of stay,
hospital stay but no change in mortality-published Critical Care 12/18/2022
If persistently hypotensive then consider checking random cortisol-hydrocortisone if random less than 3, if 3-15 then consider ACTH stimulation test
If persistently hyperthermic then correcting hyperthermia can decrease pressor requirements, increased chances of reversal of shock and decrease mortality
Monitor abdominal exam
Ultrasound of the abdomen without evidence for acute cholecystitis
Change Zosyn to ceftriaxone and doxycycline
Replace electrolytes
Monitor renal function
Gentle diuresis
Monitor renal function, electrolytes, intake/output, lower extremity edema and weight
Replace electrolytes as needed
Follow chest x-ray
Monitor hemoglobin
Transfuse as needed
Trend transaminitis
GI consult
Trend troponin
Echocardiogram
Cardiology consultation
Monitor blood sugar
Insulin drip
Replace electrolytes
Diabetic nurse practitioner consultation
A1c if not obtained in the last 3 months
Patient was last seen in the pulmonary office by Dr. Solo 07/12/2023-told to follow-up in 1 year-will ask to follow-up sooner
DVT prophylaxis
Early nutrition if possible
Early mobilization/bedside range of motion
Critical care statement: A total of65 minutes of critical care time was provided for this patient today. This includes management of unstable vital signs, evaluation of the patient at bedside, reviewing the patient's pertinent medical records
including radiographs, insulin drip management, pressor management, microbiology, laboratory evaluations, and discussion with primary team, consultants, pharmacy, nutrition, physical therapy, case management, charge nurse, critical care nursing,
and respiratory therapy.
Diagnostic data:
Chest x-ray 08/04/2024-no evidence for acute intrathoracic abnormalities
CT abdomen 09/23/24-3.2 cm solid partially cystic upper pole left kidney mass suspicious for left renal cell carcinoma, small right pleural effusion, mild interstitial cardiogenic edema
CT abdomen and pelvis 11/19/2024-right lower lobe pneumonia, prominent gallbladder wall thickening with some sludge but no calcified gallstones
Abdominal ultrasound 11/20/2024-no evidence for cholelithiasis, gallbladder wall thickening or biliary tract dilation
CT chest 03/23/23: left upper lobe scar subpleural, 5 cm report, no change compared to prior imaging. Minimal basilar scar and apical scar. No obvious adenopathy�������
Abd CT 04/20/22: lung bases are clear�������
CT chest 02/24/22: slight decrease in left upper lobe consolidation, likely radiation changes. No evidence of recurrent dissease. Mucous plugging left upper lobe, bronchiectasis 7 mm. There is also 8 mm right upper lobe scar image #10. No
adenopathy�������
CXR 04/17/21: no acute findings�������
CT chest 02/22/21: 4 cm left upper lobe lesion, appears to be new, superior and anterior to original 1.3 cm lesion image #26, stable. 8 mm right upper lobe lesion image #13, stable, likely subpleural scar (my rev). No adenopathy. 1.9 cm left renal
lesion, incompletely imaged, per report�������
CT chest 11/23/20: left upper lobe nodule image #8 (1.1 cm), grossly stable. Left upper lobe nodule image #24 (5.6 mm), increased from 4 mm with atypical appearance. 9 mm right upper lobe nodule Ms. #8, stable. no significant adenopathy.�������PET
scan 08/16/20: left upper lobe nodule, max SUV 6.0. No other PET activity noted�������
CT chest 07/19/20: 1.1 cm left apical nodule, increased when compared to 07/10/19 from 8 mm. 1 cm subpleural nodule right lung apical, decrease in size when compared to prior study.������
�CT chest 07/10/19: 1.7 cm right apical nodule, left apical 8mm nodule. Per report, unchanged. Per my review, there may be slight increase in size when compared to 2018 in 2017 of left upper lobe nodule. It does appear to be near a terminal
bronchiole. Difficult to determine whether this may be mucous plugging/retention.�������
CXR 03/19/19: right upper lobe nodule, appears chronic appearing per chest x-ray�������
CT chest 06/17/2018 reveals stable right upper lobe nodule 1.8cm. It is a mixed fluid/soft tissue density suggesting a benign process possibly hamartoma. This is unchanged compared to CT chest from 09/17/2017. It is new when compared to chest x-ray
from 2008.
CT chest 12/17/17 reveals 1.9 cm right upper lobe nodule, of which characterizations suggest fluid/fat (hamartoma?).
PET scan 10/05/17 reveals no evidence of PET avidity. CT chest 09/17/17 reveals pleural-based lobulated nodule measuring 1.4 cm, image #10 in the right upper lobe. Density of the lesion suggests fat density. No obvious mediastinal or hilar
adenopathy noted. There is evidence of right renal cyst, right nonobstructing renal stone 6 mm.
Chest x-ray from 09/10/17 reveals right upper lobe nodule. Abdominal CT scan from 07/03/17 reveals clear lung bases. She has renal stones which are nonobstructing. She may have some fullness in the left adrenal gland per report (hyperplasia versus
adenoma).
Chest x-ray from 02/03/13 reveals right middle lobe infiltrate. Unclear whether there may been a right upper lobe nodule behind the rib at that time. Not reported.
Echocardiogram 11/20/2024-EF 55-60%, mild aortic stenosis
PFT 07/12/23: FVC 2.98/109%, FEV1 1.93/95%, ratio 65. TLC 4.40/89%, DLCO 12.85/63%. When compared to 2019, this is stable
Data Reviewed
-
EKG: Report reviewed by me
Radiology: Report reviewed by me
CT Scan: Report reviewed by me
Ultrasound: Report reviewed by me
Medical Tests (Nuc Med, Echo etc): Report reviewed by me
Labs: Labs reviewed by me
Old Records: Reviewed
Critical Care Time (in minutes): 65
--- NOTE | 2024-11-20 07:55 | PTCARENOTE ---
Rec`d pt from previous RN 07:15. Pt drowsy but arousable, AOx2-3 assessment as documented. hives resolved. Essential tremors noted. PIVs flushed and patent. insulin gtt continued. afib on monitor. 2L NC POX 98%. bed alarm on. call barbosa in reach.
safe environment maintained.
[2024-11-20 08:09] LABS: Glucose - Point of Care 180 mg/dl (70-99)
[2024-11-20 08:33] LABS: Potassium 4.1 mmol/L (3.5-5.1)
[2024-11-20 08:44] LABS: Acetaminophen < 10 ug/ml (10-30); Blood Urea Nitrogen 30 mg/dl (7-17); Calcium 8.2 mg/dl (8.4-10.2); Carbon Dioxide 19 mmol/L (22-30); Chloride 108 mmol/L (98-107); Estimated Creatinine Clearance 27 ml/min; Glucose 171 mg/dl (70-99); Potassium 4.1 mmol/L (3.5-5.1); Sodium 138 mmol/L (135-145); eGFR 35.45
[2024-11-20 09:43] LABS: Glycohemoglobin (HgbA1c) 7.5 % (4.0-5.6)
[2024-11-20 10:13] LABS: Glucose - Point of Care 91 mg/dl (70-99)
[2024-11-20 11:12] LABS: Glucose - Point of Care 78 mg/dl (70-99)
--- NOTE | 2024-11-20 11:16 | W.PN.HOSP.TC ---
Addendum entered and electronically signed by Neha Nolen MD 11/20/24 16:21:
I saw and evaluated the patient independently. I reviewed the resident�s note and agree with findings and plan as documented by Dr. Wong.
GENERAL: chronically frail appearing female in no apparent distress
HEENT: NC/AT-- O2 NC
HEART: irreg irreg tachy
LUNGS : clear to auscultation bilaterally
ABDOM: soft, nontender, nondistended, + bowel sounds
EXT: no cyanosis, clubbing, or edema
NEUROLOGIC: moves all extremities, unsteady gait, essential tremor
Sepsis--no pressor requirements--s/p IVF bolus for episode of hypotension--likely source is CAP secondary from influenza A positivity--less likely acute cholecystitis (US neg)--blakely culture and cont rocephin/doxy--cont tamiflu--consider ID consult
Anion gap metabolic acidosis--multiple contributors--DKA (does have positive ketones), lactic acidosis from sepsis/metformin, diarrhea with bicarbonate loss--cont insulin drip--AGAP 12 (closed x 1)--cont until 2 gaps closed--did receive bicarb
bolus, not on drip, lactates 10, 6, 3, 2---cont rocephin/z-max--apprec DM [employer]--hold metformin--salicylates negative
transaminitis--likely from sepsis (elevated AST/ALT - 2892/1208)--episodes of hypotension BUT not shock --consult GI--US negative--hold eliquis--hold tylenol--level negative
Permanent A-fib--rates not controlled--pt is s/p CV 09/16/24--Eliquis held for liver function--troponin elevation given illness not significant--likely nonischemic myocardial injury
Hyperkalemia/hypomagnesemia/ pseudohyponatremia--noted, treat as needed
anemia likely of chronic disease, exacerbated by IVF and dilutional drop--appears to have some element of iron deficiency--transfuse if HGB < 7
MODESTA on CKD stage 3 presumed--Creatinine 1.4 on arrival, baseline 1.0--Avoid nephrotoxic agents, follow BMP--renal dose meds
Type 2 Qzy-ebqwveb-jpquwbizp diabetes mellitus---Hold metformin given lactic acidosis--Basal bolus/sliding scale insulin as DKA resolves
Essential Hypertension--Home antihypertensives held while septic
Hyperlipidemia--Hold statin given transaminitis
DVT prophy--Subcu heparin
CODE STATUS--Full code
Total Critical Care Time 40 minutes. I was immediately available to the patient and staff. I personally examined, reviewed labs, diagnostic images/reports, interpretations, treatment plans, discussed patient care with other providers and family
or caregivers (if patient is unable to make decisions), entered orders as appropriate and documented the medical record.
Original Note:
Today's Communication/Plan
-
Continue antibiotics
Trend troponins and lactate
Monitor H&H, and BMP
Comfort insulin drip to subcu as anion gap closes
Assessment / Plan
Assessment / Plan
81-year-old female with recent history of A-fib on Eliquis, hypertension, diabetes mellitus type 2, hyperlipidemia, history of lung and breast cancers, who presents with sepsis, anion gap metabolic acidosis and DKA.
Sepsis:
Respiratory source (flu A infection, right lower lobe pneumonia), versus possible acute cholecystitis versus urinary versus other source.
Leukocytosis plus tachypnea on presentation
-Continue Tamiflu, renal dosing
-Was on Zosyn, converted to ceftriaxone and doxycycline
-Continue IV fluids -dextrose half-normal saline
-Urinalysis/urine culture
-Blood cultures pending
Anion gap metabolic acidosis:
Multifactorial: DKA, lactic acidosis (secondary to sepsis versus metformin use), recent loose stools -possible diarrhea bicarb loss
Improving, status post bicarb.
-Continue to follow
-Trend lactate
Diabetic ketoacidosis:
Likely precipitated by flu/pneumonia
Improving. Convert to subcu insulin with close of gap. Q4 BMP
-Diabetic diet
-Diabetes management by nurse practitioner consult
Paroxysmal A-fib:
Currently rate controlled
- Continue to monitor
-Eliquis held for liver function
Transaminitis:
Significantly elevated AST/ALT - 2892/1208
Alk phos mild elevation, now resolved
-Patient is on 3900 mg Tylenol daily. Tylenol level <10
-Abd US showed no evidence of cholelithiasis, gallbladder wall thickening or biliary tract dilatation
-Will check BAL
Elevated troponin
Denies chest pain/dyspnea
Possibly nonischemic myocardial injury secondary to sepsis
-Trend trops
Electrolyte abnormality:
-Hyperkalemia resolved with insulin
-Magnesium repleted
-Low sodium due to pseudohyponatremia, resolved
Normocytic anemia:
Hemoglobin dropped with fluids to 7.8
-Will continue to monitor H&H
MODESTA on CKD:
-Creatinine 1.4 on arrival, baseline 1.0
-Avoid nephrotoxic agents, follow BMP
Jsd-wvigpuf-dxlqowfwm diabetes mellitus:
-Hold metformin given lactic acidosis
-Basal bolus/sliding scale insulin as DKA resolves
Hypertension:
-Home antihypertensives held while septic
Hyperlipidemia:
-Hold statin given transaminitis
DVT prophylaxis: Subcu heparin
CODE STATUS: Full code
Anticipated Discharge: > 48 hours
Subjective/Interval History
-
Date of Service: November 20, 2024
Pt reports feeling ill, but somewhat improved from when admitted.
Objective Data
-
Labs:
Laboratory Results
11/20/24 11/20/24 11/20/24
00:22 04:12 04:12
WBC 9.4
Hgb 7.8 L D
Hct 24.2 L
Plt Count 165 D
PT 35.5 H
INR 3.52
Sodium 136 138
Potassium 4.2 D Cancelled 4.4
Chloride 107
Carbon Dioxide 15 L
BUN 27 H
Creatinine 1.4 H
Glucose 219 H
Calcium 8.4
Total Bilirubin
AST
ALT
Alkaline Phosphatase
11/20/24 11/20/24 11/20/24
04:12 05:05 07:43
WBC
Hgb 7.8 L
Hct
Plt Count
PT
INR
Sodium 138
Potassium Cancelled 4.1
Chloride 106
Carbon Dioxide 17 L
BUN 29 H
Creatinine 1.4 H
Glucose 224 H
Calcium 8.4
Total Bilirubin 0.6
AST 2892 H*
ALT 1208 H*
Alkaline Phosphatase 97
11/20/24 11/20/24 11/20/24
07:43 11:01 14:00
WBC
Hgb
Hct
Plt Count
PT
INR
Sodium Pending
Potassium 4.1 Pending Pending
Chloride 108 H Pending
Carbon Dioxide 19 L Pending
BUN 30 H Pending
Creatinine 1.5 H Pending
Glucose 171 H Pending
Calcium 8.2 L Pending
Total Bilirubin
AST
ALT
Alkaline Phosphatase
11/20/24 11/20/24
16:00 20:00
WBC
Hgb
Hct
Plt Count
PT
INR
Sodium Pending Pending
Potassium Pending Pending
Chloride Pending Pending
Carbon Dioxide Pending Pending
BUN Pending Pending
Creatinine Pending Pending
Glucose Pending Pending
Calcium Pending Pending
Total Bilirubin
AST
ALT
Alkaline Phosphatase
Vital Signs:
Vital Signs
Temp Pulse Resp BP Pulse Ox
97.7 F 117 28 118/95 97
11/20/24 08:00 11/20/24 10:45 11/20/24 10:45 11/20/24 10:43 11/20/24 10:43
I&O
11/19/24 11/20/24 11/21/24
06:59 06:59 06:59
Intake Total 920 / 1073 607.5 / 607.5
Balance 920 / 1073 607.5 / 607.5
Review of Systems
-
History Source: Patient
Constitutional: Reports Chills; Denies Fever
Respiratory: Reports Cough
Cardiac: Denies Chest Pain
Abdomen/GI: Denies Abdominal Pain, Nausea or Diarrhea
Genitourinary: Reports No Symptoms
Physical Exam
-
General: Appears Chronically Ill and Other (appears uncomfortable)
HEENT: Normocephalic, Atraumatic and Anicteric
Respiratory: Rhonchi (scattered rhonchi) and Decreased Breath Sounds (R LL field)
Cardiac: Irregular Rhythm and Tachycardic
GI: Soft, Nontender, Nondistended and Normal Bowel Sounds
Genito-urinary: No Costovertebral Tender and Turbid Urine
Musculoskeletal: No Cyanosis and No Edema
Skin: Warm and Dry
Neuro: Awake, Alert and Oriented
Psych: Calm
[2024-11-20 11:29] LABS: Urine Albumin 3+ (Neg - Trace); Urine Bilirubin Negative (Negative); Urine Character Slightly Cloudy (Clear); Urine Color Yellow; Urine Glucose 2+ (Negative); Urine Ketone 1+ (Negative); Urine Leukocyte Negative (Negative); Urine Nitrite Negative (Negative); Urine Occult Blood 4+ (Negative); Urine Urobilinogen Negative (Neg - 1+)
[2024-11-20 11:30] LABS: Lactic Acid 2.3 mmol/L (0.7-2.0)
[2024-11-20 11:43] LABS: Troponin I 0.045 ng/ml
[2024-11-20 11:48] LABS: Urine Squamous Cell 16-20 /LPF (Few); Urine Urothelial Cell 0-2 /LPF (FEW)
[2024-11-20 11:50] LABS: Urine Bacteria Many (Negative)
[2024-11-20 12:04] LABS: Glucose - Point of Care 90 mg/dl (70-99)
[2024-11-20] MEDS: VIBRAMYCIN 100 MG PO ×2 (12:25→21:24)
[2024-11-20] MEDS: ROCEPHIN 1000 MG IV (12:25)
[2024-11-20] MEDS: STERILE WATER FOR INJECTION 10 ML IV (12:29)
[2024-11-20 12:45] LABS: Blood Urea Nitrogen 31 mg/dl (7-17); Calcium 8.4 mg/dl (8.4-10.2); Carbon Dioxide 17 mmol/L (22-30); Chloride 105 mmol/L (98-107); Estimated Creatinine Clearance 25 ml/min; Glucose 67 mg/dl (70-99); Potassium 4.5 mmol/L (3.5-5.1); Sodium 136 mmol/L (135-145); eGFR 32.81
[2024-11-20 13:07] LABS: Salicylate < 1.0 mg/dl (2.0-20.0)
--- NOTE | 2024-11-20 13:08 | PN.DE.MGMTRT ---
Insulin Management
- -
11/20/2024: Diabetes Management Consult
79 year old female with recent h/o A-fib on Eliquis, HTN, HLD, h/o lung and breast cancers and T2DM, who presents with sepsis, anion gap metabolic acidosis and DKA. GAP was 24--> initiated on DKA protocol.
Pt is awake, alert, confused and disoriented to place time and date. Repors she is at [facility], month of February, year is 2022.
She is a poor historian and unable to provide details regarding her outpatient diabetes care. Chart review indicates, pt was taking Metformin 1500 mg in AM,1000mg in PM and glipizide 2.5mg daily. A1C 7.5%, Cr 1.6, eGFR 32.84
Recent BMP done at 11am shows GAP still open at 14. Glucose range has been 67 to 216, requiring 0.5 to 3 units of insulin/hr.
Insulin infusion is off at this time due to an episode of Hypoglycemia.
Discussed with Resident, ICU team and Nurse, Need to check another BMP at 15:00 to confirm GAP has closed.
Resume IVF for now, would hold off on discontinuing DKA protocol to SQ inulin at this time and consider transitioning off infusion if GAP is closed, ideally <10.
Will follow 15:00 BMP
Diabetes History
- -
Type of Diabetes: 2 requiring insulin
Pre-Admission Diabetes Regimen
11/19/24 11/19/24 11/19/24
19:35 21:00 23:00
Creatinine 1.4 H Cancelled Cancelled
11/20/24 11/20/24 11/20/24
00:22 04:12 07:43
Creatinine 1.4 H 1.4 H 1.5 H
11/20/24
11:01
Creatinine 1.6 H
Lab Results
Hemoglobin A1c 7.5 % (4.0-5.6) H 11/20/24 00:22
Insulin Pump Settings
IP Diabetes Regimen
11/19/24 11/19/24 11/19/24
19:35 21:00 21:09
Glucose 334 H Cancelled
POC Glucose 295 H
11/19/24 11/19/24 11/19/24
22:16 23:00 23:04
Glucose Cancelled
POC Glucose 289 H 263 H
11/20/24 11/20/24 11/20/24
00:06 00:22 01:07
Glucose 219 H
POC Glucose 228 H 252 H
11/20/24 11/20/24 11/20/24
02:07 03:14 04:12
Glucose 224 H
POC Glucose 245 H 257 H 250 H
11/20/24 11/20/24 11/20/24
05:15 06:00 07:03
Glucose
POC Glucose 220 H 219 H 216 H
11/20/24 11/20/24 11/20/24
07:43 07:57 10:02
Glucose 171 H
POC Glucose 180 H 91
11/20/24 11/20/24 11/20/24
11:00 11:01 11:53
Glucose 67 L
POC Glucose 78 90
Patient Education
[2024-11-20 13:09] LABS: Alcohol None Detected
--- NOTE | 2024-11-20 13:25 | CON.CAR ---
Addendum entered and electronically signed by Roslyn Wu MD 11/20/24 16:36:
I saw and examined the patient.
The DITCH RIDER's note was reviewed and I agree with the note.
Comment: 79 y/o female with pSVT, permanent AFIB, DM, HLD, mild /AR/MR, RA, hypertension, stage I lung cancer with radiation. She is here for SOB and is seen to have flu A and pneumonia. We are consulted for AFIB with RVR in the setting of septic
shock. She feels short of breath, no cp or palpitations. Concerning finding metabolic acidosis, elevated LFTs, and dropping hgb.on exam, she appears ill, irreg irreg, diffuse rales and rhonchi b/l, trace b/l edema, abdomen was nt. Overall, most
pressing issue is septic shock in the setting of influenza A and community-acquired pneumonia of the right lower lobe. She has permanent atrial fibrillation and the rate is responsive to how sick she is. For now, would continue to monitor and hold
off on resuming propranolol especially given her elevated LFTs. Blood pressure is normal now, but today required fluid bolus for stabilization. Additionally, given her elevated LFTs which are concerning for a shock etiology, will not want to
precipitate any hypotension. Moving forward, as she improves clinically, she will likely need diuresis and resumption of rate control. But at this time, I do not think this is the best next step. We should deal with her septic shock first and
then optimize her volume status. Echo was notable for a distended IVC that did not collapse and RV volume overload, but this was following a 2 L bolus.
Findings discussed with Dr. Gomez from the varnish remover team and Masha are her ICU nurse.
Original Note:
Consultation
Consultation Request
Date/Time Consultation Requested: 11/20/24 1305
Date/Time Consultation Performed: 11/20/24 1330
Requesting Provider: Dr. Wong
Performing Provider: Mireille CAMPOVERDE for Dr. Wu
Reason for Consultation: AFIB with RVR
Medical History
-
Chief Complaint: SOB
History of Present Illness:
79 y/o female with pSVT, permanent AFIB, DM, HLD, mild /AR/MR, RA, hypertension, stage I lung cancer with radiation. She is here for SOB and is seen to have flu A and pneumonia. We are consulted for AFIB with RVR. She does not feel it. HR
currently in 120's. Otherwise, she is seen to have significantly abnormal LFT's and mild MODESTA. Metabolic acidosis, Hyperkalemia, elevated lactic acid, and elevated glucose noted on arrival- all improving. She is in no distress at the time of my
assessment. Her is at bedside. Temp 102.2.
Past Medical History
Past Medical History: Arrhythmias, Cancer, HTN, Hypercholesterolemia, NIDDM and Other (as above)
Social History
Personal:
Living: With Family
Allergies / Home Medications
Allergy/AdvReac Type Severity Reaction Status Date / Time
infliximab [From Remicade] Allergy Unknown Verified 11/19/24 19:53
�Medication �Instructions �Recorded �Confirmed �Type
metformin 500 mg tablet 1,500 mg PO .DAILYINMORNING 09/03/20 11/19/24 History
glipizide 5 mg tablet 2.5 mg PO DAILY 09/06/20 11/19/24 History
alendronate 70 mg tablet (Fosamax) 70 mg PO MO 10/16/22 11/19/24 History
cholecalciferol (vitamin D3) 25 25 mcg PO DAILY 10/16/22 11/19/24 History
mcg (1,000 unit) tablet (Vitamin
D3)
metformin 500 mg tablet 1,000 mg PO QPM 10/16/22 11/19/24 History
methotrexate sodium 2.5 mg tablet 10 mg PO HERNANDEZ 10/16/22 11/19/24 History
simvastatin 20 mg tablet 20 mg PO HS 10/16/22 11/19/24 History
solifenacin 10 mg tablet 10 mg PO DAILY 10/16/22 11/19/24 History
docusate sodium 100 mg capsule 100 mg PO DAILYPRN PRN constipation 10/28/24 02/12/25 History
(Colace)
leucovorin calcium 10 mg tablet 10 mg PO HERNANDEZ 08/04/24 11/19/24 History
polyethylene glycol 3350 17 gram 17 g PO DAILYPRN PRN constipation 08/04/24 11/19/24 History
oral powder packet (Miralax)
therapeutic multivitamin 1 tab PO DAILY 08/04/24 11/19/24 History
umeclidinium 62.5 mcg-vilanterol 1 inh inhalation R DAILY 08/04/24 11/19/24 History
25 mcg/actuation powdr for
inhalation (Anoro Ellipta)
apixaban 5 mg tablet (Eliquis) 5 mg PO BID #60 tabs 08/09/24 11/19/24 Rx
propranolol 60 mg capsule,24 120 mg PO DAILY 09/16/24 11/19/24 History
hr,extended release
acetaminophen 650 mg 1,300 mg PO TID 11/19/24 11/19/24 History
tablet,extended release
gabapentin 100 mg tablet 100 mg PO .DAILYINMORNING 11/19/24 11/19/24 History
gabapentin 100 mg tablet 200 mg PO .DAILYINEVENING 11/19/24 11/19/24 History
melatonin 2.5 mg chewable tablet 2.5 mg PO HS PRN sleep 11/19/24 11/19/24 History
pregabalin 75 mg capsule 75 mg PO HS 11/19/24 11/19/24 History
Review of Systems
-
History Source: Patient and Family
All other systems: Negative unless noted
Respiratory: Trouble Breathing
Physical Exam
Vital Signs
Temp Pulse Resp BP Pulse Ox
102.2 F H 117 28 118/95 95
11/20/24 11:40 11/20/24 10:45 11/20/24 10:45 11/20/24 10:43 11/20/24 12:47
Lab Results
11/20/24 05:05
Troponin I 0.045 ng/ml H* 11/20/24 11:01
Opb-G-Zdxvaiofoxz Pept 77703 pg/ml 11/19/24 20:06
Physical Exam
General: Well Developed, Well Nourished and No Apparent Distress
HEENT: Normocephalic and Anicteric
Respiratory: Wheezes and Rhonchi
Cardiac: Peripheral Edema (mild BLE)
Skin: Warm and Dry
Neuro: Awake, Alert and Oriented
Psych: Calm
Impression / Plan
-
Sepsis:
-diagnosis is threat to life
-s/p 2L fluid
-patient with flu A- getting Tamiflu and PNA (getting IV abx)
AFIB with RVR:
-patient has known permanent AFIB. In the setting of acute illness and not getting daily propranolol, rate is elevated.
-resume propranolol and follow telemetry
-Eliquis held with anemia and abnormal liver tests. Denies any clinical bleeding. Some likely dilutional. Monitor closely.
Abnormal troponin: 0.045
-acute, non-ischemic myocardial injury in setting of acute illness as above
-echo normal EF
Volume overload:
-Echo, BNP as below.
-This is in setting of sepsis s/p 2 L IVF. Would not recommend diuresis at this time.
Abnormal liver tests, significant:
-per primary, w/u underway
-statin held
Data Reviewed
-
EKG: Tracing Personally Visualized and interpreted (AFIB 93 BPM)
Radiology: Report Reviewed by me (Mild pneumonia in the medial right lung base.)
Medical Tests (Nuc Med, Echo etc): Report Reviewed by me (Echo 11/20/24: Normal biventricular size and systolic function without regional wall motion abnormality, EF 55-60%. Abnormal (paradoxical) septal motion consistent with right ventricular (RV)
volume overload. Mild aortic stenosis. Moderate tricuspid regurgitation. Moderate pulmonary hypertension.)
Labs: Labs Reviewed by me (BNP 12,200)
--- NOTE | 2024-11-20 13:31 | PTCARENOTE ---
Plan discussed with Ermias, Diabetic Ed. [employer] CLE[employer]ER, will adjust orders. IVF resumed at this time per her instructions. D5 1/2 NS at 150/hr infusing to left fa. Pt remains intermittenly confused, disoriented, to place and time, situation. Temp elevated
however Tylenol not administered at this time due to elevated LFTs as per counter sales representative. Bed alarm on -safe environment maintained.
[2024-11-20 14:12] LABS: Potassium 4.7 mmol/L (3.5-5.1)
[2024-11-20 14:27] LABS: Troponin I 0.051 ng/ml
--- NOTE | 2024-11-20 14:28 | PTCARENOTE ---
Insulin gtt resumed at this time per protocol for accu check result of 144. Temp now 102.5, PRN Motrin administered. at bedside, questions answered.
[2024-11-20 14:37] LABS: Glucose - Point of Care 144 mg/dl (70-99)
[2024-11-20] MEDS: MOTRIN 200 MG PO (14:51)
[2024-11-20 15:29] LABS: Blood Urea Nitrogen 32 mg/dl (7-17); Carbon Dioxide 17 mmol/L (22-30); Chloride 105 mmol/L (98-107); Estimated Creatinine Clearance 25 ml/min; Glucose 154 mg/dl (70-99); Potassium 4.6 mmol/L (3.5-5.1); Sodium 134 mmol/L (135-145); eGFR 32.81
--- NOTE | 2024-11-20 15:35 | CON.GI ---
Addendum entered and electronically signed by Archana Rivas MD 11/20/24 18:17:
I saw and examined the patient.
The CHIN STRAP MAKER or PA's note was reviewed and I agree with the note.
Comment: 79-year-old female with history of breast cancer status postlumpectomy, stage I lung cancer s/p radiation, hypertension, diabetes, atrial fibrillation on Eliquis presenting with shortness of breath, noted to have influenza A and pneumonia,
also noted to have DKA with metabolic acidosis, currently in the ICU and GI consult was called in for elevated transaminases. Previous LFTs were within normal limits September 2024, on admission, total bilirubin was 1.2 with AST of 566 and ALT of
258 and alkaline phosphatase of 137 and today AST is elevated at 2839 and ALT of 1208. Bilirubin and alkaline phosphatase within normal range. She had CT scan of the abdomen and pelvis without contrast that showed prominent gallbladder wall
thickening, subtle increased attenuation of sludge of concentrated bile in the lumen without gallstones. Subsequent abdominal ultrasound with Doppler unremarkable. She does take at least 4 to 6 tablets of Tylenol daily adult serum Tylenol level
was less than 10. No history of underlying liver disease.
History of positive Cologuard and colonoscopy in 2022 with piecemeal resection of large descending colon sessile serrated polyp.
-Significantly elevated transaminases with normal total bilirubin and alkaline phosphatase, abdominal imaging showing normal liver
Could be related multifactorial-underlying sepsis, infection and picture suggesting shock liver though blood pressure has never been significantly low. No recent new medication which are hepatotoxic.
No significant history of alcohol use.
Will check hepatitis B and C serologies.
Avoid low flow state, keep MAP>65
Closely monitor LFTs. Noted INR elevated at 3.5
If LFTs continue to go up, could consider starting IV N-acetylcysteine.
Will follow closely
Original Note:
Consultation
-
Date/Time Consultation Requested: 11/20/24 1114
Date/Time Consultation Performed: 11/20/24 1500
Requesting Provider: Dr Wong
Performing Provider: Dr Rivas / Roseann Collins PA-C
Reason for Consultation: elevated LFTs
Medical History
Chief Complaint / HPI
Chief Complaint: cough/SOB
History of Present Illness:
Melissa is a 79 year old female with a past medical history of a fib (on Eliquis, currently held), HTN, DM, hypothyroidism, RA, breast cancer (s/p lumpectomy), stage 1 lung cancer (s/p radiation), and colon polyps who is currently admitted for sepsis
with influenza A and pneumonia. Presented to the ER 11/19/24 with shortness of breath, with right lower lobe pneumonia seen on chest x-ray and flu A positive. Lactate was markedly elevated, with DKA and metabolic acidosis. Patient was started on
Tamiflu and Zosyn. GI is consulted for elevated LFTs, which were as follows yesterday 11/19: total bilirubin 1.2, direct bilirubin 0.7, AST 566, ALT 258, and alk phos 137. Today transaminases elevated significantly with AST 2892 and ALT 1208. Alk
phos actually trended downward (now 97) and bilirubin (both direct and indirect) were within normal range. Patient denies any abdominal pain, nausea or vomiting. She does complain of fever (today's temp 102.5) and chills. Patient denies a history of
liver disease. She infrequently drinks alcohol, 'a glass of wine at a restaurant' about once or twice a month. She denies NSAID use, but does take Tylenol on a daily basis (3,000-4,000grams/day). No drug use. No recent medication changes. Tylenol
level, salicylates, and blood alcohol level all within normal range.
Past Medical History
Past Medical History: Other (a fib (on Eliquis, currently held), HTN, DM, hypothyroidism, RA, breast cancer (s/p lumpectomy) stage 1 lung cancer (s/p radiation), colon polyps)
Past Surgical History: Other (JENNIFER / DCCV (09/2024), T&A, Cataracts, Appendectomy, x 2, Carpal Tunnel Surgery, Lumpectomy, Right Knee Arthroscopy)
Social History
Tobacco: Non-Smoker
Alcohol: Occasional
Drug: None
Personal:
Living: With Family
Family History
Family History: Adopted
Allergies / Home Medications
Allergy/AdvReac Type Severity Reaction Status Date / Time
infliximab [From Remicade] Allergy Unknown Verified 11/19/24 19:53
�Medication �Instructions �Recorded
metformin 500 mg tablet 1,500 mg PO .DAILYINMORNING 09/03/20
glipizide 5 mg tablet 2.5 mg PO DAILY 09/06/20
alendronate 70 mg tablet (Fosamax) 70 mg PO MO 10/16/22
cholecalciferol (vitamin D3) 25 25 mcg PO DAILY 10/16/22
mcg (1,000 unit) tablet (Vitamin
D3)
metformin 500 mg tablet 1,000 mg PO QPM 10/16/22
methotrexate sodium 2.5 mg tablet 10 mg PO HERNANDEZ 10/16/22
simvastatin 20 mg tablet 20 mg PO HS 10/16/22
solifenacin 10 mg tablet 10 mg PO DAILY 10/16/22
docusate sodium 100 mg capsule 100 mg PO DAILYPRN PRN constipation 08/04/24
(Colace)
leucovorin calcium 10 mg tablet 10 mg PO HERNANDEZ 08/04/24
polyethylene glycol 3350 17 gram 17 g PO DAILYPRN PRN constipation 08/04/24
oral powder packet (Miralax)
therapeutic multivitamin 1 tab PO DAILY 08/04/24
umeclidinium 62.5 mcg-vilanterol 1 inh inhalation R DAILY 08/04/24
25 mcg/actuation powdr for
inhalation (Anoro Ellipta)
apixaban 5 mg tablet (Eliquis) 5 mg PO BID #60 tabs 08/09/24
propranolol 60 mg capsule,24 120 mg PO DAILY 09/16/24
hr,extended release
acetaminophen 650 mg 1,300 mg PO TID 11/19/24
tablet,extended release
gabapentin 100 mg tablet 100 mg PO .DAILYINMORNING 11/19/24
gabapentin 100 mg tablet 200 mg PO .DAILYINEVENING 11/19/24
melatonin 2.5 mg chewable tablet 2.5 mg PO HS PRN sleep 11/19/24
pregabalin 75 mg capsule 75 mg PO HS 11/19/24
Review of Systems
-
History Source: Patient
All other systems: A 12 pt ROS was Negative except as stated above in HPI
Vital Signs
Temp Pulse Resp BP Pulse Ox
102.5 F H 131 16 112/60 95
11/20/24 14:25 11/20/24 14:15 11/20/24 14:15 11/20/24 14:00 11/20/24 12:47
Physical Exam
Exam
General: Well Developed, Well Nourished and No Apparent Distress
HEENT: Normocephalic
Respiratory: Clear
Cardiac: Irregular Rhythm (with elevated HR (120s-130s))
GI: Soft, Non Tender, Non Distended and Normal Bowel Sounds
Skin: Warm and Dry
Neuro: Awake, Alert and Oriented
Psych: Calm
Results
WBC 9.4 10^3/uL (4.8-10.8) 11/20/24 04:12
Hgb 7.8 g/dL (12.0-16.0) L 11/20/24 05:05
Hct 24.2 % (37.0-47.0) L 11/20/24 04:12
MCV 92.0 fL (81.0-99.0) 11/20/24 04:12
Plt Count 165 10^3/uL (130-400) D 11/20/24 04:12
Absolute Neuts (auto) 8.7 10^3/uL (1.4-6.5) H 11/20/24 04:12
PT 35.5 Sec (11.4-14.6) H 11/20/24 04:12
INR 3.52 11/20/24 04:12
APTT 34.0 Sec (23.4-35.0) 11/19/24 19:35
Sodium 134 mmol/L (135-145) L 11/20/24 14:57
Potassium 4.6 mmol/L (3.5-5.1) 11/20/24 14:57
Chloride 105 mmol/L (98-107) 11/20/24 14:57
Carbon Dioxide 17 mmol/L (22-30) L 11/20/24 14:57
BUN 32 mg/dl (7-17) H 11/20/24 14:57
Creatinine 1.6 mg/dL (0.6-1.0) H 11/20/24 14:57
Calcium 8.0 mg/dl (8.4-10.2) L 11/20/24 14:57
Total Bilirubin 0.6 mg/dl (0.2-1.3) 11/20/24 04:12
AST 2892 U/L (14-36) H* 11/20/24 04:12
ALT 1208 U/L (0-35) H* 11/20/24 04:12
Alkaline Phosphatase 97 U/L (38-126) 11/20/24 04:12
Diagnostic Image Results:
11/20/24 US Abdomen:
No evidence of cholelithiasis, gallbladder wall thickening or biliary tract dilatation.
11/19/24 CT Abdomen/Pelvis:
Posterior right lower lobe pneumonia. Small parapneumonic effusion.
Prominent gallbladder wall thickening. Subtle increased attenuation of sludge or concentrated bile within the lumen. No calcified gallstones identified. Acute cholecystitis to be excluded.
Progressive thickening/enlargement and indistinct margination of left adrenal gland, suggesting possible changes of inflammation/adrenalitis.
Limited bowel evaluation secondary to lack of intravenous and oral contrast. No evidence of bowel obstruction. Minor sigmoid diverticulosis. No evidence of acute diverticulitis.
Trace free pelvic fluid.
Prior GI Procedures:
EGD:
Colonoscopy:
08/2023 (Dr Dillard)
Diverticulosis in the sigmoid colon and in the descending colon.
- One 8 mm polyp in the proximal transverse colon,
removed with a cold snare. Resected and retrieved.
- One 20 mm polyp in the proximal transverse colon,
removed piecemeal using a cold snare. Resected and
retrieved.
- Internal hemorrhoids.
Biopsies showing tubular adenoma and sessile serrated lesions.
Repeat colonoscopy in 6 months for surveillance
after piecemeal polypectomy.
04/2016 (Dr Savage)
Diverticulosis in the sigmoid colon and in the descending colon.
- Normal mucosa in the entire examined colon. Multiple
random biopsies were obtained in the entire colon.
Assessment / Plan
-
79 year old female who is currently admitted with sepsis secondary to influenza A and right lower lobe pneumonia, with DKA and metabolic acidosis, who has significantly elevated transaminases (AST 2892, ALT 1208), currently on both Tamiflu and
antibiotics (initially Zosyn; now on ceftriaxone and doxycycline for pneumonia). Patient rarely drinks alcohol and has no prior history of liver disease. She is on a statin. CT abdomen/pelvis showed possible gallbladder wall thickening, but US
showed no abnormalities of the gallbladder. She has no abdominal pain; no nausea, vomiting, jaundice. Tylenol level, salicylates, and blood alcohol level all within normal range.
IMPRESSION / PLAN:
Elevated LFTs - significantly elevated transaminases, suspect shock liver secondary to sepsis
- US showed normal appearance of the liver without focal hepatic lesion
- trend LFTs
- Hepatitis serologies pending
- Tylenol, salicylate and alcohol levels normal
Colon Polyps (tubular adenoma/sessile serrated lesion) and h/o positive Cologuard
- her last colonoscopy was in 08/2023 with recommendation to repeat in 6 months due to piecemeal polypectomy
- outpatient GI follow-up to discuss colonoscopy
All other medical issues managed per Workers' Compensation Claims Examiner, Cardiology, and hospitalist team.
-
-
Thank you for consultation and allowing me to participate in the patient's care. Please call the aerial planting and cultivation manager GI physician during the after hours with any questions or concerns.
[2024-11-20 15:43] LABS: Glucose - Point of Care 160 mg/dl (70-99)
--- NOTE | 2024-11-20 16:00 | PTCARENOTE ---
Pt with no void since approx 10:30, stated she felt like she could go, bladder scanned for 458 mls, placed on bedpan and was able to void 350 mls dark roland cloudy urine. Plan of care reviewed with Bryce Acevedo, GI and diabetes edu
chain puller. All labs drawn and sent as ordered.
--- NOTE | 2024-11-20 16:31 | CM ---
Patient seen at bedside with physician and patient . Patient lives independently with in an apartment with no steps. Patient PCP is Dr. Moise and she uses the [facility] in [place] for her Pharmacy needs. Patient may benefit from SNF
stay pending PT/OT assessment. Patient aware and discussing options for SNF. CM will continue to follow for discharge planning needs.
Plan; SNF pending functional status closer to discharge.
[2024-11-20 16:44] LABS: Glucose - Point of Care 156 mg/dl (70-99)
[2024-11-20 16:48] LABS: Lactic Acid 2.2 mmol/L (0.7-2.0)
[2024-11-20 17:46] LABS: Glucose - Point of Care 146 mg/dl (70-99)
--- NOTE | 2024-11-20 18:07 | PTCARENOTE ---
Pt looking more comfortable, calm and cooperative, but still seeing things in room that are not there such as a 'pill' on the footboard, (a groove in the bedrail) and a 'cat' on the counter, (her black purse.) Temperature rechecked, now 99 s/p
Татьяна (see MAR for times.) Plan discussed with Ermias Arias -orders rec'd to redraw labs at 19:00 and determine GAP based on result.
[2024-11-20 18:49] LABS: Glucose - Point of Care 142 mg/dl (70-99)
[2024-11-20 19:03] LABS: Lactic Acid 1.9 mmol/L (0.7-2.0)
[2024-11-20 19:14] LABS: Blood Urea Nitrogen 32 mg/dl (7-17); Calcium 7.7 mg/dl (8.4-10.2); Carbon Dioxide 20 mmol/L (22-30); Chloride 105 mmol/L (98-107); Estimated Creatinine Clearance 27 ml/min; Glucose 144 mg/dl (70-99); Potassium 3.8 mmol/L (3.5-5.1); Sodium 132 mmol/L (135-145); eGFR 35.45
[2024-11-20] MEDS: LANTUS 0.15 UNITS SC (20:00)
--- NOTE | 2024-11-20 20:00 | PTCARENOTE ---
rec`d pt at 1900 awake resting in bed. pt is oriented to self but not place or time. forgetfulness waxes and weans. essential tremors from baseline. weak but palpable pulses. +1 bilateral LE Edema.hr 90s-low 100s. afebrile. RA POX mid 90s.
productive occasional cough. round abdomen, hypo BS. urinates on bedpan. 2 person assist. PIVS flushed and patent. transitioned off insulin gtt. safe environment maintained. bed alarm on.
[2024-11-20 20:11] LABS: Glucose - Point of Care 151 mg/dl (70-99)
[2024-11-20 20:39] LABS: Hepatitis B Surface Antigen Negative (Negative)
[2024-11-20 20:57] LABS: Hepatitis A Antibody, Total Negative (Negative); Hepatitis B Core Ab, Total Negative (Negative); Hepatitis B Surface Antibody Negative; Hepatitis C Antibody Negative (Negative)
[2024-11-20] MEDS: LR 1000 IV (21:24)
[2024-11-20] MEDS: D5/0.45%NACL IV (21:48)
[2024-11-20 22:02] LABS: Glucose - Point of Care 135 mg/dl (70-99)
[2024-11-21] VITALS (25 sets, daily range): BP systolic 81–147; BP diastolic 61–100; BMI 23.1
--- NOTE | 2024-11-21 | PTCARENOTE ---
pt reassessed. no changes in pt assessment. call barbosa in reach, safe environment maintained.
[2024-11-21] MEDS: HEPARIN 5000 UNITS SC ×3 (01:30→17:15)
[2024-11-21 03:40] LABS: % Basophils 0.1 % (0-2); % Immature Granulocytes 0.3 % (0-0.5); % Monocytes 2.9 % (1.7-9.3); % Neutrophils 82.7 % (42.2-75.2); Absolute Monocytes 0.2 10^3/uL (0.1-0.6); Hematocrit 22.9 % (37.0-47.0); Hemoglobin 7.2 g/dL (12.0-16.0); Mean Corp Hgb Conc. 31.4 g/dL (33.0-37.0); Mean Corpuscular Hgb 28.8 pg (27.0-31.0); Mean Corpuscular Volume 91.6 fL (81.0-99.0); Mean Platelet Volume 9.9 fL (7.4-10.4); Nucleated Red Blood Cells % 0 %; Platelet Count 150 10^3/uL (130-400); Red Cell Dist. Width 15.4 % (11.5-14.5); White Blood Cell Count 7.2 10^3/uL (4.8-10.8)
[2024-11-21 04:27] LABS: ALT (SGPT) 1635 U/L (0-35); Albumin 2.9 g/dl (3.5-5.0); Alkaline Phosphatase 90 U/L (38-126); Blood Urea Nitrogen 33 mg/dl (7-17); Calcium 7.9 mg/dl (8.4-10.2); Carbon Dioxide 20 mmol/L (22-30); Chloride 106 mmol/L (98-107); Estimated Creatinine Clearance 27 ml/min; Glucose 41 mg/dl (70-99); Magnesium 1.9 mg/dl (1.6-2.3); Potassium 3.6 mmol/L (3.5-5.1); Sodium 135 mmol/L (135-145); Total Bilirubin 0.7 mg/dl (0.2-1.3); Total Protein 5.1 g/dl (6.3-8.2); eGFR 35.45
[2024-11-21] MEDS: DEXTROSE 50% SYRINGE 12.5 GRAMS IV (04:33)
[2024-11-21 04:40] LABS: Glucose - Point of Care 49 mg/dl (70-99)
[2024-11-21 04:48] LABS: AST (SGOT) 4079 U/L (14-36)
--- NOTE | 2024-11-21 05:00 | PTCARENOTE ---
low BS in morning. dextrose given. 15 minute BS w/in normal range. pt continues to become more confused. not oriented, thinks shes at the [facility].
[2024-11-21 05:02] LABS: Glucose - Point of Care 121 mg/dl (70-99)
[2024-11-21] MEDS: D5/0.45%NACL 1000 IV (05:17)
[2024-11-21 06:07] LABS: Ammonia < 9 umol/L (9-30)
--- NOTE | 2024-11-21 06:24 | W.PN.HOSP.TC ---
Addendum entered and electronically signed by Neha Nolen MD 11/21/24 14:19:
I saw and evaluated the patient independently. I reviewed the resident�s note and agree with findings and plan as documented by Dr. Wong.
GENERAL: chronically frail appearing female in no apparent distress--much brighter today
HEENT: NC/AT-- off O2
HEART: irreg irreg tachy
LUNGS : clear to auscultation bilaterally
ABDOM: soft, nontender, nondistended, + bowel sounds
EXT: no cyanosis, clubbing, or edema
NEUROLOGIC: moves all extremities, essential tremor
Severe Sepsis--no pressor requirements--s/p IVF bolus for episode of hypotension--likely source is CAP secondary from influenza A positivity--less likely acute cholecystitis (US neg)--blood culture neg, urine culture with mixed jonathan (contaminant)
cont rocephin/doxy--cont tamiflu
Anion gap metabolic acidosis--multiple contributors--DKA (does have positive ketones) resolved, lactic acidosis from sepsis/metformin resolved, diarrhea with bicarbonate loss resolved--off insulin drip---stop IVF with bicarb cont
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
transaminitis--likely from sepsis (elevated AST/ALT -4079/1635 )/ 'shock liver'--episodes of hypotension BUT not shock per se (no documented hypotension requiring pressors) --apprec GI--US negative, hep panel negative--holding eliquis--holding
tylenol--level negative--NAC started
Permanent A-fib--rates not controlled--pt is s/p CV 09/16/24--Eliquis held for liver function--troponin elevation given illness not significant--likely nonischemic myocardial injury
Hyperkalemia/hypomagnesemia/ pseudohyponatremia--noted, treat as needed
anemia likely of chronic disease, exacerbated by IVF and dilutional drop--appears to have some element of iron deficiency--transfuse if HGB < 7--labs not entirely consistent with DIC (elevated coags can be seen with liver failure, D-dimer high but
fibrinogen WNL)--hemolysis still possible with drop in HGB--LDH increased--haptoglobin pending--consented for blood if needs
MODESTA on CKD stage 3 presumed--Creatinine 1.5 (baseline 1.0)--Avoid nephrotoxic agents, follow BMP--renal dose meds
Type 2 Ick-kweqhpk-sdsresmph diabetes mellitus---Hold metformin given lactic acidosis--Basal bolus/sliding scale insulin
Essential Hypertension--Home antihypertensives held while septic
Hyperlipidemia--Hold statin given transaminitis
DVT prophy--Subcu heparin
CODE STATUS--Full code
can downgrade to IMU
Total Critical Care Time 33 minutes. I was immediately available to the patient and staff. I personally examined, reviewed labs, diagnostic images/reports, interpretations, treatment plans, discussed patient care with other providers and family
or caregivers (if patient is unable to make decisions), entered orders as appropriate and documented the medical record.
Original Note:
Today's Communication/Plan
-
Continue tamiflu and abx
NAC started
Assessment / Plan
Assessment / Plan
81-year-old female with recent history of A-fib on Eliquis, hypertension, diabetes mellitus type 2, hyperlipidemia, history of lung and breast cancers, who presents with sepsis, anion gap metabolic acidosis and DKA.
Severe sepsis:
Respiratory source (flu A infection, right lower lobe pneumonia), versus urinary versus other source.
Leukocytosis plus tachypnea on presentation. Urine and blood cultures negative
-Continue Tamiflu day 3, renal dosing
-Continue ceftriaxone and doxycycline, abx day 3
-Nebs
Anion gap metabolic acidosis:
Multifactorial: DKA, lactic acidosis (secondary to sepsis versus metformin use), recent loose stools -possible diarrheal bicarb loss
Improving, status post bicarb bolus. Gap closed X 2.
-Continue to follow
-Lactate resolved
Diabetic ketoacidosis:
Resolved, gap closed, convert to subcu insulin
-Diabetic diet
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
Permanent A-fib:
Intermittently elevated HR
-Continue to monitor
-Appreciate cards recs
-Eliquis held for liver function
Transaminitis:
Significantly elevated AST/ALT - 4079/1635
Alk phos mild elevation, resolved. Elevated INR
-Patient was on 3900 mg Tylenol daily. Tylenol level <10. No alc history, alc level non detected. Hepatitis panel negative
-Abd US showed no evidence of cholelithiasis, gallbladder wall thickening or biliary tract dilatation
-transaminitis likely from shock liver, possibly hypotensive state during course of illness
-Appreciate GI recs. NAC started
Elevated troponin:
Denies chest pain/dyspnea
Likely nonischemic myocardial injury secondary to sepsis
-Trend trops
Electrolyte abnormality:
-Hyperkalemia resolved with insulin
-Magnesium repleted
-Low sodium due to pseudohyponatremia, resolved
Normocytic anemia:
Likley combination of iron deficiency and chronic disease. Hemoglobin 7.2
-Will continue to monitor H&H, transfuse if Hgb <7
-Will check hemolysis and DIC labs. Repeat H&H
MODESTA on CKD stage 3 , presumed:
-Creatinine 1.4 on arrival, baseline 1.0
-Avoid nephrotoxic agents, follow BMP, renal dosing for meds
Rkn-qkbvasa-twfbibply diabetes mellitus:
-Hold metformin given lactic acidosis
-Lantus 15u HS, ISS
Hypertension:
-Home antihypertensives held while septic
Hyperlipidemia:
-Hold statin given transaminitis
DVT prophylaxis: Subcu heparin
CODE STATUS: Full code
Anticipated Discharge: > 48 hours
Subjective/Interval History
-
Date of Service: November 21, 2024
Objective Data
-
Labs:
Laboratory Results
02/13/25 02/14/25
18:39 03:16
WBC 7.2
Hgb 7.2 L
Hct 22.9 L
Plt Count 150
Sodium 132 L 135
Potassium 3.8 3.6
Chloride 105 106
Carbon Dioxide 20 L 20 L
BUN 32 H 33 H
Creatinine 1.5 H 1.5 H
Glucose 144 H 41 L*
Calcium 7.7 L 7.9 L
Total Bilirubin 0.7
AST 4079 H*
ALT 1635 H*
Alkaline Phosphatase 90
Vital Signs:
Vital Signs
Temp Pulse Resp BP Pulse Ox
98.2 F 101 17 144/96 96
11/21/24 04:00 11/21/24 06:00 11/21/24 06:00 11/21/24 06:00 11/20/24 20:00
I&O
11/19/24 11/20/24 11/21/24
06:59 06:59 06:59
Intake Total 920 / 1073 3397.5 / 3397.5
Output Total 875 / 875
Balance 920 / 1073 2522.5 / 2522.5
Review of Systems
-
History Source: Patient
Constitutional: Denies Fever
Respiratory: Reports Cough; Denies Trouble Breathing
Cardiac: Denies Chest Pain
Abdomen/GI: Denies Abdominal Pain, Nausea, Vomiting or Diarrhea
Genitourinary: Denies Dysuria
Skin: Reports Itching (left forearm)
Physical Exam
-
General: No Apparent Distress and Comfortable
HEENT: Normocephalic, Atraumatic and Moist Mucous Membranes
Respiratory: Wheezes (mild scattered wheezing) and Non Labored Respirations
Cardiac: Regular Rhythm and S1/S2; Negative Murmur, Rub or Calf Tenderness
GI: Soft, Nontender, Nondistended and Normal Bowel Sounds
Genito-urinary: No Costovertebral Tender
Musculoskeletal: No Clubbing, No Cyanosis and No Edema
Skin: Warm and Dry
Neuro: Awake, Alert and Oriented
Psych: Calm
[2024-11-21 07:17] LABS: Glucose - Point of Care 107 mg/dl (70-99)
--- NOTE | 2024-11-21 07:38 | W.PN.INTV ---
Today's Communication / Plan
Recommendations
Wean FiO2
Follow LFTs
NAC started
Finite course of antibiotics
Finite course of Tamiflu
Outpatient pulmonary follow-up
Transfer out of ICU-call pulmonary if respiratory issues worsen
Assessment
-
79-year-old former smoking female with a history of hypertension, diabetes, hypothyroid, breast cancer, lung cancer status post XRT, rheumatoid arthritis, skin cancer and PAF presented with increasing shortness of breath found to have influenza and
DKA-co chairman consulted for pneumonia/DKA/critical care management 11/20/2024.
Txpmgoveh-wyqhpydco-npvmpjdg-right lower lobe
Influenza A+
Sepsis
Metabolic acidosis
Lactic acidosis
Hyperkalemia
Hypomagnesemia
DKA
Transaminitis
Hyperkalemia
Hyperglycemia
PAF-on chronic Eliquis
CHF-preserved EF
Anemia-normocytic
Leukocytosis
Elevated troponin
Conditions present prior to admission:
Hypothyroid.
Hypertension.
PAF.
Breast cancer.
Lung cancer-left upper lobe adenocarcinoma status post XRT.
Former smoker.
Asthma-mild intermittent
Rheumatoid arthritis
Osteopenia
Fatty liver
History of anal fissure-fistulotomy
Essential tremor-
Diverticulosis
Adrenal adenoma
Skin cancer. Tonsillectomy. Cataract. Appendectomy. x 2. Carpal tunnel. Lumpectomy-carcinoma in situ 1997. Right knee arthroplasty. Trigger finger.
Plan
Hemodynamically improved but LFTs rising
Supplement oxygen as needed-attempt to wean-currently on room air
Aspiration precautions per protocol
Nebulizers if needed-minimal wheezing
Follow-up chest x-ray in several days to ensure clearing
Cultures reviewed
Empiric antibiotics-initially covered for cholecystitis and then this is less likely now covered for pneumonia-ceftriaxone and doxycycline
Continue Tamiflu
Monitor leukocytosis
Decrease IV fluids
Lactate trended
Norepinephrine wean
Monitor abdominal exam
Ultrasound of the abdomen without evidence for acute cholecystitis
Change Zosyn to ceftriaxone and doxycycline
Replace electrolytes
Monitor renal function
Gentle diuresis
Monitor renal function, electrolytes, intake/output, lower extremity edema and weight
Replace electrolytes as needed
Follow chest x-ray
Monitor hemoglobin
Transfuse as needed
Trend transaminitis-continues to rise-no obvious history of Tylenol toxicity and no episodes of 'shock' to explain
GI consult noted-correspondence reviewed
Dr. oTrres reviewed with hepatology at [facility]
NAC started
Check methotrexate level
Trend troponin
Atrial fibrillation rate control
Eliquis reinitiation per cardiology
Echocardiogram
Cardiology consultation noted-reviewed with Dr. Wu
Monitor blood sugar
Insulin drip-discontinue and change to subcu
Replace electrolytes as needed
Diabetic nurse practitioner consultation
A1c if not obtained in the last 3 months
DVT prophylaxis-on subcu heparin-consider holding if INR remains elevated
GI prophylaxis-on pantoprazole
Begin nutrition
Increase ambulation
If continues to be hemodynamically stable patient could be transferred out of ICU to IMU-co chairman will sign off-call pulmonary if respiratory issues worsen-finish Tamiflu/antibiotics and follow-up chest [id number]-[id number] follow-up as well
Patient was last seen in the pulmonary office by Dr. Solo 07/12/2023-told to follow-up in 1 year-will ask to follow-up sooner
Critical care statement: A total of 40 minutes of critical care time was provided for this patient today. This includes management of unstable vital signs, evaluation of the patient at bedside, reviewing the patient's pertinent medical records
including radiographs, insulin drip management, pressor management, microbiology, laboratory evaluations, and discussion with primary team, consultants, pharmacy, nutrition, physical therapy, case management, charge nurse, critical care nursing,
and respiratory therapy.
Diagnostic data:
Chest x-ray 08/04/2024-no evidence for acute intrathoracic abnormalities
CT abdomen 09/23/24-3.2 cm solid partially cystic upper pole left kidney mass suspicious for left renal cell carcinoma, small right pleural effusion, mild interstitial cardiogenic edema
CT abdomen and pelvis 11/19/2024-right lower lobe pneumonia, prominent gallbladder wall thickening with some sludge but no calcified gallstones
Abdominal ultrasound 11/20/2024-no evidence for cholelithiasis, gallbladder wall thickening or biliary tract dilation
CT chest 03/23/23: left upper lobe scar subpleural, 5 cm report, no change compared to prior imaging. Minimal basilar scar and apical scar. No obvious adenopathy�������
Abd CT 04/20/22: lung bases are clear�������
CT chest 02/24/22: slight decrease in left upper lobe consolidation, likely radiation changes. No evidence of recurrent dissease. Mucous plugging left upper lobe, bronchiectasis 7 mm. There is also 8 mm right upper lobe scar image #10. No
adenopathy�������
CXR 04/17/21: no acute findings�������
CT chest 02/22/21: 4 cm left upper lobe lesion, appears to be new, superior and anterior to original 1.3 cm lesion image #26, stable. 8 mm right upper lobe lesion image #13, stable, likely subpleural scar (my rev). No adenopathy. 1.9 cm left renal
lesion, incompletely imaged, per report�������
CT chest 11/23/20: left upper lobe nodule image #8 (1.1 cm), grossly stable. Left upper lobe nodule image #24 (5.6 mm), increased from 4 mm with atypical appearance. 9 mm right upper lobe nodule Ms. #8, stable. no significant adenopathy.�������PET
scan 08/16/20: left upper lobe nodule, max SUV 6.0. No other PET activity noted�������
CT chest 07/19/20: 1.1 cm left apical nodule, increased when compared to 07/10/19 from 8 mm. 1 cm subpleural nodule right lung apical, decrease in size when compared to prior study.������
�CT chest 07/10/19: 1.7 cm right apical nodule, left apical 8mm nodule. Per report, unchanged. Per my review, there may be slight increase in size when compared to 2018 in 2017 of left upper lobe nodule. It does appear to be near a terminal
bronchiole. Difficult to determine whether this may be mucous plugging/retention.�������
CXR 03/19/19: right upper lobe nodule, appears chronic appearing per chest x-ray�������
CT chest 06/17/2018 reveals stable right upper lobe nodule 1.8cm. It is a mixed fluid/soft tissue density suggesting a benign process possibly hamartoma. This is unchanged compared to CT chest from 09/17/2017. It is new when compared to chest x-ray
from 2008.
CT chest 12/17/17 reveals 1.9 cm right upper lobe nodule, of which characterizations suggest fluid/fat (hamartoma?).
PET scan 10/05/17 reveals no evidence of PET avidity. CT chest 09/17/17 reveals pleural-based lobulated nodule measuring 1.4 cm, image #10 in the right upper lobe. Density of the lesion suggests fat density. No obvious mediastinal or hilar
adenopathy noted. There is evidence of right renal cyst, right nonobstructing renal stone 6 mm.
Chest x-ray from 09/10/17 reveals right upper lobe nodule. Abdominal CT scan from 07/03/17 reveals clear lung bases. She has renal stones which are nonobstructing. She may have some fullness in the left adrenal gland per report (hyperplasia versus
adenoma).
Chest x-ray from 02/03/13 reveals right middle lobe infiltrate. Unclear whether there may been a right upper lobe nodule behind the rib at that time. Not reported.
Echocardiogram 11/20/2024-EF 55-60%, mild aortic stenosis
PFT 07/12/23: FVC 2.98/109%, FEV1 1.93/95%, ratio 65. TLC 4.40/89%, DLCO 12.85/63%. When compared to 2019, this is stable
Subjective Dataa
Subjective Data
Date of Service:
Date of Service: November 21, 2024
Chief Complaint: Passport Support Manager Follow Up and Pulmonary Follow Up
Subjective:
Alert, slightly confused, patient knew the date and month who the president was, does not complain of shortness of breath, chest pain, abdominal pain
Review of Systems
General: Other
Objective Data
Data Reviewed
Vital Signs / I&O / Oxygen:
Vital Signs
Temp Pulse Resp BP Pulse Ox
98.2 F 115 20 144/96 96
11/21/24 04:00 11/21/24 07:15 11/21/24 07:15 11/21/24 06:00 11/20/24 20:00
Intake and Output
11/20/24 11/21/24 11/22/24
06:59 06:59 06:59
Intake Total 920 / 1073 3397.5 / 3472.5 75 / 75
Output Total 875 / 1275 400 / 400
Balance 920 / 1073 2522.5 / 2197.5 -325 / -325
SaO2 96
Nasal Cannula flow liters per 3
minute
Physical Exam
General: Respiratory Distress (n) and Comfortable
HEENT: Normocephalic, Anicteric and Moist Mucous Membranes
Cardiovascular: Irregular Rhythm
Respiratory: Wheeze (n), Crackles (Rare basilar), Rhonchi (n), Non-Labored Respirations, Accessory Resp Muscle Use (n) and Stridor (n)
GI: Soft, Non Distended and Non Tender
Neurology: Awake, Alert, No Motor Deficits and Other (Somewhat lethargic)
Skin: Warm, Good Color, Cyanosis (n), Jaundice and Rash
Labs/Micro/Reports
Lab Data
11/21/24 03:16
11/21/24 03:16
Microbiology
11/19/24 22:01 Blood/Venous Blood Culture - Preliminary
No Growth in 24 hours- Final report to follow
11/19/24 20:24 Blood/Venous Blood Culture - Preliminary
No Growth in 24 hours- Final report to follow
11/19/24 22:01 Nasal Swab Influenza Types A & B (ABBEY) - Final
Influenza A Positive, NAAT
--- NOTE | 2024-11-21 07:44 | PTCARENOTE ---
Pt rec'd from night RN Aox1, confused to place and time. essential tremors from baseline. weak but palpable pulses. +1 bilateral LE Edema.hr 90s-low 100s. afebrile. RA POX mid 90s. productive occasional cough. round abdomen, hypo BS. urinates on
bedpan. 2 person assist. Pt pulled out left hand PIV overnight, bilat AC's reamin. AM labs noted. Pt has been off insulin gtt since 21:00 last shift, episode of hypoglycemia this am, treated per protocol -see documentation. safe environment
maintained. bed alarm on. Breakfast ordered for patient.
--- NOTE | 2024-11-21 07:49 | W.PN.CD ---
Today's Communication / Plan
-
Continue to evaluate causes of elevated lfts as per GI
continue to monitor rates closely, for now hold rate agents
continue to hold eliquis
Clinically a very high risk situation
CCT 31
Impression / Plan
-
Sepsis:
-diagnosis is threat to life
-s/p 2L fluid
-patient with flu A- getting Tamiflu and PNA (getting IV abx)
Elevate LFTs with encephalopathy
-continue to rise
-?linked to sepsis but bp never persistently low
-was on DOAC so portal vein thrombosis unlikely
-?tylenol?
-GI now following
AFIB with RVR:
-patient has known permanent AFIB. In the setting of acute illness and not getting daily propranolol, rate is elevated but reasonable
-propranolol not the best choice with abnormal liver function
-Eliquis held with anemia and abnormal liver tests. Denies any clinical bleeding. Some likely dilutional. Monitor closely.
Abnormal troponin: 0.045, 0.51
-acute, non-ischemic myocardial injury in setting of acute illness as above
-echo normal EF
Volume overload:
-Echo, BNP as below.
-This is in setting of sepsis s/p 2 L IVF.
-Would not recommend diuresis at this time.
sUJECTIVE:
NOT RELIABLE HISTORIAN DUE TO ENCEPHALOPATHY, BUT THINKS SHE FEELS BETTER.
TTE: 11/21/24 CONCLUSIONS
Normal biventricular size and systolic function without regional wall motion
abnormality.
Abnormal (paradoxical) septal motion consistent with right ventricular (RV)
volume overload.
Mild aortic stenosis and trace aortic regurgitation.
Moderate tricuspid regurgitation. Moderate pulmonary hypertension.
Compared to the prior on 08/05/2024, there is now signs of RV overload and
pulmonary hypertension
Physical Exam
Vital Signs/Labs
Vital Signs
Temp Pulse Resp BP Pulse Ox
98.9 F 115 20 144/96 96
11/21/24 07:47 11/21/24 07:15 11/21/24 07:15 11/21/24 06:00 11/20/24 20:00
11/20/24 11/21/24 11/22/24
06:59 06:59 06:59
Actual Weight 59.2 kg 60.9 kg
11/21/24 03:16
11/21/24 03:16
PT 35.5 Sec (11.4-14.6) H 11/20/24 04:12
INR 3.52 11/20/24 04:12
APTT 34.0 Sec (23.4-35.0) 11/19/24 19:35
Magnesium 1.9 mg/dl (1.6-2.3) 11/21/24 03:16
11/19/24
20:06
Fcq-G-Icrrmtcusgg Pept 10091
LAB Results
11/19/24 11/20/24 11/20/24
19:35 00:22 04:12
Troponin I 0.017 0.037 H* D 0.042 H*
11/20/24 11/20/24
11:01 13:38
Troponin I 0.045 H* 0.051 H*
Physical Exam
Constitutional: No acute distress and Comfortable
Cardiovascular: Pedal edema is absent and Rhythm/rate is irregular
Respiratory: Respiratory effort normal and Wheeze Present (diffusely)
GI: Soft, Distention absent and Non tender
Neuro/Psych: Alert and Oriented (not oriented to place or time)
Data Reviewed
-
Date of Service: November 21, 2024
Medical Decision Making: Review of Case with other Provider (Dr Gomez continue to monitor rates, ICU nurse Disa call if rates persistantly >130)
--- NOTE | 2024-11-21 08:15 | PN.DE.MGMTRT ---
Insulin Management
- -
11/21/2024: Diabetes Management follow up
79 year old female with recent h/o A-fib on Eliquis, HTN, HLD, h/o lung and breast cancers and T2DM, who presents with sepsis, anion gap metabolic acidosis and DKA. GAP was 24--> initiated on DKA protocol.
Pt is awake, alert, a bit confused, MS waxes and wanes, She is able to participate in full detailed discussion regarding diabetes care.
Transitioned off insulin infusion at bedtime yesterday to SQ insulin. Received Lantus 15 units @ 20:00.
Noted for an episode of Hypoglycemia as low as 46 early tis morning, states she was not symptomatic, treated with Dextrose IVF.
She was started on a diet and is tolerating it well. Will stop Lantus and resume OP glipizide only at increased dose of 2.5mg BID
Cont to hold Metformin given MODESTA with Cr of 1.5. eGFR 35.45
Stop IVF with Dextrose, pt is eating and tolerating PO intake. Unable to provide glucose monitor instructions at this time due to poor mental status.
Will follow up on Sunday if pt remains in the hospital, otherwise, will arrange for pt to come to the office for diabetes education.
Diabetes History
- -
Type of Diabetes: 2
Pre-Admission Diabetes Regimen
11/20/24 11/20/24 11/20/24
07:43 11:01 14:57
Creatinine 1.5 H 1.6 H 1.6 H
11/20/24 11/20/24 11/20/24
16:00 18:39 20:00
Creatinine Cancelled 1.5 H Cancelled
11/21/24
03:16
Creatinine 1.5 H
Lab Results
Hemoglobin A1c 7.5 % (4.0-5.6) H 11/20/24 00:22
Insulin Pump Settings
IP Diabetes Regimen
11/20/24 11/20/24 11/20/24
07:43 10:02 11:00
Glucose 171 H
POC Glucose 91 78
11/20/24 11/20/24 11/20/24
11:01 11:53 14:25
Glucose 67 L
POC Glucose 90 144 H
11/20/24 11/20/24 11/20/24
14:57 15:31 16:00
Glucose 154 H Cancelled
POC Glucose 160 H
11/20/24 11/20/24 11/20/24
16:30 17:34 18:38
Glucose
POC Glucose 156 H 146 H 142 H
11/20/24 11/20/24 11/20/24
18:39 19:58 20:00
Glucose 144 H Cancelled
POC Glucose 151 H
11/20/24 11/21/24 11/21/24
21:49 03:16 04:29
Glucose 41 L*
POC Glucose 135 H 49 L*
11/21/24 11/21/24
04:51 07:03
Glucose
POC Glucose 121 H 107 H
Patient Education
[2024-11-21 08:53] LABS: Troponin I 0.061 ng/ml
[2024-11-21] MEDS: NSS (PRESERVATIVE FREE) 10 ML IV (09:09)
[2024-11-21] MEDS: PROTONIX IV 40 MG IV (09:09)
[2024-11-21] MEDS: TAMIFLU 30 MG PO (09:10)
[2024-11-21] MEDS: VIBRAMYCIN 100 MG PO ×2 (09:10→20:10)
--- NOTE | 2024-11-21 09:16 | W.PN.GI.CBS2 ---
Addendum entered and electronically signed by Apolinar Wallace MD 11/21/24 16:48:
I saw and examined the patient.
The PRESIDENT + PUBLISHER or PA's note was reviewed and I agree with the note.
Comment: 79-year-old female past medical history of breast cancer, lung cancer, A-fib on Eliquis admitted with shortness of breath found to have flu and pneumonia complicated by DKA with metabolic acidosis and GI was consulted for elevated
transaminases as high in the . Of note, in September 2024 showed normal LFTs. Doppler ultrasound was negative. She does have elevated coags which are improving today. There was some concern of mental status change and hypoglycemia in the
morning. I reviewed with hepatology. They felt which I agree with this is most likely ischemic/shock liver given the acute rise of liver enzymes in the setting of infection. Her blood pressure recorded was as low as systolic 80s. However, given
coagulopathy, confusion, hypoglycemia, rising LFTs now as high as 4000 plan to start N-acetylcysteine drip. Continue to monitor liver enzymes. Consider vitamin K if INR persistently elevated. Discussed with primary team. Methotrexate level was
checked and was low.
Of note, needs outpatient follow-up for large polyp with Dr. Cobos.
Original Note:
Today's Communication / Plan
-
Etiology of rise in LFT's with coagulopathy with noted mild change in mental status this AM now improved and hypoglycemia may be multifactorial-underlying sepsis, infection and picture suggesting shock liver though blood pressure low of 80's, vs
acute liver injury- DILI- No recent new medication which are hepatotoxic but has been on chronic methotrexate
No significant history of alcohol use
hepatitis B/C neg
Avoid low flow state, keep MAP>65
Closely monitor LFTs/ INR-- INR pending this am
neuro checks Q 2 hours
check methotrexate level-- no signs of oral ulceration or mucositis noted has been on folate replacement
will add NAC
trend CBC with some drop in hbg since admission
D dimer, fibrogen added per medical team
pending AM INR consider holding SQ heparin if remains elevated
rx per ICU team for flu/PNA
Eliquis remains on hold - cards following
Dr. Wallace reviewed with hepatology at [place]
OP follow up for polyp with piecemeal resection
Assessment / Plan
-
79-year-old female with history of breast cancer status postlumpectomy, stage I lung cancer s/p radiation, arthritis on chronic Methotrexate/leucovorin, hypertension, diabetes, positive Cologuard and colonoscopy in 2022 with piecemeal resection of
large descending colon sessile serrated polyp atrial fibrillation on Eliquis presenting with shortness of breath, noted to have influenza A and pneumonia (pt given Tamiflu and antibiotics (initially Zosyn then ceftriaxone and doxycycline for
pneumonia)., also noted to have DKA with metabolic acidosis, currently in the ICU and GI consult was called in for elevated transaminases. Previous LFTs were within normal limits September 2024, on admission, total bilirubin was 1.2 with AST of 566
and ALT of 258 and alkaline phosphatase of 137 and today AST is elevated at 2839 and ALT of 1208. Bilirubin and alkaline phosphatase within normal range. She had CT scan of the abdomen and pelvis without contrast that showed prominent gallbladder
wall thickening, subtle increased attenuation of sludge of concentrated bile in the lumen without gallstones. Subsequent abdominal ultrasound with Doppler unremarkable. She does take at least 4 to 6 tablets of Tylenol daily adult serum Tylenol
level was less than 10. No history of underlying liver disease.
Laboratory Tests
10/09/23 09/08/24 11/19/24
08:22 10:07 19:35
PT 24.9 H
INR 2.20
APTT 34.0
Direct Bilirubin 0.5 H
Total Bilirubin
AST 23
ALT 22
Alkaline Phosphatase 72
11/19/24 11/20/24 11/21/24
20:24 04:12 03:16
PT 35.5 H
INR 3.52
APTT
Direct Bilirubin 0.7 H 0.3
Total Bilirubin 0.6
AST 566 H* 2892 H* 4079 H*
ALT 258 H 1208 H* 1635 H*
Alkaline Phosphatase 137 H 97 90
11/21/24
07:49
PT Pending
INR Pending
APTT Pending
Direct Bilirubin
Total Bilirubin
AST
ALT
Alkaline Phosphatase
.
-Significantly elevated transaminases with normal total bilirubin and alkaline phosphatase, abdominal imaging showing normal liver
-marked coagulopathy
-hypoglycemia with concern for DKA/metabolic acidosis on admission
-anemia
-mild confusion now improving
-flu +/PNA with sepsis
-elevated troponin
-chronic tremors
- atrial fibrillation on Eliquis prior to admission and noted with RVR on admission
other med problems:
-history of breast cancer status postlumpectomy
-stage I lung cancer s/p radiation
-arthritis on chronic Methotrexate/leucovorin
-hypertension,
- diabetes
-CHF
-positive Cologuard and colonoscopy in 2022 with piecemeal resection of large descending colon sessile serrated polyp
PLAN:
Etiology of rise in LFT's with coagulopathy with noted mild change in mental status this AM now improved and hypoglycemia may be multifactorial-underlying sepsis, infection and picture suggesting shock liver though blood pressure low of 80's, vs
acute liver injury- DILI- No recent new medication which are hepatotoxic but has been on chronic methotrexate
No significant history of alcohol use
hepatitis B/C neg
Avoid low flow state, keep MAP>65
Closely monitor LFTs/ INR-- INR pending this am
neuro checks Q 2 hours
check methotrexate level-- no signs of oral ulceration or mucositis noted has been on folate replacement
will add NAC
trend CBC with some drop in hbg since admission
D dimer, fibrogen added per medical team
pending AM INR consider holding SQ heparin if remains elevated
rx per ICU team for flu/PNA
Patricia remains on hold - cards following
Dr. Wallace reviewed with hepatology at [place]
OP follow up for polyp with piecemeal resection
Subjective
Subjective
Date of Service: November 21, 2024
no stools on 1800 ADA diet, some confusion this am but now remains oriented x 3 , noted hypoglycemia this am
Objective
Data Reviewed
Laboratory Data:
Laboratory Results
11/21/24 03:16
11/21/24 03:16
Laboratory Results
PT 35.5 Sec (11.4-14.6) H 11/20/24 04:12
INR 3.52 11/20/24 04:12
APTT 34.0 Sec (23.4-35.0) 11/19/24 19:35
Phosphorus 3.3 mg/dl (2.5-4.5) 11/20/24 04:12
Magnesium 1.9 mg/dl (1.6-2.3) 11/21/24 03:16
Total Bilirubin 0.7 mg/dl (0.2-1.3) 11/21/24 03:16
AST 4079 U/L (14-36) H* 11/21/24 03:16
ALT 1635 U/L (0-35) H* 11/21/24 03:16
Alkaline Phosphatase 90 U/L (38-126) 11/21/24 03:16
Vital Signs and I&O:
Vital Signs
Temp Pulse Resp BP Pulse Ox
98.9 F 122 35 134/85 96
11/21/24 07:47 11/21/24 07:46 11/21/24 07:46 11/21/24 07:46 11/20/24 20:00
I&O
11/20/24 11/21/24 11/22/24
06:59 06:59 06:59
Intake Total 920 / 1073 3397.5 / 3472.5 150 / 150
Output Total 875 / 1275 400 / 400
Balance 920 / 1073 2522.5 / 2197.5 -250 / -250
Physical Exam
Physical Exam
HEENT: Anicteric and Moist mucous membranes (no oral ulcerations noted )
Cardiology: Other (tachy)
Pulmonary: Clear
GI: Soft, Non Distended and Non Tender
Extremities: No Edema
Neuro: Non Focal (noted hand tremors-- per patient have been chronic for years )
--- NOTE | 2024-11-21 09:55 | PTCARENOTE ---
Per Ermisa Douse- IVF stopped at this time. Dr. Nolen and residents in room - called and updated.
[2024-11-21] MEDS: CLOBETASOL PROPIONATE 0.05% OINTMENT 1 APPLIC TOPICAL (10:02)
[2024-11-21] MEDS: ACETADOTE 245.7 MG IV (10:31)
--- NOTE | 2024-11-21 10:35 | PTCARENOTE ---
Acetylcysteine ordered-Bag #1 hung at this time.
[2024-11-21 10:39] LABS: Hematocrit 25.6 % (37.0-47.0); Hemoglobin 8.2 g/dL (12.0-16.0)
[2024-11-21 10:50] LABS: INR 2.42; PT 26.4 Sec (11.4-14.6)
[2024-11-21 10:51] LABS: APTT 55.5 Sec (23.4-35.0); Fibrinogen 278 MG/DL (199-459)
[2024-11-21 10:52] LABS: INR 2.31; PT 25.4 Sec (11.4-14.6)
[2024-11-21 11:01] LABS: D-Dimer 3.94 ug/mlFEU (0.00-0.50)
[2024-11-21 11:10] LABS: Troponin I 0.051 ng/ml
[2024-11-21] MEDS: ACETADOTE 515.2 MG IV (11:43)
--- NOTE | 2024-11-21 11:48 | PTCARENOTE ---
Methotrexate level drawn and sent. 2nd bag of Acetylcysteine hung.
[2024-11-21] MEDS: NOVOLOG FLEXPEN-LOW RESISTANCE 1 UNITS SC (12:32)
[2024-11-21] MEDS: ROCEPHIN 1000 MG IV (12:32)
[2024-11-21] MEDS: STERILE WATER FOR INJECTION 10 ML IV (12:32)
[2024-11-21] MEDS: FLUSH (NSS) IV ×2 (12:33)
[2024-11-21 12:39] LABS: Glucose - Point of Care 151 mg/dl (70-99)
--- NOTE | 2024-11-21 13:23 | PN.CDI ---
CDI
- -
CDI:
Physician Documentation Request
Admit Date: 11/19/24 22:06
Dear Doctor Marvin,
Patient admitted with sepsis , DKA, MODESTA
GI consult states '.... hypoglycemia may be multifactorial-underlying sepsis, infection and picture suggesting shock liver though blood pressure low of 80's, vs acute liver injury...'
LA on admission 10.3
Please clarify which of the following most accurately describes the status of the patient's infection:
Severe Sepsis
- Sepsis with associated acute organ dysfunction, such as renal or respiratory failure
Sepsis only
Other
Use of terms such as suspected, likely, concern for, or probable (associated with a specific diagnosis that is being evaluated, monitored, or treated as if it exists) are acceptable and can be coded in the inpatient setting, when documented at the
time of discharge.
Thank you,
Kaila Lemos RN, BSN
CDI Specialist
tiger text
Please use your independent medical judgment in providing your response.
[2024-11-21 13:29] LABS: LDH 4262 U/L (120-246)
--- NOTE | 2024-11-21 13:37 | PTCARENOTE ---
Plan of care discussed in grand rounds with care team. Pt consented for blood with witnessing by phone. Labs and medications administered as ordered, see flowsheet for documentation. Pt has remained occasionally forgetful but has become more
oriented, however she complains of 'feeling terrible' and indicates generalized all over discomfort. HR has increased to 1 teens to 130 range, in afib per tele, Dr. Wu updated, ART SPECIALIST Megan at bedside to assess. Orders rec'd for dilt gtt-see
flowsheet for complete documentation. Pt is voiding on bedpan appropriately, declines lunch due to feeling poorly. Bed alarm remains armed for safety.
[2024-11-21] MEDS: CARDIZEM 125 IV (14:09)
--- NOTE | 2024-11-21 14:19 | PTCARENOTE ---
Addendum entered by Masha López RN 11/21/24 15:24:
dilt gtt titrated to 10 mg/hr for hr in 120-130s per protocol, see worklist.
Original Note:
Diltiazem gtt hung at 14:15 at 5 mg/hr. HR 120-140 range in afib on tele.
[2024-11-21] MEDS: MOTRIN 200 MG PO (14:29)
--- NOTE | 2024-11-21 15:35 | CM ---
Patient seen at bedside.
PT rec SNF
Options discussed - [facility] SNF referral added
Spoke to
PLAN: SNF, pending bed availability, when medically stable
[2024-11-21] MEDS: ACETADOTE 1042.6 MG IV (15:38)
[2024-11-21] MEDS: GLUCOTROL 2.5 MG PO (17:16)
[2024-11-21] MEDS: NOVOLOG FLEXPEN-LOW RESISTANCE SC (17:24)
[2024-11-21 17:25] LABS: Glucose - Point of Care 134 mg/dl (70-99)
--- NOTE | 2024-11-21 21:43 | PTCARENOTE ---
Pt AOX3, forgetful at times, mentation waxes and weans, Controlled fib on monitor. Remains on Diltiazem 10mg/10ml per protocol and Acetylcysteine gtt continued. Pt is on room air, sats 93-95%, VÁSQUEZ, scattered crackles throughout lung shaffer. Bed
alarm on. Pt offers no complaints at this time
[2024-11-21 22:24] LABS: Glucose - Point of Care 208 mg/dl (70-99)
[2024-11-21] MEDS: NOVOLOG FLEXPEN 2 UNITS SC (23:09)
[2024-11-22] VITALS (23 sets, daily range): BP systolic 92–146; BP diastolic 36–108; PULSE 86; BMI 22.9
[2024-11-22] MEDS: HEPARIN 5000 UNITS SC ×3 (00:24→21:32)
[2024-11-22] MEDS: CARDIZEM 125 IV ×2 (03:43→14:13)
[2024-11-22 03:52] LABS: Hematocrit 23.7 % (37.0-47.0); Hemoglobin 7.8 g/dL (12.0-16.0); Mean Corp Hgb Conc. 32.9 g/dL (33.0-37.0); Mean Corpuscular Hgb 29.7 pg (27.0-31.0); Mean Corpuscular Volume 90.1 fL (81.0-99.0); Mean Platelet Volume 9.9 fL (7.4-10.4); Platelet Count 122 10^3/uL (130-400); Red Blood Cell Count 2.63 10^6/uL (4.20-5.40); Red Cell Dist. Width 15.6 % (11.5-14.5); White Blood Cell Count 6.7 10^3/uL (4.8-10.8)
[2024-11-22 03:59] LABS: INR 2.78; PT 29.3 Sec (11.4-14.6)
[2024-11-22 04:18] LABS: Albumin 2.9 g/dl (3.5-5.0); Alkaline Phosphatase 110 U/L (38-126); Blood Urea Nitrogen 28 mg/dl (7-17); Carbon Dioxide 16 mmol/L (22-30); Chloride 107 mmol/L (98-107); Estimated Creatinine Clearance 36 ml/min; Glucose 169 mg/dl (70-99); Potassium 3.6 mmol/L (3.5-5.1); Sodium 137 mmol/L (135-145); Total Bilirubin 0.7 mg/dl (0.2-1.3); Total Protein 5.2 g/dl (6.3-8.2); eGFR 51.43
[2024-11-22 05:17] LABS: ALT (SGPT) 3676 U/L (0-35); AST (SGOT) > 7500 U/L (14-36)
[2024-11-22 07:55] LABS: Glucose - Point of Care 183 mg/dl (70-99)
[2024-11-22] MEDS: NOVOLOG FLEXPEN-LOW RESISTANCE 1 UNITS SC ×2 (07:55→12:03)
[2024-11-22] MEDS: GLUCOTROL 2.5 MG PO ×2 (07:56→17:32)
[2024-11-22] MEDS: PROTONIX 40 MG PO (07:57)
[2024-11-22] MEDS: TAMIFLU 30 MG PO (07:57)
[2024-11-22] MEDS: VIBRAMYCIN 100 MG PO ×2 (07:57→21:32)
--- NOTE | 2024-11-22 08:09 | W.PN.HOSP.TC ---
Today's Communication/Plan
-
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
dose meds as per renal/liver functions
despite wheezing, would hold steroids given confusion/encephalopathy--ammonia level WNL
finish Tamiflu
cont PNA treatments (ceftriaxone/doxy)
Assessment / Plan
Assessment / Plan
Pt is a 79 year old female
confusion--seems worse today--pulled out IV--LFTs worsening (AST > 7500, ALT 3676, LDH 4262, NH3 < 9)--suspect metabolic encephalopathy--follow
Severe Sepsis--no pressor requirements--s/p IVF bolus for episode of hypotension--likely source is CAP secondary from influenza A positivity--less likely acute cholecystitis (US neg)--blood culture neg, urine culture with mixed jonathan (contaminant)
cont rocephin/doxy--finish tamiflu (day 4 of 5)
Anion gap metabolic acidosis--multiple contributors--DKA (does have positive ketones) resolved, lactic acidosis from sepsis/metformin resolved, diarrhea with bicarbonate loss resolved--off insulin drip---stop IVF with bicarb cont
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
transaminitis--likely from sepsis/'shock liver'--episodes of hypotension BUT not shock per se (no documented hypotension requiring pressors) --apprec GI--US negative, hep panel negative--holding eliquis--holding tylenol--level negative--NAC
started--adjust meds as needed
Permanent A-fib--rates not controlled--pt is s/p CV 09/16/24--Eliquis held for liver function--troponin elevation given illness not significant--likely nonischemic myocardial injury
Hyperkalemia/hypomagnesemia/ pseudohyponatremia--noted, treat as needed
anemia likely of chronic disease, exacerbated by IVF and dilutional drop--appears to have some element of iron deficiency--transfuse if HGB < 7--labs not entirely consistent with DIC (elevated coags can be seen with liver failure, D-dimer high but
fibrinogen WNL)--hemolysis still possible with drop in HGB--LDH increased--haptoglobin pending--consented for blood if needs
MODESTA on CKD stage 3 presumed--Creatinine 1.5 (baseline 1.0)--now 1.1--resolved--Avoid nephrotoxic agents, follow BMP--renal dose meds
Type 2 Qzy-dqclasa-hwhltfluk diabetes mellitus---Hold metformin given lactic acidosis--Basal bolus/sliding scale insulin
Essential Hypertension--Home antihypertensives held while septic
Hyperlipidemia--Hold statin given transaminitis
DVT prophy--Subcu heparin
CODE STATUS--Full code
Anticipated Discharge: > 48 hours
Subjective/Interval History
-
Date of Service: November 22, 2024
pt without c/o--very confused this AM--pulled out IV this AM per nursing
Objective Data
-
Labs:
Laboratory Results
11/22/24
03:32
WBC 6.7
Hgb 7.8 L
Hct 23.7 L
Plt Count 122 L
PT 29.3 H
INR 2.78
Sodium 137
Potassium 3.6
Chloride 107
Carbon Dioxide 16 L
BUN 28 H
Creatinine 1.1 H
Glucose 169 H
Calcium 8.0 L
Total Bilirubin 0.7
AST > 7500 H*
ALT 3676 H*
Alkaline Phosphatase 110
Vital Signs:
max temp for 24 hours
11/21/24
14:26
Temp 100.9 F H
Vital Signs
Temp Pulse Resp BP Pulse Ox
98.5 F 104 22 122/63 95
11/22/24 03:58 11/22/24 05:00 11/22/24 05:00 11/22/24 05:00 11/21/24 21:36
I&O
11/21/24 11/22/24 11/23/24
06:59 06:59 06:59
Intake Total 3397.5 / 3472.5 2031.7 / 2085.1 106.8 / 106.8
Output Total 875 / 1275 2200 / 2200 400 / 400
Balance 2522.5 / 2197.5 -168.3 / -114.9 -293.2 / -293.2
Review of Systems
-
Unable to obtain full review of systems at this time due to: Other (confused)
All other systems: Reviewed and negative
Physical Exam
-
General: Other (chronically frail appearing female)
HEENT: Normocephalic and Atraumatic
Respiratory: Wheezes
Cardiac: Irregular Rhythm
GI: Soft, Nontender, Nondistended and Normal Bowel Sounds
Musculoskeletal: No Clubbing, No Cyanosis and No Edema
Skin: Warm and Dry
Neuro: Awake
Psych: Confused
--- NOTE | 2024-11-22 08:44 | W.PN.CD ---
Today's Communication / Plan
-
continue IV diltiazem gtt for rates
Impression / Plan
-
Sepsis:
-diagnosis is threat to life
-s/p 2L fluid
-patient with flu A- getting Tamiflu and PNA (getting IV abx)
Elevate LFTs with encephalopathy
-continue to rise
-?linked to sepsis but bp never persistently low
-was on DOAC so portal vein thrombosis unlikely
-?tylenol?
-GI now following n-acetylcysteine
AFIB with RVR:
-patient has known permanent AFIB. In the setting of acute illness and not getting daily propranolol,
-rates were persistently elevated so started on diltiazem gtt, will continue intensive monitoring
-Eliquis held with anemia and abnormal liver tests. Stable
Abnormal troponin: 0.045, 0.51
-acute, non-ischemic myocardial injury in setting of acute illness as above
-echo normal EF
Volume overload:
-Echo, BNP as below.
-This is in setting of sepsis s/p 2 L IVF.
-Would not recommend diuresis at this time.
Overall prognosis is gaurded, LFTs continue to rise, rates now undercontrol.
SUJECTIVE:
NOT RELIABLE HISTORIAN DUE TO ENCEPHALOPATHY, She is fixated on her IV falling out and bleeding, cannot redirect to answer additional questions.
TTE: 11/21/24 CONCLUSIONS
Normal biventricular size and systolic function without regional wall motion
abnormality.
Abnormal (paradoxical) septal motion consistent with right ventricular (RV)
volume overload.
Mild aortic stenosis and trace aortic regurgitation.
Moderate tricuspid regurgitation. Moderate pulmonary hypertension.
Compared to the prior on 08/05/2024, there is now signs of RV overload and
pulmonary hypertension
CCT spent in her care was 30 minutes
Physical Exam
Vital Signs/Labs
Vital Signs
Temp Pulse Resp BP Pulse Ox
98.5 F 97 20 139/88 95
11/22/24 03:58 11/22/24 08:00 11/22/24 08:00 11/22/24 08:00 11/22/24 08:00
11/21/24 11/22/24 11/23/24
06:59 06:59 06:59
Actual Weight 60.9 kg 60.4 kg
11/22/24 03:32
11/22/24 03:32
PT 29.3 Sec (11.4-14.6) H 11/22/24 03:32
INR 2.78 11/22/24 03:32
APTT 55.5 Sec (23.4-35.0) H 11/21/24 10:24
Magnesium 1.9 mg/dl (1.6-2.3) 11/21/24 03:16
11/19/24
20:06
Coa-Y-Chmqzfsfetu Pept 18487
LAB Results
11/19/24 11/20/24 11/20/24
19:35 00:22 04:12
Troponin I 0.017 0.037 H* D 0.042 H*
11/20/24 11/20/24 11/21/24
11:01 13:38 05:42
Troponin I 0.045 H* 0.051 H* 0.061 H*
11/21/24 11/21/24
07:49 10:24
Troponin I Cancelled 0.051 H*
Physical Exam
Constitutional: No acute distress
Cardiovascular: Pedal edema is absent, JVD pressure is normal and Rhythm/rate is irregular
Respiratory: Respiratory effort normal, Lungs clear to auscul., Wheeze Absent and Crackles Absent
GI: Soft and Distention absent
Neuro/Psych: Alert and Oriented (not oriented)
Data Reviewed
-
Date of Service: November 22, 2024
Medical Decision Making: Review of Case with other Provider (Dr Nolen and Ammy(ICU nursing)continue dilt ggt)
EKG: Other (tele rate control fib after dilt gtt started)
--- NOTE | 2024-11-22 09:43 | PTCARENOTE ---
Rec'd pt at 0715, upon walking into room pt had removed AMY IV and linens were covered in blood. IV site still bleeding, pressure had to be held ~10min for it to stop bleeding. CHG bath and complete linen change done. Pt with confused conversation,
follows commands and GUTIERREZ with equal strength. Monitor Afib 90-110's, Cardizem infusing at 10mg/hr. New IV site placed in left wrist, Acetylcysteine infusing per ordered rate. Lungs dim, sct exp wheezes. Occas nonproductive cough. +BS, abd soft/nt.
Vdg yellow urine on bedpan. IMU level of care.
[2024-11-22] MEDS: FLUSH (NSS) IV ×2 (11:22)
[2024-11-22] MEDS: ROCEPHIN 1000 MG IV (11:26)
[2024-11-22] MEDS: STERILE WATER FOR INJECTION 10 ML IV (11:26)
[2024-11-22 11:56] LABS: Glucose - Point of Care 178 mg/dl (70-99)
--- NOTE | 2024-11-22 11:59 | W.PN.GI.CBS2 ---
Today's Communication / Plan
-
trend lfts, cont nac gtt
Assessment / Plan
-
79-year-old female past medical history of breast cancer, lung cancer, A-fib on Eliquis admitted with shortness of breath found to have flu and pneumonia complicated by DKA with metabolic acidosis and GI was consulted for elevated transaminases as
high in the . Of note, in September 2024 showed normal LFTs. Doppler ultrasound was negative. She does have elevated coags which have risen today. There was some concern of mental status change and hypoglycemia yesterday- worsening mental
status today. I reviewed with hepatology again today. They felt which I agree with this is most likely ischemic/shock liver and influenza related given the acute rise of liver enzymes in the setting of infection (shock absorption floor layer did see some case
reports of this). Her blood pressure recorded was as low as systolic 80s. Continue NAC gtt. Continue to monitor liver enzymes. Reassuring ammonia level normal making this unlikely to be liver related; confusion more likely related to confusion.
Discussed with primary team and cardiology. I also d/w ID informally - we have 2 cases of flu A with LFTs in 7000s - plan to send out subtype of flu to see if there is a correlation.
Of note, needs outpatient follow-up for large polyp with Dr. Cobos.
Subjective
Subjective
Date of Service: November 22, 2024
reviewed notes from hospitalist pt was more confused this am when I saw her no overt confusion noted
Objective
Data Reviewed
Laboratory Data:
Laboratory Results
11/22/24 03:32
11/22/24 03:32
Laboratory Results
PT 29.3 Sec (11.4-14.6) H 11/22/24 03:32
INR 2.78 11/22/24 03:32
APTT 55.5 Sec (23.4-35.0) H 11/21/24 10:24
Phosphorus 3.3 mg/dl (2.5-4.5) 11/20/24 04:12
Magnesium 1.9 mg/dl (1.6-2.3) 11/21/24 03:16
Total Bilirubin 0.7 mg/dl (0.2-1.3) 11/22/24 03:32
AST > 7500 U/L (14-36) H* 11/22/24 03:32
ALT 3676 U/L (0-35) H* 11/22/24 03:32
Alkaline Phosphatase 110 U/L (38-126) 11/22/24 03:32
Vital Signs and I&O:
Vital Signs
Temp Pulse Resp BP Pulse Ox
98.6 F 78 20 92/55 95
11/22/24 08:00 11/22/24 10:00 11/22/24 10:00 11/22/24 10:00 11/22/24 08:00
I&O
11/21/24 11/22/24 11/23/24
06:59 06:59 06:59
Intake Total 3397.5 / 3472.5 2031.7 / 2085.1 213.6 / 213.6
Output Total 875 / 1275 2200 / 2200 700 / 700
Balance 2522.5 / 2197.5 -168.3 / -114.9 -486.4 / -486.4
Physical Exam
Physical Exam
HEENT: Anicteric
Cardiology: Normal Sinus Rhythm
Pulmonary: Clear
GI: Non Distended and Non Tender
[2024-11-22] MEDS: ACETADOTE 1042.6 MG IV (15:51)
[2024-11-22 17:31] LABS: Glucose - Point of Care 210 mg/dl (70-99)
[2024-11-22] MEDS: NOVOLOG FLEXPEN-LOW RESISTANCE 2 UNITS SC (17:32)
--- NOTE | 2024-11-22 20:00 | PTCARENOTE ---
Pt alert, oriented to self, Q2 neuro checks. Afib on monitor. denies pain. Cardizem gtt 10mg/10ml. Acetylcysteine infusing.
[2024-11-22 21:50] LABS: Glucose - Point of Care 223 mg/dl (70-99)
[2024-11-22] MEDS: NOVOLOG FLEXPEN 2 UNITS SC (22:23)
[2024-11-23] VITALS (23 sets, daily range): BP systolic 90–146; BP diastolic 37–114; BMI 22.9
[2024-11-23 01:24] LABS: Haptoglobin 164 mg/dL (30-200)
[2024-11-23 03:37] LABS: Hematocrit 24.4 % (37.0-47.0); Hemoglobin 8.1 g/dL (12.0-16.0); Mean Corp Hgb Conc. 33.2 g/dL (33.0-37.0); Mean Corpuscular Hgb 29.1 pg (27.0-31.0); Mean Corpuscular Volume 87.8 fL (81.0-99.0); Mean Platelet Volume 9.9 fL (7.4-10.4); Platelet Count 138 10^3/uL (130-400); Red Blood Cell Count 2.78 10^6/uL (4.20-5.40); Red Cell Dist. Width 15.7 % (11.5-14.5); White Blood Cell Count 7.2 10^3/uL (4.8-10.8)
[2024-11-23 03:42] LABS: Reticulocyte Count 1.9 % (0.4-2.8)
[2024-11-23 03:48] LABS: INR 1.68
[2024-11-23 03:49] LABS: APTT 62.9 Sec (23.4-35.0); Fibrinogen 257 MG/DL (199-459)
[2024-11-23 03:51] LABS: D-Dimer 2.43 ug/mlFEU (0.00-0.50)
[2024-11-23 04:00] LABS: Lactic Acid 1.7 mmol/L (0.7-2.0)
[2024-11-23 04:01] LABS: Ammonia < 9 umol/L (9-30)
[2024-11-23 04:09] LABS: NT-proBNP 2340 pg/ml
[2024-11-23 04:19] LABS: Alkaline Phosphatase 119 U/L (38-126); Blood Urea Nitrogen 28 mg/dl (7-17); Carbon Dioxide 15 mmol/L (22-30); Chloride 109 mmol/L (98-107); Estimated Creatinine Clearance 31 ml/min; Glucose 203 mg/dl (70-99); Magnesium 1.4 mg/dl (1.6-2.3); Potassium 3.2 mmol/L (3.5-5.1); Sodium 138 mmol/L (135-145); Total Bilirubin 0.7 mg/dl (0.2-1.3); Total Protein 5.2 g/dl (6.3-8.2); eGFR 42.09
[2024-11-23 04:31] LABS: Cortisol, Random 37.1 ug/dl
[2024-11-23 04:53] LABS: ALT (SGPT) 2974 U/L (0-35); AST (SGOT) 5162 U/L (14-36); LDH 2970 U/L (120-246)
[2024-11-23] MEDS: KCL 40 MEQ PO ×2 (04:58→12:05)
[2024-11-23] MEDS: CARDIZEM 125 IV ×2 (07:32→19:56)
[2024-11-23] MEDS: HEPARIN 5000 UNITS SC ×2 (07:33→19:56)
[2024-11-23] MEDS: TAMIFLU 30 MG PO (07:33)
[2024-11-23] MEDS: VIBRAMYCIN 100 MG PO ×2 (07:33→19:56)
[2024-11-23] MEDS: GLUCOTROL 2.5 MG PO ×2 (07:33→17:08)
[2024-11-23] MEDS: NSS (PRESERVATIVE FREE) 10 ML IV (07:33)
[2024-11-23] MEDS: PROTONIX IV 40 MG IV (07:33)
[2024-11-23 08:05] LABS: Glucose - Point of Care 251 mg/dl (70-99)
[2024-11-23] MEDS: NOVOLOG FLEXPEN-LOW RESISTANCE 3 UNITS SC (08:16)
--- NOTE | 2024-11-23 10:18 | W.PN.GI.CBS2 ---
Today's Communication / Plan
-
trend LFTs, NAC gtt protocol
Assessment / Plan
-
79-year-old female past medical history of breast cancer, lung cancer, A-fib on Eliquis admitted with shortness of breath found to have flu and pneumonia complicated by DKA with metabolic acidosis and GI was consulted for elevated transaminases as
high in the . Of note, in September 2024 showed normal LFTs. Doppler ultrasound was negative. She does have elevated coags which have risen today. There was some concern of mental status change and hypoglycemia yesterday- ongoing confusion.
I reviewed with pipelines manager Sun/Sun. They felt which I agree with this is most likely ischemic/shock liver and influenza related given the acute rise of liver enzymes in the setting of infection (pipelines manager did see some case reports of this).
Her blood pressure recorded was as low as systolic 80s. NAC gtt protocol. Continue to monitor liver enzymes. Reassuring ammonia level normal making this unlikely to be liver related; confusion more likely related to confusion. I also d/w ID
informally yesterday - we have 2 cases of flu A with LFTs in 6999s and a third in the and likely will rise- plan to send out subtype of flu to see if there is a correlation.
Of note, needs outpatient follow-up for large polyp with Dr. Cobos.
Subjective
Subjective
Date of Service: November 23, 2024
Still confused LFTs improving
Objective
Data Reviewed
Laboratory Data:
Laboratory Results
11/23/24 03:26
11/23/24 03:26
Laboratory Results
PT 20.0 Sec (11.4-14.6) H 11/23/24 03:26
INR 1.68 11/23/24 03:26
APTT 62.9 Sec (23.4-35.0) H 11/23/24 03:26
Phosphorus 3.3 mg/dl (2.5-4.5) 11/20/24 04:12
Magnesium 1.4 mg/dl (1.6-2.3) L 11/23/24 03:26
Total Bilirubin 0.7 mg/dl (0.2-1.3) 11/23/24 03:26
AST 5162 U/L (14-36) H* 11/23/24 03:26
ALT 2974 U/L (0-35) H* 11/23/24 03:26
Alkaline Phosphatase 119 U/L (38-126) 11/23/24 03:26
Vital Signs and I&O:
Vital Signs
Temp Pulse Resp BP Pulse Ox
97.8 F 93 19 125/82 98
11/23/24 07:00 11/23/24 08:00 11/23/24 08:00 11/23/24 08:00 11/23/24 08:49
I&O
11/22/24 11/23/24 11/24/24
06:59 06:59 06:59
Intake Total 2031.7 / 2085.1 1531.6 / 1585.0 213.6 / 213.6
Output Total 2200 / 2200 1750 / 1750
Balance -168.3 / -114.9 -218.4 / -165.0 213.6 / 213.6
Physical Exam
Physical Exam
HEENT: Anicteric
Cardiology: Normal Sinus Rhythm
Pulmonary: Clear
GI: Non Distended and Non Tender
--- NOTE | 2024-11-23 10:24 | PTCARENOTE ---
Rec'd pt at 0700, pt IMU level of care. Confused conversation and forgetful, follows commands, GUTIERREZ with equal strength. Attempts to climb OOB, bed alarm in place. Pt needs frequent reorienting to situation. Monitor Afib, Cardizem gtts infusing
10mg/hr. pox 98% RA, +VÁSQUEZ. Acetylcysteine infusing per ordered rate.
--- NOTE | 2024-11-23 11:09 | W.PN.HOSP.TC ---
Today's Communication/Plan
-
see bold
Assessment / Plan
Assessment / Plan
Gen: NAD, AAOx3.
Eyes: EOMI, PERRLA, no scleral icterus.
Neck: supple.
CV: irreg/irreg, +S1/S2, 2/6 ANTONIO
Resp: CTAB anteriorly, no rales, wheezes, or rhonchi.
Abd: +BS, soft, NT, ND
Skin: No rashes.
Neuro: CN 2-12 intact, non-focal, resting tremor
Psych: Normal mood and affect.
11/19/24 22:01 Blood/Venous Blood Culture - Preliminary
No Growth in 72 hours- Final report to follow
11/19/24 20:24 Blood/Venous Blood Culture - Preliminary
No Growth in 72 hours- Final report to follow
11/20/24 11:04 Urine Urine Culture - Final
11/19/24 22:01 Nasal Swab Influenza Types A & B (ABBEY) - Final
Influenza A Positive, NAAT
CXR: Mild pneumonia in the medial right lung base.
CT A/P: Posterior right lower lobe pneumonia. Small parapneumonic effusion. Prominent gallbladder wall thickening. Subtle increased attenuation of sludge or concentrated bile within the lumen. No calcified gallstones identified. Acute cholecystitis
to be excluded. Progressive thickening/enlargement and indistinct margination of left adrenal gland, suggesting possible changes of inflammation/adrenalitis. Limited bowel evaluation secondary to lack of intravenous and oral contrast. No evidence of
bowel obstruction. Minor sigmoid diverticulosis. No evidence of acute diverticulitis. Trace free pelvic fluid.
Abd U/S: No evidence of cholelithiasis, gallbladder wall thickening or biliary tract dilatation. Approximate 5 cm simple right renal cyst.
Acute metabolic encephalopathy:
-Possibly due to transaminitis which was initially thought to be due to hypotension/hypoperfusion
-currently on NAC protocol as per GI
Transaminitis:
-Abd U/S above, unremarkable
-Acute viral hepatitis panel negative
-GI following
-cont NAC protocol
-Transaminases improving
Severe Sepsis:
-likely due to RLL PNA
-pt did not require pressors
-s/p IVF bolus for episode of hypotension
-Flu A POS
-BCxs NGTD
-cont Tamiflu
-has been on Rocephin/Doxy since 11/19/24
Acute AG met acidosis:
-due to severe sepsis and metformin causing lactic acidosis and DKA
-was on insulin gtt, now off
-AG currently 14
Permanent A-fib:
-s/p CV 09/16/24
-Eliquis on hold with acute liver injury
-cont cardizem gtt
Anemia:
-likely of chronic disease exacerbated by dilution due to IVFs
-Hb currently stable
Other problems:
Elevated troponin due to nonischemic myocardial injury
Hypokalemia: 40meq PO K
Hypomagnesemia: 4g IV K
CKD3a: Baseline Cr 1.1-1.5, MODESTA has been ruled out
DM2: cont Glipizide/SSI/accuchecks/diabetic diet
Essential HTN: Holding all antihypertensives with hypotension
Hyperlipidemia: holding statin with transaminitis
FULL/heparin
Total time spent on today's encounter was 50 minutes which included time spent in counseling the patient/family regarding diagnosis and treatment plan as listed above, goals of care, and symptom management. Case was discussed with nursing staff,
specialists, and care coordinators/case management. All labs and imaging personally reviewed by me. Remainder the time spent in detailed review of previous records, lab data, imaging, and other medical provider documentation.
Anticipated Discharge: > 48 hours
Subjective/Interval History
-
Date of Service: November 23, 2024
c/o nausea, otherwise no new complaints.
Objective Data
-
Labs:
Laboratory Results
11/23/24
03:26
WBC 7.2
Hgb 8.1 L
Hct 24.4 L
Plt Count 138
PT 20.0 H
INR 1.68
APTT 62.9 H
Sodium 138
Potassium 3.2 L
Chloride 109 H
Carbon Dioxide 15 L
BUN 28 H
Creatinine 1.3 H
Glucose 203 H
Calcium 8.0 L
Total Bilirubin 0.7
AST 5162 H*
ALT 2974 H*
Alkaline Phosphatase 119
Vital Signs:
Vital Signs
Temp Pulse Resp BP Pulse Ox
97.8 F 94 16 90/37 98
11/23/24 07:00 11/23/24 10:00 11/23/24 10:00 11/23/24 10:00 11/23/24 08:49
I&O
11/22/24 11/23/24 11/24/24
06:59 06:59 06:59
Intake Total 2031.7 / 2085.1 1531.6 / 1585.0 213.6 / 213.6
Output Total 2200 / 2200 1750 / 1750 675 / 675
Balance -168.3 / -114.9 -218.4 / -165.0 -461.4 / -461.4
--- NOTE | 2024-11-23 11:33 | W.PN.CD ---
Today's Communication / Plan
-
continue dilt gtt
holding eliquis, possibly resume tomorrow?
Impression / Plan
-
Sepsis:
-diagnosis is threat to life
-patient with flu A- getting Tamiflu and PNA (getting IV abx)
AMS
-likely 2/2 to acute illness
-improved a bit today
Elevate LFTs:
-some improvement in LFTs and INR today
-likely linked to FLU
-GI now following n-acetylcysteine
AFIB with RVR:
-patient has known permanent AFIB. In the setting of acute illness and not getting daily propranolol,
-rates were persistently elevated so started on diltiazem gtt, will continue intensive monitoring
-when liver recovers will resume propranolol given concurrent tremor
-Eliquis held with anemia and abnormal liver tests. Stable
Abnormal troponin:
-acute, non-ischemic myocardial injury in setting of acute illness as above
-echo normal EF
Volume overload:
-now proBNP has decreased from [address]4526 to 2340 without diuresis
-This is in setting of sepsis
-Would not recommend diuresis at this time.
Overall prognosis is gaurded,
SUJECTIVE:
feeling a little better, upset stomach but knows where she is today
TTE: 11/21/24 CONCLUSIONS
Normal biventricular size and systolic function without regional wall motion
abnormality.
Abnormal (paradoxical) septal motion consistent with right ventricular (RV)
volume overload.
Mild aortic stenosis and trace aortic regurgitation.
Moderate tricuspid regurgitation. Moderate pulmonary hypertension.
Compared to the prior on 08/05/2024, there is now signs of RV overload and
pulmonary hypertension
Physical Exam
Vital Signs/Labs
Vital Signs
Temp Pulse Resp BP Pulse Ox
98.6 F 94 16 90/37 98
11/23/24 11:00 11/23/24 10:00 11/23/24 10:00 11/23/24 10:00 11/23/24 08:49
11/22/24 11/23/24 11/24/24
06:59 06:59 06:59
Actual Weight 60.4 kg 60.4 kg
11/23/24 03:26
11/23/24 03:26
PT 20.0 Sec (11.4-14.6) H 11/23/24 03:26
INR 1.68 11/23/24 03:26
APTT 62.9 Sec (23.4-35.0) H 11/23/24 03:26
Magnesium 1.4 mg/dl (1.6-2.3) L 11/23/24 03:26
11/19/24 11/23/24
20:06 03:26
Clk-Z-Mkejqksrisx Pept [id number] 2340
LAB Results
11/20/24 11/20/24 11/21/24
11:01 13:38 05:42
Troponin I 0.045 H* 0.051 H* 0.061 H*
11/21/24 11/21/24
07:49 10:24
Troponin I Cancelled 0.051 H*
Physical Exam
Constitutional: No acute distress
Cardiovascular: Pedal edema is absent, Rhythm/rate is irregular and JVD present
Respiratory: Respiratory effort normal, Lungs clear to auscul., Wheeze Absent, Crackles Absent and Rhonchi Absent
Neuro/Psych: AO x 3
Data Reviewed
-
Date of Service: November 23, 2024
EKG: Other (afib rate controlled)
[2024-11-23] MEDS: STERILE WATER FOR INJECTION 10 ML IV (12:04)
[2024-11-23] MEDS: MAGNESIUM SULFATE 100 IV (12:05)
[2024-11-23] MEDS: ROCEPHIN 1000 MG IV (12:05)
[2024-11-23] MEDS: FLUSH (NSS) IV ×2 (12:08)
[2024-11-23] MEDS: NOVOLOG FLEXPEN-LOW RESISTANCE 2 UNITS SC ×2 (12:11→17:08)
[2024-11-23 12:23] LABS: Glucose - Point of Care 221 mg/dl (70-99)
[2024-11-23] MEDS: ACETADOTE 1042.6 MG IV (16:07)
[2024-11-23 16:46] LABS: Glucose - Point of Care 206 mg/dl (70-99)
--- NOTE | 2024-11-23 20:00 | PTCARENOTE ---
rec`d at 1900 awake, resting in bed. confused conversation waxes and weans. able to make needs known. Cardizem and acetylcysteine gtt continued through PIVs. baseline tremors. afib on monitor. hr between 80s-100s per MD order. trace LE edema.
afebrile. RA POX mid 90s. diminished lung sounds. non productive occasional cough. +BS. uses bedpan to urinate. bed alarm on. pt educated to not get up w/out calling RN. call barbosa in reach, safe environment maintained.
[2024-11-24] VITALS (24 sets, daily range): BP systolic 94–146; BP diastolic 54–104; PULSE 92; O2SAT 95; BMI 22.3
[2024-11-24 04:39] LABS: Hematocrit 24.5 % (37.0-47.0); Hemoglobin 8.1 g/dL (12.0-16.0); Mean Corp Hgb Conc. 33.1 g/dL (33.0-37.0); Mean Corpuscular Hgb 28.9 pg (27.0-31.0); Mean Corpuscular Volume 87.5 fL (81.0-99.0); Mean Platelet Volume 10.5 fL (7.4-10.4); Platelet Count 146 10^3/uL (130-400); Red Cell Dist. Width 15.3 % (11.5-14.5); White Blood Cell Count 8.4 10^3/uL (4.8-10.8)
[2024-11-24 04:52] LABS: INR 1.47; PT 18.1 Sec (11.4-14.6)
[2024-11-24 05:01] LABS: Albumin 2.8 g/dl (3.5-5.0); Alkaline Phosphatase 112 U/L (38-126); Blood Urea Nitrogen 24 mg/dl (7-17); Calcium 7.9 mg/dl (8.4-10.2); Carbon Dioxide 17 mmol/L (22-30); Chloride 108 mmol/L (98-107); Estimated Creatinine Clearance 29 ml/min; Glucose 217 mg/dl (70-99); Potassium 3.3 mmol/L (3.5-5.1); Sodium 139 mmol/L (135-145); Total Bilirubin 0.8 mg/dl (0.2-1.3); Total Protein 4.9 g/dl (6.3-8.2); eGFR 38.51
[2024-11-24 05:22] LABS: ALT (SGPT) 2010 U/L (0-35)
[2024-11-24 05:31] LABS: AST (SGOT) 1814 U/L (14-36)
[2024-11-24] MEDS: KCL 40 MEQ PO (06:12)
--- NOTE | 2024-11-24 08:00 | PTCARENOTE ---
Assumed care of patient. Pt rec'd alert and oriented to self and place. Periods of anxiety. Fidgety. GUTIERREZ's but weak. S1 S2 irregular w/ afib on monitor. Trace LLE. Weak PP. On R/A...sats 97%. Lungs clear. Moist NPC. Encouraged to cough
and deep breath. Abdomen round...hypo BS. Poor appetite. Able to take pills whole. Voids yellow on bedpan. Skin WNL. 20P RAC capped. 22P LW and 22P LAC w/ cardizem and acetylcysteine gtts infusing. VS documented. Call barbosa within reach.
IMU orders.
--- NOTE | 2024-11-24 08:14 | PN.DE.MGMTRT ---
Insulin Management
- -
11/24/2024: Diabetes Management follow up
79 year old female with recent h/o A-fib on Eliquis, HTN, HLD, h/o lung and breast cancers and T2DM, who presents with sepsis, anion gap metabolic acidosis and DKA. GAP was 24--> initiated on DKA protocol.
Pt is awake, alert, mental status is improving, but waxes and wanes, offers no complaints, able to discuss diabetes care.
11/20 transitioned off insulin infusion. Metformin held due to MODESTA with Cr of 1.4. eGFR 38.51 today
Noted for poor appetite and poor PO intake, though glucose elevated, FBG 217 this AM.
11/23 premeal range 206 to 251, requiring 1-3 units of corrective insulin,
Will Give NPH x1 Now. Start Lantus 12 units @ HS and increase glipizide to 5mg BID.
Unable to provide glucose monitor instructions at this time due to poor mental status.
Will follow up and arrange for pt to come to the office for glucose monitor instruction- Spoke to pt's wo will call the office and make an appointment.
Diabetes History
- -
Type of Diabetes: 2 requiring insulin
Pre-Admission Diabetes Regimen
11/24/24
04:20
Creatinine 1.4 H
Lab Results
Hemoglobin A1c 7.5 % (4.0-5.6) H 11/20/24 00:22
Insulin Pump Settings
IP Diabetes Regimen
11/23/24 11/23/24 11/24/24
12:11 16:35 04:20
Glucose 217 H
POC Glucose 221 H 206 H
Meal type: Dinner
Amount consumed: 5%
Patient Education
--- NOTE | 2024-11-24 08:26 | W.PN.CD ---
Today's Communication / Plan
-
Stop diltiazem drip. Start diltiazem 30 q6 hours
when able resume propranolol over diltiazem
Impression / Plan
-
Sepsis:
-diagnosis is threat to life
-patient with flu A- getting Tamiflu and PNA (getting IV abx)
AMS
-likely 2/2 to acute illness
-improved again today now oriented
Elevate LFTs:
-improving in LFTs and INR today
-likely linked to FLU
-GI now following n-acetylcysteine
AFIB with RVR:
-patient has known permanent AFIB. In the setting of acute illness and not getting daily propranolol,
-rates were persistently elevated so started on diltiazem gtt, will transition to p.o. diltiazem until able to resume her typical propranolol.
-when liver recovers will resume propranolol given concurrent tremor
-Eliquis held with anemia and abnormal liver tests. Stable
Abnormal troponin:
-acute, non-ischemic myocardial injury in setting of acute illness as above
-echo normal EF
Volume overload:
-now proBNP has decreased [place] 69677 to 2340 without diuresis
-This is in setting of sepsis
-Would not recommend diuresis at this time.
SUJECTIVE:
feeling a little better, nausea after taking medications this morning. Otherwise breathing feeling better.
TTE: 11/21/24 CONCLUSIONS
Normal biventricular size and systolic function without regional wall motion
abnormality.
Abnormal (paradoxical) septal motion consistent with right ventricular (RV)
volume overload.
Mild aortic stenosis and trace aortic regurgitation.
Moderate tricuspid regurgitation. Moderate pulmonary hypertension.
Compared to the prior on 08/05/2024, there is now signs of RV overload and
pulmonary hypertension
Physical Exam
Vital Signs/Labs
Vital Signs
Temp Pulse Resp BP Pulse Ox
98.7 F 91 16 115/92 93
11/24/24 04:00 11/24/24 05:00 11/24/24 05:00 11/24/24 05:00 11/23/24 19:36
11/23/24 11/24/24 11/25/24
06:59 06:59 06:59
Actual Weight 60.4 kg 58.8 kg
11/24/24 04:20
11/24/24 04:20
PT 18.1 Sec (11.4-14.6) H 11/24/24 04:20
INR 1.47 11/24/24 04:20
APTT 62.9 Sec (23.4-35.0) H 11/23/24 03:26
Magnesium 1.4 mg/dl (1.6-2.3) L 11/23/24 03:26
11/19/24 11/23/24
20:06 03:26
Ldf-P-Ypnrrmvdjlg Pept [id number] 2340
LAB Results
11/21/24 11/21/24
05:42 10:24
Troponin I 0.061 H* 0.051 H*
Physical Exam
Constitutional: No acute distress
Cardiovascular: Systolic murmur absent, Diastolic murmur absent, Rhythm/rate is irregular and Pedal edema present (trace b/l)
Respiratory: Respiratory effort normal, Wheeze Absent, Crackles Absent and Rhonchi Present (mild diffuseley)
Neuro/Psych: AO x 3
Data Reviewed
-
Date of Service: November 24, 2024
Medical Decision Making: Review of Case with other Provider (Dr Saravia and ICU nurse Valery will start po dilt)
[2024-11-24] MEDS: NOVOLOG FLEXPEN-LOW RESISTANCE 3 UNITS SC (08:39)
[2024-11-24] MEDS: GLUCOTROL 2.5 MG PO (08:41)
[2024-11-24] MEDS: VIBRAMYCIN 100 MG PO ×2 (08:41→20:08)
[2024-11-24] MEDS: NSS (PRESERVATIVE FREE) 10 ML IV (08:44)
[2024-11-24] MEDS: PROTONIX IV 40 MG IV (08:44)
[2024-11-24] MEDS: HEPARIN 5000 UNITS SC ×2 (08:44→20:09)
[2024-11-24 08:50] LABS: Glucose - Point of Care 259 mg/dl (70-99)
[2024-11-24 10:15] LABS: Magnesium 2.2 mg/dl (1.6-2.3)
--- NOTE | 2024-11-24 10:17 | W.PN.UPDATE ---
Update Note
Progress Note Update
I saw and evaluated the patient. I reviewed the resident�s note and agree with findings and plan as documented in the resident�s note.
No new complains. Pt states she feels better overall.
Gen: NAD, Awake and alert, NCAT
Eyes: EOMI, PERRLA, no scleral icterus.
Neck: supple.
CV: tachy, irreg/irreg, +S1/S2, 2/6 ANTONIO
Resp: remains CTAB anteriorly, no rales, wheezes, or rhonchi.
Abd: +BS, soft, NT, ND
Skin: No rashes.
Neuro: CN 2-12 intact, non-focal, resting tremor
Psych: Normal mood and affect.
11/19/24 22:01 Blood/Venous Blood Culture - Preliminary
No Growth in 4 days- Final report to follow
11/19/24 20:24 Blood/Venous Blood Culture - Preliminary
No Growth in 4 days- Final report to follow
11/20/24 11:04 Urine Urine Culture - Final
11/19/24 22:01 Nasal Swab Influenza Types A & B (ABBEY) - Final
Influenza A Positive, NAAT
CXR: Mild pneumonia in the medial right lung base.
CT A/P: Posterior right lower lobe pneumonia. Small parapneumonic effusion. Prominent gallbladder wall thickening. Subtle increased attenuation of sludge or concentrated bile within the lumen. No calcified gallstones identified. Acute cholecystitis
to be excluded. Progressive thickening/enlargement and indistinct margination of left adrenal gland, suggesting possible changes of inflammation/adrenalitis. Limited bowel evaluation secondary to lack of intravenous and oral contrast. No evidence of
bowel obstruction. Minor sigmoid diverticulosis. No evidence of acute diverticulitis. Trace free pelvic fluid.
Abd U/S: No evidence of cholelithiasis, gallbladder wall thickening or biliary tract dilatation. Approximate 5 cm simple right renal cyst.
Acute metabolic encephalopathy:
-Possibly due to transaminitis which was initially thought to be due to hypotension/hypoperfusion
-s/p NAC protocol as per GI
Transaminitis:
-Abd U/S above, unremarkable
-Acute viral hepatitis panel negative
-GI following
-s/p NAC protocol
-Transaminases improving
-possible due to influenza infection
Severe Sepsis:
-likely due to RLL PNA
-pt did not require pressors
-s/p IVF bolus for episode of hypotension
-Flu A POS
-BCxs NGTD
-cont Tamiflu
-has been on Rocephin/Doxy since 11/19/24
Acute AG met acidosis:
-due to severe sepsis and metformin causing lactic acidosis and DKA
-was on insulin gtt, now off
-AG currently 14
Permanent A-fib:
-s/p CV 09/16/24
-Eliquis on hold with acute liver injury
-stop cardizem gtt, transition to PO Cardizem (discussed with cardiology)
Anemia:
-likely of chronic disease exacerbated by dilution due to IVFs
-Hb currently stable
Other problems:
Elevated troponin due to nonischemic myocardial injury
Hypokalemia: 40meq PO K
Hypomagnesemia, resolved
CKD3a: Baseline Cr 1.1-1.5, MODESTA has been ruled out
DM2: cont Glipizide/SSI/accuchecks/diabetic diet
Essential HTN: Holding all antihypertensives with hypotension
Hyperlipidemia: holding statin with transaminitis
FULL/heparin
Total time spent on today's encounter was 51 minutes which included time spent in counseling the patient/family regarding diagnosis and treatment plan as listed above, goals of care, and symptom management. Case was discussed with nursing staff,
specialists, and care coordinators/case management. All labs and imaging personally reviewed by me. Remainder the time spent in detailed review of previous records, lab data, imaging, and other medical provider documentation.
--- NOTE | 2024-11-24 10:25 | W.PN.HOSP.TC ---
Today's Communication/Plan
-
Continue abx, downgrade to telemetry, cardizem ggt to PO, resolving transaminitis
Assessment / Plan
Assessment / Plan
81-year-old female with recent history of A-fib on Eliquis, hypertension, diabetes mellitus type 2, hyperlipidemia, history of lung and breast cancers, who presents with sepsis, anion gap metabolic acidosis and DKA.
Severe sepsis:
Respiratory source (flu A infection, right lower lobe pneumonia), versus urinary versus other source.
Leukocytosis plus tachypnea on presentation. Urine and blood cultures negative
-Completed Tamiflu, renal dosing
-Continue ceftriaxone day 6, can complete doxycycline today, day 5
-Nebs PRN
-Downgrade to telemetry
Anion gap metabolic acidosis:
Multifactorial: DKA, lactic acidosis (secondary to sepsis versus metformin use), recent loose stools -possible diarrheal bicarb loss
Improving, status post bicarb bolus. Gap closed X 2.
-Metformin held
-Continue to follow
-Lactate resolved
Diabetic ketoacidosis:
Resolved, gap closed
-Diabetic diet
-Appreciate DM DIESEL INSTRUCTOR recs
Permanent A-fib:
Intermittently elevated HR
-Appreciate cards recs
-Eliquis held for liver function
-Cardizem ggt switched to PO
Transaminitis:
Significantly elevated AST/ALT, resolving.
Alk phos mild elevation, resolved. Elevated INR resolving
-Patient was on 3900 mg Tylenol daily. Tylenol level <10. No alc history, alc level non detected. Hepatitis panel negative
-Abd US showed no evidence of cholelithiasis, gallbladder wall thickening or biliary tract dilatation
-transaminitis likely from shock liver, possibly hypotensive state during course of illness, or transaminitis secondary to influenza
-Appreciate GI recs. NAC
Elevated troponin:
Denies chest pain/dyspnea
Likely nonischemic myocardial injury secondary to sepsis
Electrolyte abnormality:
-Hyperkalemia resolved with insulin. Hypokalemia, replete
-Magnesium repleted, resolved
-Low sodium due to pseudohyponatremia, resolved
Normocytic anemia:
Likley combination of iron deficiency and chronic disease.
-No evidence of hemolysis or DIC
-Will continue to monitor H&H, transfuse if Hgb <7
Vdx-uhzfucj-wioarniwh diabetes mellitus:
-Hold metformin given lactic acidosis
-Continue Glipizide
- Appreciate DM [employer]EL INSTRUCTOR recs
Hypertension:
-Home antihypertensives held while septic
CKD stage 3a
-Creatinine 1.4
-Avoid nephrotoxic agents, follow BMP, renal dosing for meds
Hyperlipidemia:
-Hold statin given transaminitis
DVT prophylaxis: Subcu heparin
CODE STATUS: Full code
Anticipated Discharge: Within 24 hours
Subjective/Interval History
-
Date of Service: November 24, 2024
Nausea early this morning, resolved. No acute overnight events.
Objective Data
-
Labs:
Laboratory Results
11/24/24
04:20
WBC 8.4
Hgb 8.1 L
Hct 24.5 L
Plt Count 146
PT 18.1 H
INR 1.47
Sodium 139
Potassium 3.3 L
Chloride 108 H
Carbon Dioxide 17 L
BUN 24 H
Creatinine 1.4 H
Glucose 217 H
Calcium 7.9 L
Total Bilirubin 0.8
AST 1814 H*
ALT 2010 H*
Alkaline Phosphatase 112
Vital Signs:
Vital Signs
Temp Pulse Resp BP Pulse Ox
98.0 F 91 16 115/92 93
11/24/24 08:35 11/24/24 05:00 11/24/24 05:00 11/24/24 05:00 11/23/24 19:36
I&O
11/23/24 11/24/24 11/25/24
06:59 06:59 06:59
Intake Total 1531.6 / 1585.0 1486.6 / 1535.0 96.8 / 96.8
Output Total 1750 / 1750 1375 / 1375 325 / 325
Balance -218.4 / -165.0 111.6 / 160.0 -228.2 / -228.2
Review of Systems
-
History Source: Patient
Respiratory: Denies Cough or Trouble Breathing
Cardiac: Denies Chest Pain
Abdomen/GI: Denies Abdominal Pain, Nausea, Vomiting, Diarrhea or Constipated
Genitourinary: Denies Dysuria
Physical Exam
-
HEENT: Normocephalic, Atraumatic and Moist Mucous Membranes
Respiratory: Clear to Auscultation and Non Labored Respirations; Negative Wheezes, Rales, Rhonchi or Crackles
Cardiac: S1/S2, Irregular Rhythm and Murmur (systolic)
GI: Soft, Nontender, Nondistended and Normal Bowel Sounds
Skin: Warm and Dry
Neuro: Awake, Alert and Oriented
Psych: Calm
[2024-11-24] MEDS: FLUSH (NSS) IV (11:26)
[2024-11-24] MEDS: CARDIZEM 30 MG PO ×3 (11:32→23:09)
[2024-11-24] MEDS: ROCEPHIN 1000 MG IV (11:33)
[2024-11-24] MEDS: STERILE WATER FOR INJECTION 10 ML IV (11:33)
[2024-11-24] MEDS: NOVOLIN N vial 0.15 UNITS SC (11:37)
[2024-11-24] MEDS: NOVOLOG FLEXPEN-LOW RESISTANCE 2 UNITS SC (11:37)
--- NOTE | 2024-11-24 11:45 | PTCARENOTE ---
Seen by PT/OT. OOB to chair w/ assist x 2 and rolling walker.
[2024-11-24 11:47] LABS: Glucose - Point of Care 240 mg/dl (70-99)
--- NOTE | 2024-11-24 12:17 | W.PN.GI.CBS2 ---
Today's Communication / Plan
-
trend lfts gi signing off
Assessment / Plan
-
79-year-old female past medical history of breast cancer, lung cancer, A-fib on Eliquis admitted with shortness of breath found to have flu and pneumonia complicated by DKA with metabolic acidosis and GI was consulted for elevated transaminases as
high in the . Of note, in September 2024 showed normal LFTs. Doppler ultrasound was negative. She does have elevated coags which have normalized. I reviewed with casting machine control board operator Fri/Sat. They felt which I agree with this is most likely
ischemic/shock liver and influenza related given the acute rise of liver enzymes in the setting of infection (casting machine control board operator did see some case reports of this). Her blood pressure recorded was as low as systolic 80s. NAC gtt protocol was completed.
Continue to monitor liver enzymes. Reassuring ammonia level normal making this unlikely to be liver related; confusion more likely related to flu. Improving. I also d/w ID informally previously - we have 2 cases of flu A with LFTs in and a
third in the and likely will rise- plan to send out subtype of flu to see if there is a correlation.
Of note, needs outpatient follow-up for large polyp with Dr. Cobos. I will send a msg to my office to set up not urgent appt with Dr. Cobos.
GI will sign off pls call with ?s
Subjective
Subjective
Date of Service: November 24, 2024
confusion improved
Objective
Data Reviewed
Laboratory Data:
Laboratory Results
11/24/24 04:20
11/24/24 04:20
Laboratory Results
PT 18.1 Sec (11.4-14.6) H 11/24/24 04:20
INR 1.47 11/24/24 04:20
APTT 62.9 Sec (23.4-35.0) H 11/23/24 03:26
Phosphorus 3.3 mg/dl (2.5-4.5) 11/20/24 04:12
Magnesium 2.2 mg/dl (1.6-2.3) 11/24/24 04:20
Total Bilirubin 0.8 mg/dl (0.2-1.3) 11/24/24 04:20
AST 1814 U/L (14-36) H* 11/24/24 04:20
ALT 2010 U/L (0-35) H* 11/24/24 04:20
Alkaline Phosphatase 112 U/L (38-126) 11/24/24 04:20
Vital Signs and I&O:
Vital Signs
Temp Pulse Resp BP Pulse Ox
98.0 F 107 18 132/104 97
11/24/24 08:35 11/24/24 11:32 11/24/24 10:00 11/24/24 11:32 11/24/24 08:00
I&O
11/23/24 11/24/24 11/25/24
06:59 06:59 06:59
Intake Total 1531.6 / 1585.0 1486.6 / 1535.0 193.6 / 193.6
Output Total 1750 / 1750 1375 / 1375 325 / 325
Balance -218.4 / -165.0 111.6 / 160.0 -131.4 / -131.4
Physical Exam
Physical Exam
HEENT: Anicteric
GI: Non Distended and Non Tender
[2024-11-24] MEDS: FLUSH (NSS) 1 FLUSH IV (12:45)
--- NOTE | 2024-11-24 13:52 | CM ---
CM following re: discharge planning.
Reviewed pt's chart.
Pt is with flu A infection, right lower lobe pneumonia, continue supportive care.
Updated PT and OT evaluations noted - SNF level of care recommended.
A referral to preferred [facility] SNF noted. Awaiting for determination.
D/C plan: [facility] SNF if accepted.
CM will follow to assist pt with discharge to a preferred SNF.
[2024-11-24] MEDS: GLUCOTROL 5 MG PO (17:19)
[2024-11-24] MEDS: NOVOLOG FLEXPEN-LOW RESISTANCE 300 UNITS SC (17:20)
[2024-11-24 17:32] LABS: Glucose - Point of Care 233 mg/dl (70-99)
--- NOTE | 2024-11-24 18:10 | PTCARENOTE ---
Report called to Jazzy EASLEY on 4th floor. Pt to transfer to Room 436-1.
[2024-11-24 22:10] LABS: Glucose - Point of Care 129 mg/dl (70-99)
[2024-11-24] MEDS: LANTUS 0.12 UNITS SC (22:26)
[2024-11-25 02:54] VITALS: BP 150/70
[2024-11-25] MEDS: CARDIZEM 30 MG PO ×4 (05:30→23:09)
[2024-11-25 07:29] VITALS: BP 134/75
[2024-11-25 07:46] LABS: Glucose - Point of Care 69 mg/dl (70-99)
--- NOTE | 2024-11-25 08:49 | PN.DE.MGMTRT ---
Insulin Management
- -
11/25/2024: Diabetes Management follow up
Patient admitted with difficulty breathing, pneumonia, Flu A, metabolic acidosis DKA with PMH recent h/o A-fib on Eliquis, HTN, HLD, h/o lung and breast cancers and T2DM.
Pt is awake, alert, mental status is improving, but waxes and wanes, offers no complaints, able to discuss diabetes care.
11/20 transitioned off insulin infusion. Metformin held due to MODESTA.
11/24 premeal range 233 to 259, requiring 1-3 units of corrective insulin, glipizide increased to 5 mg BID.
HS glucose 129, patient received 12 units lantus.
11/25 Fasting glucose 69. Will reduce HS lantus to 10 units, continue glipizide 5 mg BID.
Patient most likely going to SNF at discharge, reinforced need for appointment for monitor instruction.
Unable to provide glucose monitor instructions at this time due to poor mental status.
Will follow up and arrange for pt to come to the office for glucose monitor instruction- Spoke to pt's who will call the office and make an appointment.
Diabetes History
- -
Type of Diabetes: 2
Pre-Admission Diabetes Regimen
Lab Results
Hemoglobin A1c 7.5 % (4.0-5.6) H 11/20/24 00:22
Insulin Pump Settings
IP Diabetes Regimen
11/24/24 11/24/24 11/24/24
08:38 11:36 17:20
POC Glucose 259 H 240 H 233 H
11/24/24 11/25/24
22:09 07:44
POC Glucose 129 H 69 L
Meal type: Dinner
Meal type: Lunch
Amount consumed: 45%
Amount consumed: 40%
Patient Education
[2024-11-25 08:50] LABS: Glucose - Point of Care 103 mg/dl (70-99)
[2024-11-25] MEDS: PROTONIX IV 40 MG IV (09:05)
[2024-11-25] MEDS: NSS (PRESERVATIVE FREE) 10 ML IV (09:05)
[2024-11-25] MEDS: GLUCOTROL 5 MG PO ×2 (09:05→16:30)
[2024-11-25] MEDS: NOVOLOG FLEXPEN-LOW RESISTANCE SC ×3 (09:05→15:57)
[2024-11-25] MEDS: HEPARIN 5000 UNITS SC ×2 (09:05→20:21)
[2024-11-25] MEDS: VIBRAMYCIN 100 MG PO ×2 (09:06→20:21)
[2024-11-25 09:12] LABS: Hemoglobin 7.9 g/dL (12.0-16.0); Mean Corp Hgb Conc. 32.9 g/dL (33.0-37.0); Mean Corpuscular Hgb 28.7 pg (27.0-31.0); Mean Corpuscular Volume 87.3 fL (81.0-99.0); Mean Platelet Volume 9.8 fL (7.4-10.4); Platelet Count 128 10^3/uL (130-400); Red Blood Cell Count 2.75 10^6/uL (4.20-5.40); Red Cell Dist. Width 15.5 % (11.5-14.5); White Blood Cell Count 8.3 10^3/uL (4.8-10.8)
[2024-11-25 09:58] LABS: Alkaline Phosphatase 122 U/L (38-126); Blood Urea Nitrogen 22 mg/dl (7-17); Calcium 8.2 mg/dl (8.4-10.2); Carbon Dioxide 23 mmol/L (22-30); Chloride 107 mmol/L (98-107); Estimated Creatinine Clearance 29 ml/min; Glucose 113 mg/dl (70-99); Magnesium 1.7 mg/dl (1.6-2.3); Potassium 2.7 mmol/L (3.5-5.1); Sodium 139 mmol/L (135-145); Total Bilirubin 1.4 mg/dl (0.2-1.3); Total Protein 5.3 g/dl (6.3-8.2); eGFR 38.51
[2024-11-25 10:09] LABS: ALT (SGPT) 1390 U/L (0-35); AST (SGOT) 786 U/L (14-36)
--- NOTE | 2024-11-25 10:27 | W.PN.CD ---
Today's Communication / Plan
-
Will resume Propranolol
Please resume Eliquis when OK with medicine
Please correct K+
Cardiology will sign off
Impression / Plan
-
AFib, permanent
- Usually on Eliquis 5 bid
- Usually on propranolol ER 120 mg daily
- Rates close to 100 at rest and BP will support resuming BB
Anemia
- No transfusions
Hypokalemia
Infection
- Influenza A
- Also on Ceftriaxone and doxy
Elevate LFTs are improving, GI involved
proBNP [place] 75843 to 2340 without diuresis
Subjective:
No cp or palpitations
Echo 11/21/24
Normal biventricular size and systolic function without regional wall motion
abnormality.
Abnormal (paradoxical) septal motion consistent with right ventricular (RV)
volume overload.
Mild aortic stenosis and trace aortic regurgitation.
Moderate tricuspid regurgitation. Moderate pulmonary hypertension.
Compared to the prior on 08/05/2024, there is now signs of RV overload and
pulmonary hypertension
Physical Exam
Vital Signs/Labs
Vital Signs
Temp Pulse Resp BP Pulse Ox
98.3 F 98 18 134/75 96
11/25/24 07:29 11/25/24 07:29 11/25/24 07:29 11/25/24 07:29 11/25/24 07:29
11/24/24 11/25/24 11/26/24
06:59 06:59 06:59
Actual Weight 58.8 kg
11/25/24 08:57
11/25/24 08:57
PT 18.1 Sec (11.4-14.6) H 11/24/24 04:20
INR 1.47 11/24/24 04:20
APTT 62.9 Sec (23.4-35.0) H 02/16/25 03:26
Magnesium 1.7 mg/dl (1.6-2.3) 11/25/24 08:57
11/19/24 11/23/24
20:06 03:26
Dgs-X-Tikmtnizqda Pept [id number] 2340
Physical Exam
Constitutional: No acute distress
Cardiovascular: Pedal edema is absent and Rhythm/rate is irregular
Respiratory: Respiratory effort normal, Lungs clear to auscul. and Wheeze Absent
GI: Soft and Distention absent
Neuro/Psych: Alert
Data Reviewed
-
Date of Service: November 25, 2024
--- NOTE | 2024-11-25 10:33 | W.PN.UPDATE ---
Addendum entered and electronically signed by Carlitos Saravia MD 11/26/24 11:55:
Total time spent on d/c = 37 min. This included today's physical exam, progress note, review of laboratory and diagnostic data, preparation of discharge documents and prescriptions, and discussions about the pt's hospital course and discharge plan
with the patient and other medical certification specialist involved in the patient's care.
Original Note:
Update Note
Progress Note Update
I saw and evaluated the patient. I reviewed the resident�s note and agree with findings and plan as documented in the resident�s note.
No new complains.
Gen: NAD, Awake and alert, NCAT
Eyes: EOMI, PERRLA, no scleral icterus.
Neck: supple.
CV: remains tachy, irreg/irreg, +S1/S2, 2/6 ANTONIO
Resp: continues to remain CTAB anteriorly, no rales, wheezes, or rhonchi.
Abd: +BS, soft, NT, ND
Skin: No rashes.
Neuro: CN 2-12 intact, non-focal
Psych: Normal mood and affect.
11/19/24 22:01 Blood/Venous Blood Culture - Preliminary
No Growth in 4 days- Final report to follow
11/19/24 20:24 Blood/Venous Blood Culture - Preliminary
No Growth in 4 days- Final report to follow
11/20/24 11:04 Urine Urine Culture - Final
11/19/24 22:01 Nasal Swab Influenza Types A & B (ABBEY) - Final
Influenza A Positive, NAAT
CXR: Mild pneumonia in the medial right lung base.
CT A/P: Posterior right lower lobe pneumonia. Small parapneumonic effusion. Prominent gallbladder wall thickening. Subtle increased attenuation of sludge or concentrated bile within the lumen. No calcified gallstones identified. Acute cholecystitis
to be excluded. Progressive thickening/enlargement and indistinct margination of left adrenal gland, suggesting possible changes of inflammation/adrenalitis. Limited bowel evaluation secondary to lack of intravenous and oral contrast. No evidence of
bowel obstruction. Minor sigmoid diverticulosis. No evidence of acute diverticulitis. Trace free pelvic fluid.
Abd U/S: No evidence of cholelithiasis, gallbladder wall thickening or biliary tract dilatation. Approximate 5 cm simple right renal cyst.
Acute metabolic encephalopathy:
-Possibly due to transaminitis which was initially thought to be due to hypotension/hypoperfusion
-s/p NAC protocol as per GI
Transaminitis:
-Abd U/S above, unremarkable
-Acute viral hepatitis panel negative
-GI following
-s/p NAC protocol
-Transaminases improving
-possible due to influenza infection
Severe Sepsis:
-likely due to RLL PNA
-pt did not require pressors
-s/p IVF bolus for episode of hypotension
-Flu A POS
-BCxs NGTD
-completed 5 days Tamiflu
-completed 5 days Rocephin/Doxy, transition to Augmentin/Doxy for 2 further days
Acute AG met acidosis:
-due to severe sepsis and metformin causing lactic acidosis and DKA
-was on insulin gtt, now off
-AG currently 9, resolved
Permanent A-fib:
-s/p CV 09/16/24
-Eliquis on hold with acute liver injury
-was on cardizem gtt, now transitioned to PO Cardizem 11/24/24AM
-restart Propranolol
Anemia:
-likely of chronic disease exacerbated by dilution due to IVFs
-Hb currently stable
Other problems:
Elevated troponin due to nonischemic myocardial injury
Hypokalemia: 40meq PO K Q4H x 2
Hypomagnesemia, resolved
CKD3a: Baseline Cr 1.1-1.5, MODESTA has been ruled out
DM2: cont Glipizide/SSI/accuchecks/diabetic diet
Essential HTN: Holding all antihypertensives with hypotension
Hyperlipidemia: holding statin with transaminitis
FULL/heparin
Total time spent on today's encounter was 50 minutes which included time spent in counseling the patient/family regarding diagnosis and treatment plan as listed above, goals of care, and symptom management. Case was discussed with nursing staff,
specialists, and care coordinators/case management. All labs and imaging personally reviewed by me. Remainder the time spent in detailed review of previous records, lab data, imaging, and other medical provider documentation.
[2024-11-25 11:28] VITALS: BP 134/69
[2024-11-25] MEDS: AUGMENTIN 500 MG/125 MG 1 TABLET PO ×2 (11:36→20:21)
[2024-11-25] MEDS: KCL 40 MEQ PO ×2 (11:36→15:58)
[2024-11-25] MEDS: INDERAL LA 120 MG PO (11:37)
[2024-11-25] MEDS: FLUSH (NSS) IV (11:38)
[2024-11-25] MEDS: FLUSH (NSS) 1 FLUSH IV (11:38)
--- NOTE | 2024-11-25 11:39 | W.PN.HOSP.TC ---
Today's Communication/Plan
-
Continue ABX p.o., restart propranolol for A-fib, trend transaminases, replete K
Assessment / Plan
Assessment / Plan
81-year-old female with recent history of A-fib on Eliquis, hypertension, diabetes mellitus type 2, hyperlipidemia, history of lung and breast cancers, who presents with sepsis, anion gap metabolic acidosis and DKA.
Severe sepsis:
Respiratory source (flu A infection, right lower lobe pneumonia)
Leukocytosis plus tachypnea on presentation. Urine and blood cultures negative
-Completed Tamiflu, renal dosing
-Completed ceftriaxone/doxycycline x 5 days, transition to Augmentin/doxycycline for 2 more days
-Nebs PRN
Anion gap metabolic acidosis:
Multifactorial: DKA, lactic acidosis (secondary to sepsis versus metformin use), recent loose stools -possible diarrheal bicarb loss
Improving, status post bicarb bolus. Gap closed X 2.
-Metformin held
-resolved
Diabetic ketoacidosis:
Resolved, gap closed
-Diabetic diet
-Appreciate DM RESOURCE SPECIALIST TEACHER recs
Permanent A-fib:
Intermittently elevated HR
-Appreciate cards recs
-Eliquis held for liver function
-Appreciate cards�trace now on PO Cardizem, restart propranolol
Transaminitis:
Significantly elevated AST/ALT, resolving. 786/1390
Alk phos mild elevation, resolved.
-Patient was on 3900 mg Tylenol daily. Tylenol level <10. No alc history, alc level non detected. Hepatitis panel negative
-Abd US showed no evidence of cholelithiasis, gallbladder wall thickening or biliary tract dilatation
-transaminitis likely from shock liver, possibly hypotensive state during course of illness, or transaminitis secondary to influenza
-Appreciate GI recs. NAC protocol discontinued
Elevated troponin:
Denies chest pain/dyspnea
Likely nonischemic myocardial injury secondary to sepsis
Electrolyte abnormality:
-Hyperkalemia resolved with insulin. Hypokalemia, replete
-Magnesium repleted
-Low sodium due to pseudohyponatremia, resolved
Normocytic anemia:
Likely combination of iron deficiency and chronic disease.
-No evidence of hemolysis or DIC
-H&H stable, transfuse if Hgb <7
Dhe-hnapopm-aeehjmfji diabetes mellitus:
-Hold metformin given lactic acidosis
-Continue Glipizide
- Appreciate DM RESOURCE SPECIALIST TEACHER recs, Lantus 10 units, low ISS
Hypertension
CKD stage 3a
-Creatinine 1.4
-Avoid nephrotoxic agents, follow BMP, renal dosing for meds
Hyperlipidemia:
-Hold statin given transaminitis
DVT prophylaxis: Subcu heparin
CODE STATUS: Full code
Anticipated Discharge: Within 24 hours
Subjective/Interval History
-
Date of Service: November 25, 2024
No acute overnight events
Objective Data
-
Labs:
Laboratory Results
11/25/24
08:57
WBC 8.3
Hgb 7.9 L
Hct 24.0 L
Plt Count 128 L
Sodium 139
Potassium 2.7 L*
Chloride 107
Carbon Dioxide 23
BUN 22 H
Creatinine 1.4 H
Glucose 113 H
Calcium 8.2 L
Total Bilirubin 1.4 H
AST 786 H*
ALT 1390 H*
Alkaline Phosphatase 122
Vital Signs:
Vital Signs
Temp Pulse Resp BP Pulse Ox
98.3 F 98 18 134/75 95
11/25/24 07:29 11/25/24 07:29 11/25/24 07:29 11/25/24 07:29 11/25/24 09:05
I&O
11/24/24 11/25/24 11/26/24
06:59 06:59 06:59
Intake Total 1486.6 / 1535.0 803.8 / 803.8
Output Total 1375 / 1375 1075 / 1075
Balance 111.6 / 160.0 -271.2 / -271.2
Review of Systems
-
History Source: Patient
Respiratory: Reports Cough; Denies Trouble Breathing
Cardiac: Denies Chest Pain
Abdomen/GI: Denies Abdominal Pain, Nausea or Vomiting
Physical Exam
-
General: Well Nourished, No Apparent Distress and Other
HEENT: Normocephalic, Atraumatic and Moist Mucous Membranes
Respiratory: Clear to Auscultation and Non Labored Respirations; Negative Wheezes, Rales, Rhonchi or Crackles
Cardiac: S1/S2 and Irregular Rhythm; Negative Murmur, Rub or Calf Tenderness
GI: Soft, Nontender, Nondistended and Normal Bowel Sounds
Musculoskeletal: No Clubbing, No Cyanosis and No Edema
Skin: Warm and Dry
Neuro: Awake, Alert and Oriented
Psych: Calm
[2024-11-25 12:19] LABS: Glucose - Point of Care 110 mg/dl (70-99)
--- NOTE | 2024-11-25 12:40 | CM ---
Addendum entered by Maren Hernandez 11/25/24 14:59:
Per admissions at [facility], no beds available this week, case management director reached out for other options and referrals sent to [facility], list of [email or web address] provided to patient and spouse.
Original Note:
Chart reviewed and physical therapy recommend skilled placement, referral sent to [facility], call placed to Radha in admissions at [facility] today. Waiting on return call.
Plan; Skilled placement, waiting on a call from [facility].
[2024-11-25 15:45] LABS: Glucose - Point of Care 89 mg/dl (70-99)
[2024-11-25 15:49] VITALS: BP 146/88
[2024-11-25 20:07] VITALS: BP 131/75
[2024-11-25 21:32] LABS: Glucose - Point of Care 114 mg/dl (70-99)
[2024-11-25] MEDS: LANTUS 0.1 UNITS SC (21:35)
[2024-11-25 23:47] VITALS: BP 128/75
--- NOTE | 2024-11-26 02:50 | DOWNTIME ---
There was a [employer] Client Machine Assembler For Puller Over Downtime on 11/26/2024 from 0100 to 11/26/2023 at 0235 . Downtime documentation of patient's care, including medication administrations, has been reconciled in the electronic record per guidelines. Refer to the
patient's paper chart under the miscellaneous tab to see printed paper medication records and downtime forms.
[2024-11-26 03:57] VITALS: BP 114/64
[2024-11-26 05:02] VITALS: BMI 20.2
[2024-11-26] MEDS: CARDIZEM 30 MG PO (05:53)
[2024-11-26 07:22] VITALS: BP 122/76
[2024-11-26] MEDS: INDERAL LA 120 MG PO (07:33)
[2024-11-26] MEDS: HEPARIN 5000 UNITS SC (07:33)
[2024-11-26] MEDS: AUGMENTIN 500 MG/125 MG 1 TABLET PO (07:33)
[2024-11-26] MEDS: NSS (PRESERVATIVE FREE) 10 ML IV (07:33)
[2024-11-26] MEDS: VIBRAMYCIN 100 MG PO (07:33)
[2024-11-26] MEDS: PROTONIX IV 40 MG IV (07:33)
[2024-11-26] MEDS: GLUCOTROL 5 MG PO (07:34)
--- NOTE | 2024-11-26 07:53 | PN.DE.MGMTRT ---
Insulin Management
- -
11/26/2024: Diabetes Management follow up
Patient admitted with difficulty breathing, pneumonia, Flu A, sepsis, metabolic acidosis DKA with PMH recent h/o A-fib on Eliquis, HTN, HLD, h/o lung and breast cancers and T2DM.
Pt is awake, alert, mental status is improving, but waxes and wanes, offers no complaints, able to discuss diabetes care.
11/20 transitioned off insulin infusion. Metformin held due to MODESTA.
11/25 HS glucose 11/24 129, patient received 12 units lantus. Fasting glucose 11/25 69. HS lantus dose reduced to 10 units, continue glipizide 5 mg BID.
11/26 Glucose stable 89 to 114. Fasting glucose this AM 65. Will stop HS lantus.
Patient most likely going to SNF at discharge, reinforced need for appointment for monitor instruction.
Unable to provide glucose monitor instructions at this time due to poor mental status.
Will follow up and arrange for pt to come to the office for glucose monitor instruction- Spoke to pt's who will call the office and make an appointment.
Diabetes History
- -
Type of Diabetes: 2
Pre-Admission Diabetes Regimen
11/25/24
08:57
Creatinine 1.4 H
Lab Results
Hemoglobin A1c 7.5 % (4.0-5.6) H 11/20/24 00:22
Insulin Pump Settings
IP Diabetes Regimen
11/25/24 11/25/24 11/25/24
08:49 08:57 12:17
Glucose 113 H
POC Glucose 103 H 110 H
11/25/24 11/25/24
15:44 21:22
Glucose
POC Glucose 89 114 H
Patient Education
--- NOTE | 2024-11-26 08:00 | W.PN.HOSP.TC ---
Today's Communication/Plan
-
DC planning
Assessment / Plan
Assessment / Plan
81-year-old female with recent history of A-fib on Eliquis, hypertension, diabetes mellitus type 2, hyperlipidemia, history of lung and breast cancers, who presents with sepsis, anion gap metabolic acidosis and DKA.
Severe sepsis:
Respiratory source (flu A infection, right lower lobe pneumonia)
Leukocytosis plus tachypnea on presentation. Urine and blood cultures negative
-Completed Tamiflu, renal dosing
-Completed ceftriaxone/doxycycline x 5 days, transitioned to Augmentin/doxycycline
-Nebs PRN
Anion gap metabolic acidosis:
Multifactorial: DKA, lactic acidosis (secondary to sepsis versus metformin use), recent loose stools -possible diarrheal bicarb loss
Improving, status post bicarb bolus. Gap closed X 2.
-Metformin held
-resolved
Diabetic ketoacidosis:
Resolved, gap closed
-Diabetic diet
-Appreciate DM EMBLEM FUSER TENDER recs
Permanent A-fib:
Intermittently elevated HR
-Appreciate cards recs
-Eliquis held for liver function
-Appreciate cards�trace now on PO Cardizem, peopranolol
Transaminitis:
Significantly elevated AST/ALT, resolving. 485/1041 today
Alk phos mild elevation, resolved.
-Patient was on 3900 mg Tylenol daily. Tylenol level <10. No alc history, alc level non detected. Hepatitis panel negative
-Abd US showed no evidence of cholelithiasis, gallbladder wall thickening or biliary tract dilatation
-transaminitis likely from shock liver, possibly hypotensive state during course of illness, or transaminitis secondary to influenza
-Appreciate GI recs. NAC protocol discontinued
Elevated troponin:
Denies chest pain/dyspnea
Likely nonischemic myocardial injury secondary to sepsis
Electrolyte abnormality:
-Hyperkalemia resolved with insulin. Hypokalemia resolved
-Magnesium repleted
-Low sodium due to pseudohyponatremia, resolved
Normocytic anemia:
Likely combination of iron deficiency and chronic disease.
-No evidence of hemolysis or DIC
-H&H stable, transfuse if Hgb <7
Inm-rfpwjys-vqrwwactb diabetes mellitus:
-Hold metformin given lactic acidosis
-Continue Glipizide
Hypertension
CKD stage 3a
-Creatinine has stayed stable at 1.4
-Avoid nephrotoxic agents, follow BMP, renal dosing for meds
Hyperlipidemia:
-Hold statin given transaminitis
DVT prophylaxis: Subcu heparin
CODE STATUS: Full code
Anticipated Discharge: Today
Subjective/Interval History
-
Date of Service: November 26, 2024
Objective Data
-
Labs:
Laboratory Results
11/26/24
07:37
WBC Pending
Hgb Pending
Hct Pending
Plt Count Pending
Sodium Pending
Potassium Pending
Chloride Pending
Carbon Dioxide Pending
BUN Pending
Creatinine Pending
Glucose Pending
Calcium Pending
Total Bilirubin Pending
AST Pending
ALT Pending
Alkaline Phosphatase Pending
Vital Signs:
Vital Signs
Temp Pulse Resp BP Pulse Ox
98.9 F 78 18 117/61 98
11/26/24 03:57 11/26/24 05:53 11/26/24 03:57 11/26/24 05:53 11/26/24 03:57
I&O
11/25/24 11/26/24 11/27/24
06:59 06:59 06:59
Intake Total 803.8 / 803.8 1080 / 1080
Output Total 1075 / 1075
Balance -271.2 / -271.2 1080 / 1080
Review of Systems
-
History Source: Patient
Constitutional: Denies Fever
Respiratory: Reports Cough; Denies Trouble Breathing
Cardiac: Denies Chest Pain
Abdomen/GI: Reports Nausea (mild); Denies Abdominal Pain
Physical Exam
-
General: No Apparent Distress and Comfortable; Negative Respiratory Distress
HEENT: Normocephalic, Atraumatic and Moist Mucous Membranes
Respiratory: Clear to Auscultation and Non Labored Respirations; Negative Wheezes, Rales, Rhonchi or Crackles
Cardiac: S1/S2, Irregular Rhythm and Other (normal rate); Negative Rub or Calf Tenderness
GI: Soft, Nontender, Nondistended and Normal Bowel Sounds
Skin: Warm and Dry
Neuro: Awake, Alert and Oriented
Psych: Calm
[2024-11-26 08:04] LABS: Glucose - Point of Care 65 mg/dl (70-99)
[2024-11-26] MEDS: NOVOLOG FLEXPEN-LOW RESISTANCE SC ×2 (08:05→11:54)
[2024-11-26 08:15] LABS: Hematocrit 25.8 % (37.0-47.0); Mean Corpuscular Hgb 27.8 pg (27.0-31.0); Mean Corpuscular Volume 89.6 fL (81.0-99.0); Mean Platelet Volume 11.1 fL (7.4-10.4); Platelet Count 134 10^3/uL (130-400); Red Blood Cell Count 2.88 10^6/uL (4.20-5.40); Red Cell Dist. Width 15.7 % (11.5-14.5)
[2024-11-26 08:38] LABS: Glucose - Point of Care 91 mg/dl (70-99)
[2024-11-26 08:47] LABS: AST (SGOT) 485 U/L (14-36); Albumin 3.3 g/dl (3.5-5.0); Alkaline Phosphatase 127 U/L (38-126); Blood Urea Nitrogen 22 mg/dl (7-17); Calcium 8.6 mg/dl (8.4-10.2); Carbon Dioxide 23 mmol/L (22-30); Chloride 107 mmol/L (98-107); Estimated Creatinine Clearance 28 ml/min; Glucose 68 mg/dl (70-99); Potassium 3.7 mmol/L (3.5-5.1); Sodium 139 mmol/L (135-145); Total Bilirubin 1.4 mg/dl (0.2-1.3); Total Protein 5.6 g/dl (6.3-8.2); eGFR 38.51
[2024-11-26 09:12] LABS: ALT (SGPT) 1041 U/L (0-35)
--- NOTE | 2024-11-26 09:44 | W.PN.UPDATE ---
Update Note
Progress Note Update
I saw and evaluated the patient. I reviewed the resident�s note and agree with findings and plan as documented in the resident�s note.
No new complains.
Gen: NAD, Awake and alert, NCAT
Eyes: EOMI, PERRLA, no scleral icterus.
Neck: supple.
CV: remains tachy, irreg/irreg, +S1/S2, 2/6 ANTONIO
Resp: continues to remain CTAB anteriorly, no rales, wheezes, or rhonchi.
Abd: +BS, soft, NT, ND
Skin: No rashes.
Neuro: CN 2-12 intact, non-focal
Psych: Normal mood and affect.
11/19/24 22:01 Blood/Venous Blood Culture - Preliminary
No Growth in 4 days- Final report to follow
11/19/24 20:24 Blood/Venous Blood Culture - Preliminary
No Growth in 4 days- Final report to follow
11/20/24 11:04 Urine Urine Culture - Final
11/19/24 22:01 Nasal Swab Influenza Types A & B (ABBEY) - Final
Influenza A Positive, NAAT
CXR: Mild pneumonia in the medial right lung base.
CT A/P: Posterior right lower lobe pneumonia. Small parapneumonic effusion. Prominent gallbladder wall thickening. Subtle increased attenuation of sludge or concentrated bile within the lumen. No calcified gallstones identified. Acute cholecystitis
to be excluded. Progressive thickening/enlargement and indistinct margination of left adrenal gland, suggesting possible changes of inflammation/adrenalitis. Limited bowel evaluation secondary to lack of intravenous and oral contrast. No evidence of
bowel obstruction. Minor sigmoid diverticulosis. No evidence of acute diverticulitis. Trace free pelvic fluid.
Abd U/S: No evidence of cholelithiasis, gallbladder wall thickening or biliary tract dilatation. Approximate 5 cm simple right renal cyst.
Acute metabolic encephalopathy:
-Possibly due to transaminitis which was initially thought to be due to hypotension/hypoperfusion
-s/p NAC protocol as per GI
Transaminitis:
-Abd U/S above, unremarkable
-Acute viral hepatitis panel negative
-GI following
-s/p NAC protocol
-Transaminases improving
-likely due to influenza infection
Severe Sepsis:
-likely due to RLL PNA
-pt did not require pressors
-s/p IVF bolus for episode of hypotension
-Flu A POS
-BCxs NGTD
-completed 5 days Tamiflu
-completed 5 days Rocephin/Doxy, transitioned to Augmentin/Doxy (1 further day)
Acute AG met acidosis:
-due to severe sepsis and metformin causing lactic acidosis and DKA
-was on insulin gtt, now off
-AG currently 9, resolved
Permanent A-fib:
-s/p CV 09/16/24
-Eliquis on hold with acute liver injury
-was on cardizem gtt, now transitioned to PO Cardizem 11/24/24AM
-Propranolol restarted
Anemia:
-likely of chronic disease exacerbated by dilution due to IVFs
-Hb currently stable
Other problems:
Elevated troponin due to nonischemic myocardial injury
Hypokalemia, resolved
Hypomagnesemia, resolved
CKD3a: Baseline Cr 1.1-1.5, MODESTA has been ruled out
DM2: cont Glipizide/SSI/accuchecks/diabetic diet
Essential HTN: Holding all antihypertensives with hypotension
Hyperlipidemia: holding statin with transaminitis
FULL/heparin
Medically cleared for discharge. Case management aware.
Total time spent on d/c = 37 min. This included today's physical exam, progress note, review of laboratory and diagnostic data, preparation of discharge documents and prescriptions, and discussions about the pt's hospital course and discharge plan
with the patient and other medical service representative involved in the patient's care.
--- NOTE | 2024-11-26 10:47 | CM ---
Addendum entered by Maren Hernandez 11/26/24 12:00:
Per admissions at [facility] need to call report to [phone]
Original Note:
Patient has been accepted at [facility] today, updated patient's spouse this morning. No Auth required.
Plan; Skilled placement at [facility] today
[facility]
Report [id number]
[2024-11-26 11:29] LABS: Glucose - Point of Care 123 mg/dl (70-99)
[2024-11-26 11:32] VITALS: BP 130/73
[2024-11-26] MEDS: FLUSH (NSS) IV ×2 (11:54→11:55)
[2024-11-26] MEDS: CARDIZEM CD 120 MG PO (11:56)
--- NOTE | 2024-11-26 15:55 | W.DCSUMMARY ---
Discharge Summary
Discharge Data
Date of Admission: 11/19/24
Date of Discharge: 11/26/24
-
Pending Results: No
Hospital Course
Discharging Physician : Smita Wong MD; Carlitos Saravia MD.
Disposition : SNF
Primary care physician : Zach Moise MD.
Principal Discharge diagnosis : Severe sepsis, right lower lobe community-acquired pneumonia, influenza A, transaminitis, anion gap metabolic acidosis, lactic acidosis, diabetic ketoacidosis, hyperkalemia, A-fib with RVR, normocytic anemia,
nonischemic myocardial injury
Chronic Discharge diagnosis : hypertension, hyperlipidemia, permanent atrial fibrillation on Eliquis (JENNIFER cardioversion 09/16/2024), Non insulin dependent diabetes, mellitus, history of lung cancer, history of breast cancer
Hospital Course :
HPI:
79y F with PMH significant for A-Fib, hypertension and DM-II who presents to ED complaining of SOB. Patient states that she has been having increasing SOB for the past 1-2 days. She reports a few loose stools, mild cough. She denies any chest
pain, fevers / chills, abdominal pain or other focal / specific complaints. Patient presented to the ED for further evaluation and treatment. In the ED, she is noted to have marked lactic acidosis / multiple metabolic derangements. Patient
continues to complain of SOB. She is awake and alert and has no other symptoms / complaints.
Severe sepsis on arrival with no pressor requirements. Secondary to influenza A, possible bacterial superimposition. Rocephin, doxycycline and Tamiflu were started.
She was found to be hyperglycemic, hyperkalemic, with mildly elevated beta hydroxybutyrate, and anion gap metabolic acidosis. DKA protocol was started with insulin drip until anion gap was closed. Metabolic acidosis was also presumed to be caused
primarily by lactic acidosis secondary to metformin use/sepsis/diarrheal bicarb loss. She received one bicarb bolus, and lactic acidosis resolved. There was significant transaminitis, with abdominal ultrasound revealing no evidence of
cholelithiasis, gallbladder wall thickening or biliary tract dilatation. Acute rise of liver enzymes was presumed to be secondary to transient hypotensive state while septic, and influenza. Hepatitis B and C serologies were negative.
Blood and urine cultures were negative.
Eliquis was held for transaminitis, resumed shortly before discharge with resolving transaminitis.
Hyperkalemia, hypokalemia, hypomagnesemia were treated as appropriate.
For a-fib with rapid ventricular rate, diltiazem drip was started and successfully converted to p.o. Propranolol was restarted per cardiology recommendations.
Metformin was held throughout stay given lactic acidosis on arrival and kidney function. It was discontinued upon discharge, patient is to continue glipizide 5 mg daily.
Gabapentin and pregabalin were held throughout stay, to be continued if appropriate by PCP.
Patient continued to improve clinically and was deemed stable for discharge on 11/26.
She was discharged to SNF with the following recommendations:
Complete Augmentin/doxycycline therapy, last day 11/26/24
Follow-up with glassware maker demonstrator Dr. Enmanuel Solo in 2-3 weeks.
Follow-up with labor relations worker, Dr. Candelaria Dillard in 1 to 2 weeks
Follow-up shortly with PCP, Dr. Zach Moise
Check CMP and CBC in 1-2 weeks, script from PCP.
Important imaging findings :
Chest x-ray 11/19:
Mild pneumonia in the medial right lung base.
CT abd/pel without IV or oral contrast:
Posterior right lower lobe pneumonia. Small parapneumonic effusion. Prominent gallbladder wall thickening. Subtle increased attenuation of sludge or concentrated bile within the lumen. No calcified gallstones identified. Acute cholecystitis to be
excluded. Progressive thickening/enlargement and indistinct margination of left adrenal gland, suggesting possible changes of inflammation/adrenalitis. Limited bowel evaluation secondary to lack of intravenous and oral contrast. No evidence of bowel
obstruction. Minor sigmoid diverticulosis. No evidence of acute diverticulitis. Trace free pelvic fluid.
Abdomen ultrasound 11/20:
No evidence of cholelithiasis, gallbladder wall thickening or biliary tract dilatation. Approximate 5 cm simple right renal cyst
Discharge Plan
-
Patient Disposition: [facility]/SNF
Discharge Diagnosis/Procedures: Anion gap metabolic acidosis, diabetic ketoacidosis, lactic acidosis, sepsis, right lower lobe pneumonia, A-fib, normocytic anemia, transaminitis, nonischemic myocardial injury
Condition: Good
Diet: Low Sodium and Diabetic, Carb Controlled
Activity: As tolerated
Driving Restrictions: Not until seen by your Dr
Blood Work: CMP and CBC in 1-2 weeks, script from PCP
Referrals:
Enmanuel Solo MD [Active] - in two to three weeks (Or nurse practitioner)
Candelaria Dillard MD [Active] - in one to two weeks
Zach Wagner MD [Family Provider] - in less than 1 week
Prescriptions:
New
amoxicillin-pot clavulanate 500-125 mg Tablet
1 tab PO Q12 Qty: 0 0RF
Rx Instructions:
11/26/24 is last day
doxycycline hyclate 100 mg Capsule
100 mg PO Q12 Qty: 0 0RF
Rx Instructions:
11/26/24 last day
diltiazem HCl [Cardizem CD] 120 mg capsule,extended release 24hr
120 mg PO DAILY Qty: 1 0RF
atorvastatin [Lipitor] 10 mg tablet
10 mg PO HS Qty: 1 0RF
pantoprazole [Protonix] 40 mg tablet,delayed release (DR/EC)
40 mg PO DAILY Qty: 1 0RF
Continued
methotrexate sodium 2.5 mg Tablet
10 mg PO HERNANDEZ
alendronate [Fosamax] 70 mg Tablet
70 mg PO MO
Patient Comments:
once weekly every sunday morning
solifenacin 10 mg Tablet
10 mg PO DAILY
cholecalciferol (vitamin D3) [Vitamin D3] 25 mcg (1,000 unit) Tablet
25 mcg PO DAILY
polyethylene glycol 3350 [Miralax] 17 gram Powder In Packet
17 g PO DAILYPRN PRN (Reason: constipation)
therapeutic multivitamin Tablet
1 tab PO DAILY
leucovorin calcium 10 mg Tablet
10 mg PO HERNANDEZ
Patient Comments:
takes every sunday at bedtime
docusate sodium [Colace] 100 mg Capsule
100 mg PO DAILYPRN PRN (Reason: constipation)
Anoro Ellipta 62.5-25 mcg/actuation Blister With Device
1 inh INHALATION R DAILY
propranolol 60 mg Capsule,Extended Release 24 Hr
120 mg PO DAILY
acetaminophen 650 mg Tablet Extended Release
1,300 mg PO TID
melatonin 2.5 mg Tablet,Chewable
2.5 mg PO HS PRN (Reason: sleep)
Eliquis 5 mg Tablet
5 mg PO BID Qty: 60 0RF
Rx Instructions:
restart 11/27/24
Changed
glipizide 5 MG tablet
5 mg PO DAILY Qty: 0 0RF
Discontinued
metformin 500 MG tablet
1,500 mg PO .DAILYINMORNING
Patient Comments:
3 tablets in AM
2 tablets in PM
metformin 500 mg Tablet
1,000 mg PO QPM
simvastatin 20 mg Tablet
20 mg PO HS
gabapentin 100 mg Tablet
100 mg PO .DAILYINMORNING
gabapentin 100 mg Tablet
200 mg PO .DAILYINEVENING
pregabalin 75 mg Capsule
75 mg PO HS
Discharge Orders:
Discharge Patient (As Directed); Ordered 11/26/24
Ordered By: Carlitos Saravia
Discharge Date and Time
Discharge Date/Time: 11/26/24 13:58
Print Language: BELARUSIAN
== END 2024-11-26 13:58 | DRG 871 ==
LOC: 4 WEST ACU 22:06
PROVIDERS: Internal Medicine; Internal Medicine Infectious Disease; Nurse Practitioner Acute Care; Nurse Practitioner Adult Health; Nurse Practitioner Family; Nurse Practitioner Primary Care; Physician Assistant; Student in an Organized Health Care Education/Training Program; ADMITTING PHYSICIAN Hospitalist; ATTENDING PHYSICIAN Internal Medicine; CONSULT PHYSICIAN Internal Medicine Cardiovascular Disease; CONSULT PHYSICIAN Internal Medicine Critical Care Medicine; CONSULT PHYSICIAN Internal Medicine Gastroenterology; EMERGENCY PHYSICIAN Emergency Medicine; FAMILY PHYSICIAN Internal Medicine
DX: A41.89 Other specified sepsis (principal); E11.10 Type 2 diabetes mellitus with ketoacidosis without coma; G93.41 Metabolic encephalopathy; J10.00 Influenza due to other identified influenza virus with unspecified type of pneumonia; I48.21 Permanent atrial fibrillation; N17.9 Acute kidney failure, unspecified; I5A Non-ischemic myocardial injury (non-traumatic); J45.20 Mild intermittent asthma, uncomplicated; R65.20 Severe sepsis without septic shock; E87.5 Hyperkalemia; E83.42 Hypomagnesemia; D63.8 Anemia in other chronic diseases classified elsewhere; N18.30 Chronic kidney disease, stage 3 unspecified; E03.9 Hypothyroidism, unspecified; E78.00 Pure hypercholesterolemia, unspecified; E87.6 Hypokalemia; I08.1 Rheumatic disorders of both mitral and tricuspid valves; I12.9 Hypertensive chronic kidney disease with stage 1 through stage 4 chronic kidney disease, or unspecified chronic kidney disease; G25.0 Essential tremor; R74.01 Elevation of levels of liver transaminase levels; M06.9 Rheumatoid arthritis, unspecified; Z87.891 Personal history of nicotine dependence; Z20.822 Contact with and (suspected) exposure to COVID-19; Z96.651 Presence of right artificial knee joint; Z85.828 Personal history of other malignant neoplasm of skin; Z85.3 Personal history of malignant neoplasm of breast; Z85.118 Personal history of other malignant neoplasm of bronchus and lung; Z79.899 Other long term (current) drug therapy; Z79.84 Long term (current) use of oral hypoglycemic drugs; Z79.83 Long term (current) use of bisphosphonates; Z79.01 Long term (current) use of anticoagulants
CPT/HCPCS: 71045; 74176; 76700; 80048; 80053; 80076; 80143; 80179; 81003; 81015; 82010; 82077; 82140; 82533; 82550; 82607; 82746; 82805; 82962; 83010; 83036; 83540; 83550; 83605; 83615; 83735; 83880; 84100; 84132; 84443; 84484; 85014; 85018; 85025; 85027; 85045; 85379; 85384; 85610; 85730; 86704; 86706; 86708; 86803; 86850; 86900; 86901; 87040; 87086; 87340; 87502; 87811; 93005; 93306; 94640; 96365; 96375; 97163; 97167; 97530; 97535; 99285; J0132; J7030

== ENCOUNTER → 2024-12-01 10:13 | Outpatient (REF) | payer OTHER, MEDICARE, BC, SELFPAY ==
[2024-12-01 12:18] LABS: % Basophils 0.2 % (0-2); % Eosinophils 1.2 % (0-6); % Immature Granulocytes 0.5 % (0-0.5); % Lymphocytes 10.2 % (20.5-51.1); % Monocytes 9.7 % (1.7-9.3); % Neutrophils 78.2 % (42.2-75.2); Absolute Eosinophils 0.1 10^3/uL (0-0.7); Absolute Immature Granulocytes 0.1 10^3/uL (0-0.05); Absolute Lymphocytes 1.2 10^3/uL (1.2-3.4); Absolute Monocytes 1.1 10^3/uL (0.1-0.6); Absolute Neutrophils 8.8 10^3/uL (1.4-6.5); Hematocrit 26.4 % (37.0-47.0); Hemoglobin 8.4 g/dL (12.0-16.0); Mean Corp Hgb Conc. 31.8 g/dL (33.0-37.0); Mean Corpuscular Hgb 27.5 pg (27.0-31.0); Mean Corpuscular Volume 86.3 fL (81.0-99.0); Nucleated Red Blood Cells % 0 %; Platelet Count 235 10^3/uL (130-400); Red Blood Cell Count 3.06 10^6/uL (4.20-5.40); Red Cell Dist. Width 15.6 % (11.5-14.5); White Blood Cell Count 11.2 10^3/uL (4.8-10.8)
[2024-12-01 12:31] LABS: Blood Urea Nitrogen 25 mg/dl (7-17); Calcium 9.4 mg/dl (8.4-10.2); Carbon Dioxide 23 mmol/L (22-30); Chloride 101 mmol/L (98-107); Glucose 357 mg/dl (70-99); Potassium 2.8 mmol/L (3.5-5.1); Sodium 137 mmol/L (135-145); eGFR 46.33
== END ==
LOC: OLABP 10:13
PROVIDERS: ATTENDING PHYSICIAN Family Medicine
DX: A41.9 Sepsis, unspecified organism (principal); J18.9 Pneumonia, unspecified organism; E87.20 Acidosis, unspecified; E11.10 Type 2 diabetes mellitus with ketoacidosis without coma
CPT/HCPCS: 36415; 80048; 85025

== ENCOUNTER → 2024-12-02 10:01 | Outpatient (REF) | payer OTHER, MEDICARE, BC, SELFPAY ==
[2024-12-02 11:26] LABS: Blood Urea Nitrogen 22 mg/dl (7-17); Calcium 9.4 mg/dl (8.4-10.2); Carbon Dioxide 22 mmol/L (22-30); Chloride 104 mmol/L (98-107); Glucose 356 mg/dl (70-99); Potassium 3.8 mmol/L (3.5-5.1); Sodium 139 mmol/L (135-145); eGFR 51.43
== END ==
LOC: OLABP 10:01
PROVIDERS: ATTENDING PHYSICIAN Family Medicine
DX: A41.9 Sepsis, unspecified organism (principal); J18.9 Pneumonia, unspecified organism; J10.1 Influenza due to other identified influenza virus with other respiratory manifestations; I48.21 Permanent atrial fibrillation; E87.20 Acidosis, unspecified; E87.5 Hyperkalemia; E11.10 Type 2 diabetes mellitus with ketoacidosis without coma; D64.9 Anemia, unspecified; E78.5 Hyperlipidemia, unspecified; M06.9 Rheumatoid arthritis, unspecified; N18.30 Chronic kidney disease, stage 3 unspecified
CPT/HCPCS: 36415; 80048

== ENCOUNTER → 2024-12-03 09:22 | Outpatient (REF) | payer OTHER, MEDICARE, BC, SELFPAY ==
[2024-12-03 10:18] LABS: % Basophils 0.3 % (0-2); % Eosinophils 1.9 % (0-6); % Immature Granulocytes 0.6 % (0-0.5); % Lymphocytes 12.5 % (20.5-51.1); % Monocytes 8.5 % (1.7-9.3); % Neutrophils 76.2 % (42.2-75.2); Absolute Basophils 0.1 10^3/uL (0-0.2); Absolute Eosinophils 0.3 10^3/uL (0-0.7); Absolute Immature Granulocytes 0.1 10^3/uL (0-0.05); Absolute Lymphocytes 1.9 10^3/uL (1.2-3.4); Absolute Monocytes 1.3 10^3/uL (0.1-0.6); Absolute Neutrophils 11.4 10^3/uL (1.4-6.5); Hematocrit 28.7 % (37.0-47.0); Hemoglobin 8.6 g/dL (12.0-16.0); Mean Corpuscular Volume 90.3 fL (81.0-99.0); Mean Platelet Volume 11.1 fL (7.4-10.4); Nucleated Red Blood Cells % 0 %; Platelet Count 287 10^3/uL (130-400); Red Blood Cell Count 3.18 10^6/uL (4.20-5.40); Red Cell Dist. Width 15.8 % (11.5-14.5); White Blood Cell Count 14.9 10^3/uL (4.8-10.8)
== END ==
LOC: OLABP 09:22
PROVIDERS: ATTENDING PHYSICIAN Family Medicine
DX: A41.9 Sepsis, unspecified organism (principal); J18.9 Pneumonia, unspecified organism; I10 Essential (primary) hypertension; E87.20 Acidosis, unspecified; E87.5 Hyperkalemia; E11.10 Type 2 diabetes mellitus with ketoacidosis without coma; E78.5 Hyperlipidemia, unspecified; M06.9 Rheumatoid arthritis, unspecified; N18.30 Chronic kidney disease, stage 3 unspecified
CPT/HCPCS: 36415; 85025

== ENCOUNTER → 2024-12-04 09:50 | Outpatient (REF) | payer OTHER, MEDICARE, BC, SELFPAY ==
[2024-12-04 10:46] LABS: % Basophils 0.2 % (0-2); % Eosinophils 1.2 % (0-6); % Immature Granulocytes 0.6 % (0-0.5); % Lymphocytes 10.5 % (20.5-51.1); % Monocytes 7.8 % (1.7-9.3); % Neutrophils 79.7 % (42.2-75.2); Absolute Eosinophils 0.2 10^3/uL (0-0.7); Absolute Immature Granulocytes 0.1 10^3/uL (0-0.05); Absolute Lymphocytes 1.6 10^3/uL (1.2-3.4); Absolute Monocytes 1.2 10^3/uL (0.1-0.6); Absolute Neutrophils 12.5 10^3/uL (1.4-6.5); Hematocrit 29.7 % (37.0-47.0); Mean Corp Hgb Conc. 30.3 g/dL (33.0-37.0); Mean Corpuscular Hgb 27.6 pg (27.0-31.0); Mean Corpuscular Volume 91.1 fL (81.0-99.0); Mean Platelet Volume 10.9 fL (7.4-10.4); Nucleated Red Blood Cells % 0 %; Platelet Count 308 10^3/uL (130-400); Red Blood Cell Count 3.26 10^6/uL (4.20-5.40); Red Cell Dist. Width 15.9 % (11.5-14.5); White Blood Cell Count 15.6 10^3/uL (4.8-10.8)
== END ==
LOC: OLABP 09:50
PROVIDERS: ATTENDING PHYSICIAN Family Medicine
DX: A41.9 Sepsis, unspecified organism (principal); J18.9 Pneumonia, unspecified organism; J45.20 Mild intermittent asthma, uncomplicated; N18.30 Chronic kidney disease, stage 3 unspecified; M06.9 Rheumatoid arthritis, unspecified; E78.5 Hyperlipidemia, unspecified; D64.9 Anemia, unspecified; E11.10 Type 2 diabetes mellitus with ketoacidosis without coma; E87.5 Hyperkalemia; E87.20 Acidosis, unspecified; I48.21 Permanent atrial fibrillation
CPT/HCPCS: 36415; 85025

== ENCOUNTER → 2024-12-05 10:04 | Outpatient (REF) | payer OTHER, MEDICARE, BC, SELFPAY ==
[2024-12-05 11:37] LABS: % Basophils 0.3 % (0-2); % Eosinophils 1.1 % (0-6); % Immature Granulocytes 0.7 % (0-0.5); % Lymphocytes 8.8 % (20.5-51.1); % Monocytes 5.3 % (1.7-9.3); % Neutrophils 83.8 % (42.2-75.2); Absolute Eosinophils 0.1 10^3/uL (0-0.7); Absolute Immature Granulocytes 0.1 10^3/uL (0-0.05); Absolute Lymphocytes 1.1 10^3/uL (1.2-3.4); Absolute Monocytes 0.6 10^3/uL (0.1-0.6); Absolute Neutrophils 10.1 10^3/uL (1.4-6.5); Hematocrit 27.7 % (37.0-47.0); Hemoglobin 8.3 g/dL (12.0-16.0); Mean Corpuscular Volume 90.2 fL (81.0-99.0); Mean Platelet Volume 10.9 fL (7.4-10.4); Nucleated Red Blood Cells % 0 %; Platelet Count 279 10^3/uL (130-400); Red Blood Cell Count 3.07 10^6/uL (4.20-5.40); Red Cell Dist. Width 16.1 % (11.5-14.5)
[2024-12-05 12:05] LABS: Urine Albumin 2+ (Neg - Trace); Urine Bilirubin Negative (Negative); Urine Character Clear (Clear); Urine Color Yellow; Urine Glucose 4+ (Negative); Urine Ketone Negative (Negative); Urine Leukocyte Negative (Negative); Urine Nitrite Negative (Negative); Urine Occult Blood Negative (Negative); Urine Specific Gravity 1.015 (<1.030); Urine Urobilinogen Negative (Neg - 1+)
[2024-12-05 12:14] LABS: ALT (SGPT) 109 U/L (0-35); AST (SGOT) 30 U/L (14-36); Albumin 2.9 g/dl (3.5-5.0); Alkaline Phosphatase 198 U/L (38-126); Blood Urea Nitrogen 25 mg/dl (7-17); Calcium 9.2 mg/dl (8.4-10.2); Carbon Dioxide 25 mmol/L (22-30); Chloride 105 mmol/L (98-107); Glucose 359 mg/dl (70-99); Potassium 4.1 mmol/L (3.5-5.1); Sodium 136 mmol/L (135-145); Total Bilirubin 0.8 mg/dl (0.2-1.3); Total Protein 5.5 g/dl (6.3-8.2); eGFR 46.33
[2024-12-05 12:52] LABS: Urine Bacteria Few (Negative); Urine Red Blood Cell 0-2 /HPF (0-2); Urine Squamous Cell >30 /LPF (Few)
== END ==
LOC: OLABP 10:04
PROVIDERS: ATTENDING PHYSICIAN Family Medicine
DX: A41.9 Sepsis, unspecified organism (principal); J18.9 Pneumonia, unspecified organism; J10.1 Influenza due to other identified influenza virus with other respiratory manifestations; I10 Essential (primary) hypertension; I48.21 Permanent atrial fibrillation
CPT/HCPCS: 36415; 80053; 81003; 81015; 85025; 87077; 87086

== ENCOUNTER → 2024-12-15 10:51 | Outpatient (REF) | payer MEDICARE, BC, SELFPAY ==
[2024-12-15 11:38] LABS: % Basophils 0.8 % (0-2); % Eosinophils 1.4 % (0-6); % Immature Granulocytes 0.7 % (0-0.5); % Lymphocytes 11.8 % (20.5-51.1); % Monocytes 5.8 % (1.7-9.3); % Neutrophils 79.5 % (42.2-75.2); Absolute Basophils 0.1 10^3/uL (0-0.2); Absolute Eosinophils 0.1 10^3/uL (0-0.7); Absolute Immature Granulocytes 0.1 10^3/uL (0-0.05); Absolute Monocytes 0.5 10^3/uL (0.1-0.6); Absolute Neutrophils 6.8 10^3/uL (1.4-6.5); Hematocrit 29.2 % (37.0-47.0); Hemoglobin 8.4 g/dL (12.0-16.0); Mean Corp Hgb Conc. 28.8 g/dL (33.0-37.0); Mean Corpuscular Volume 90.4 fL (81.0-99.0); Mean Platelet Volume 9.9 fL (7.4-10.4); Nucleated Red Blood Cells % 0 %; Platelet Count 257 10^3/uL (130-400); Red Blood Cell Count 3.23 10^6/uL (4.20-5.40); Red Cell Dist. Width 15.8 % (11.5-14.5); White Blood Cell Count 8.6 10^3/uL (4.8-10.8)
[2024-12-15 12:30] LABS: ALT (SGPT) 32 U/L (0-35); AST (SGOT) 27 U/L (14-36); Albumin 3.7 g/dl (3.5-5.0); Alkaline Phosphatase 142 U/L (38-126); Blood Urea Nitrogen 21 mg/dl (7-17); Calcium 9.4 mg/dl (8.4-10.2); Carbon Dioxide 25 mmol/L (22-30); Chloride 105 mmol/L (98-107); Glucose 160 mg/dl (70-99); Potassium 4.8 mmol/L (3.5-5.1); Sodium 140 mmol/L (135-145); Total Bilirubin 0.8 mg/dl (0.2-1.3); Total Protein 6.6 g/dl (6.3-8.2); eGFR 46.33
== END ==
LOC: REG 10:51
PROVIDERS: ATTENDING PHYSICIAN Nurse Practitioner; FAMILY PHYSICIAN Internal Medicine
DX: E11.65 Type 2 diabetes mellitus with hyperglycemia (principal); E53.8 Deficiency of other specified B group vitamins; D64.9 Anemia, unspecified
CPT/HCPCS: 36415; 80053; 85025

== ENCOUNTER → 2024-12-17 11:25 | Outpatient (REF) | payer MEDICARE, BC, SELFPAY | LOC: RAD 11:25 | PROVIDERS: ATTENDING PHYSICIAN Nurse Practitioner Adult Health | DX: Z87.01 Personal history of pneumonia (recurrent) (principal) | CPT/HCPCS: 71046 ==

== ENCOUNTER → 2024-12-22 09:05 | Outpatient (REF) | payer MEDICARE, BC, SELFPAY | LOC: MRI 3T 09:05 | PROVIDERS: ATTENDING PHYSICIAN Specialist; FAMILY PHYSICIAN Internal Medicine | DX: M54.12 Radiculopathy, cervical region (principal) | CPT/HCPCS: 72141 ==

== ENCOUNTER → 2025-01-12 10:02 | Outpatient (REF) | payer MEDICARE, BC, SELFPAY ==
[2025-01-12 10:46] LABS: % Basophils 0.4 % (0-2); % Eosinophils 2.2 % (0-6); % Immature Granulocytes 0.7 % (0-0.5); % Lymphocytes 8.1 % (20.5-51.1); % Monocytes 5.9 % (1.7-9.3); % Neutrophils 82.7 % (42.2-75.2); Absolute Basophils 0.1 10^3/uL (0-0.2); Absolute Eosinophils 0.3 10^3/uL (0-0.7); Absolute Immature Granulocytes 0.1 10^3/uL (0-0.05); Absolute Lymphocytes 0.9 10^3/uL (1.2-3.4); Absolute Monocytes 0.7 10^3/uL (0.1-0.6); Absolute Neutrophils 9.5 10^3/uL (1.4-6.5); Hematocrit 29.5 % (37.0-47.0); Hemoglobin 8.6 g/dL (12.0-16.0); Mean Corp Hgb Conc. 29.2 g/dL (33.0-37.0); Mean Corpuscular Hgb 25.4 pg (27.0-31.0); Mean Platelet Volume 9.7 fL (7.4-10.4); Nucleated Red Blood Cells % 0 %; Platelet Count 288 10^3/uL (130-400); Red Blood Cell Count 3.39 10^6/uL (4.20-5.40); Red Cell Dist. Width 17.2 % (11.5-14.5); White Blood Cell Count 11.5 10^3/uL (4.8-10.8)
[2025-01-12 11:14] LABS: Albumin 3.8 g/dl (3.5-5.0); Blood Urea Nitrogen 20 mg/dl (7-17); Carbon Dioxide 25 mmol/L (22-30); Chloride 102 mmol/L (98-107); Glucose 393 mg/dl (70-99); Phosphorus 3.7 mg/dl (2.5-4.5); Potassium 4.3 mmol/L (3.5-5.1); Sodium 139 mmol/L (135-145); eGFR 57.66
[2025-01-12 11:28] LABS: Glycohemoglobin (HgbA1c) 8.6 % (4.0-5.6)
[2025-01-12 12:02] LABS: Vitamin B12 710 pg/ml (239-931)
== END ==
LOC: REG 10:02
PROVIDERS: ATTENDING PHYSICIAN Internal Medicine
DX: E11.9 Type 2 diabetes mellitus without complications (principal); D64.9 Anemia, unspecified; E11.65 Type 2 diabetes mellitus with hyperglycemia; E53.8 Deficiency of other specified B group vitamins
CPT/HCPCS: 36415; 80069; 82607; 83036; 85025

== ENCOUNTER → 2025-01-30 10:53 | Outpatient (REF) | payer MEDICARE, BC, SELFPAY ==
[2025-02-01 07:27] LABS: Quantiferon Mitogen minus NIL 9.93 IU/mL; Quantiferon NIL 0.07 IU/mL; Quantiferon TB Gold Plus Negative (Negative)
== END ==
LOC: REG 10:53
PROVIDERS: ATTENDING PHYSICIAN Physician Assistant; FAMILY PHYSICIAN Internal Medicine
DX: Z11.1 Encounter for screening for respiratory tuberculosis (principal); Z51.81 Encounter for therapeutic drug level monitoring
CPT/HCPCS: 36415; 86140; 86480

== ENCOUNTER → 2025-02-03 16:42 | Outpatient (REF) | payer MEDICARE, BC, SELFPAY ==
[2025-02-03 17:23] LABS: Hemoglobin 9.8 g/dL (12.0-16.0); Mean Corp Hgb Conc. 28.8 g/dL (33.0-37.0); Mean Corpuscular Hgb 27.1 pg (27.0-31.0); Mean Corpuscular Volume 94.2 fL (81.0-99.0); Mean Platelet Volume 11.1 fL (7.4-10.4); Platelet Count 258 10^3/uL (130-400); Red Blood Cell Count 3.61 10^6/uL (4.20-5.40); Red Cell Dist. Width 23.8 % (11.5-14.5); White Blood Cell Count 10.6 10^3/uL (4.8-10.8)
[2025-02-03 17:27] LABS: Albumin 3.8 g/dl (3.5-5.0); Blood Urea Nitrogen 25 mg/dl (7-17); Calcium 9.3 mg/dl (8.4-10.2); Carbon Dioxide 22 mmol/L (22-30); Chloride 101 mmol/L (98-107); Glucose 353 mg/dl (70-99); Phosphorus 2.3 mg/dl (2.5-4.5); Potassium 5.2 mmol/L (3.5-5.1); Sodium 137 mmol/L (135-145); eGFR > 60.00
[2025-02-03 17:51] LABS: % Basophils 0.6 % (0-2); % Eosinophils 1.1 % (0-6); % Immature Granulocytes 0.5 % (0-0.5); % Lymphocytes 7.3 % (20.5-51.1); % Monocytes 5.2 % (1.7-9.3); % Neutrophils 85.3 % (42.2-75.2); Absolute Basophils 0.1 10^3/uL (0-0.2); Absolute Eosinophils 0.1 10^3/uL (0-0.7); Absolute Immature Granulocytes 0.1 10^3/uL (0-0.05); Absolute Lymphocytes 0.8 10^3/uL (1.2-3.4); Absolute Monocytes 0.6 10^3/uL (0.1-0.6); Anisocytosis 2+; Normal RBC Morphology No; Nucleated Red Blood Cells % 0 %
[2025-02-03 17:52] LABS: Microcytosis 3+; Ovalocytes Occasional; Stomatocytes Occasional; Tear Drop Red Blood Cells Occasional
== END ==
LOC: CLAB 16:42
PROVIDERS: ATTENDING PHYSICIAN Internal Medicine
DX: E11.65 Type 2 diabetes mellitus with hyperglycemia (principal); E78.5 Hyperlipidemia, unspecified
CPT/HCPCS: 36415; 80069; 85025

== ENCOUNTER → 2025-03-13 10:24 | Outpatient (REF) | payer MEDICARE, BC, SELFPAY ==
[2025-03-13 12:20] LABS: % Basophils 0.8 % (0-2); % Eosinophils 2.8 % (0-6); % Immature Granulocytes 0.7 % (0-0.5); % Monocytes 8.9 % (1.7-9.3); % Neutrophils 74.8 % (42.2-75.2); Absolute Basophils 0.1 10^3/uL (0-0.2); Absolute Eosinophils 0.3 10^3/uL (0-0.7); Absolute Immature Granulocytes 0.1 10^3/uL (0-0.05); Absolute Lymphocytes 1.2 10^3/uL (1.2-3.4); Absolute Monocytes 0.9 10^3/uL (0.1-0.6); Absolute Neutrophils 7.6 10^3/uL (1.4-6.5); Hemoglobin 10.8 g/dL (12.0-16.0); Mean Corp Hgb Conc. 31.8 g/dL (33.0-37.0); Mean Corpuscular Hgb 30.3 pg (27.0-31.0); Mean Corpuscular Volume 95.2 fL (81.0-99.0); Mean Platelet Volume 10.1 fL (7.4-10.4); Nucleated Red Blood Cells % 0 %; Platelet Count 278 10^3/uL (130-400); Red Blood Cell Count 3.57 10^6/uL (4.20-5.40); Red Cell Dist. Width 22.2 % (11.5-14.5); White Blood Cell Count 10.1 10^3/uL (4.8-10.8)
[2025-03-13 12:45] LABS: Albumin 4.3 g/dl (3.5-5.0); Blood Urea Nitrogen 28 mg/dl (7-17); Calcium 10.3 mg/dl (8.4-10.2); Carbon Dioxide 24 mmol/L (22-30); Chloride 105 mmol/L (98-107); Glucose 363 mg/dl (70-99); Iron 64 ug/dl (37-170); Phosphorus 4.1 mg/dl (2.5-4.5); Potassium 5.2 mmol/L (3.5-5.1); Sodium 140 mmol/L (135-145); eGFR > 60.00
[2025-03-13 12:54] LABS: Percent Saturation 21 % (20-50); Total Iron Binding Capacity 299 ug/dl (265-497)
[2025-03-13 13:16] LABS: Anisocytosis 1+; Hypochromasia Slight; Normal RBC Morphology No; Polychromasia 1+; Stomatocytes 1+
== END ==
LOC: REG 10:24
PROVIDERS: ATTENDING PHYSICIAN Nurse Practitioner Adult Health; FAMILY PHYSICIAN Internal Medicine
DX: E53.9 Vitamin B deficiency, unspecified (principal); D64.9 Anemia, unspecified; R63.4 Abnormal weight loss; E11.9 Type 2 diabetes mellitus without complications; C34.12 Malignant neoplasm of upper lobe, left bronchus or lung; R59.0 Localized enlarged lymph nodes; N64.4 Mastodynia; D50.0 Iron deficiency anemia secondary to blood loss (chronic)
CPT/HCPCS: 36415; 80069; 82728; 83540; 83550; 85025

== ENCOUNTER → 2025-03-23 08:23 | Outpatient (REF) | payer MEDICARE, BC, SELFPAY ==
[2025-03-23 10:47] LABS: Blood Urea Nitrogen 23 mg/dl (7-17); Calcium 10.9 mg/dl (8.4-10.2); Carbon Dioxide 24 mmol/L (22-30); Chloride 104 mmol/L (98-107); Glucose 337 mg/dl (70-99); Potassium 5.6 mmol/L (3.5-5.1); Sodium 140 mmol/L (135-145); eGFR > 60.00
== END ==
LOC: REG 08:23
PROVIDERS: ATTENDING PHYSICIAN Specialist; FAMILY PHYSICIAN Internal Medicine
DX: N28.1 Cyst of kidney, acquired (principal)
CPT/HCPCS: 36415; 80048

== ENCOUNTER → 2025-04-06 10:26 | Outpatient (REF) | payer MEDICARE, BC, SELFPAY | LOC: RAD 10:26 | PROVIDERS: ATTENDING PHYSICIAN Specialist; FAMILY PHYSICIAN Internal Medicine | DX: N28.1 Cyst of kidney, acquired (principal) | CPT/HCPCS: 74170; Q9967 ==

== ENCOUNTER → 2025-04-06 11:26 | Outpatient (REF) | payer MEDICARE, BC, SELFPAY ==
[2025-04-06 12:41] LABS: % Basophils 0.3 % (0-2); % Eosinophils 0.6 % (0-6); % Immature Granulocytes 0.4 % (0-0.5); % Lymphocytes 9.8 % (20.5-51.1); % Monocytes 5.7 % (1.7-9.3); % Neutrophils 83.2 % (42.2-75.2); Absolute Eosinophils 0.1 10^3/uL (0-0.7); Absolute Monocytes 0.6 10^3/uL (0.1-0.6); Absolute Neutrophils 8.5 10^3/uL (1.4-6.5); Hematocrit 33.8 % (37.0-47.0); Hemoglobin 10.9 g/dL (12.0-16.0); Mean Corp Hgb Conc. 32.2 g/dL (33.0-37.0); Mean Corpuscular Hgb 31.1 pg (27.0-31.0); Mean Corpuscular Volume 96.3 fL (81.0-99.0); Mean Platelet Volume 9.4 fL (7.4-10.4); Nucleated Red Blood Cells % 0 %; Platelet Count 265 10^3/uL (130-400); Red Blood Cell Count 3.51 10^6/uL (4.20-5.40); Red Cell Dist. Width 19.1 % (11.5-14.5); White Blood Cell Count 10.2 10^3/uL (4.8-10.8)
[2025-04-06 13:28] LABS: ALT (SGPT) 16 U/L (0-35); AST (SGOT) 18 U/L (14-36); Albumin 4.5 g/dl (3.5-5.0); Alkaline Phosphatase 129 U/L (38-126); Blood Urea Nitrogen 41 mg/dl (7-17); Calcium 10.6 mg/dl (8.4-10.2); Carbon Dioxide 23 mmol/L (22-30); Chloride 100 mmol/L (98-107); Glucose 495 mg/dl (70-99); Sodium 137 mmol/L (135-145); Total Bilirubin 0.7 mg/dl (0.2-1.3); Total Protein 7.6 g/dl (6.3-8.2); eGFR > 60.00
== END ==
LOC: SDSPAT 11:26
PROVIDERS: ATTENDING PHYSICIAN Internal Medicine Cardiovascular Disease; FAMILY PHYSICIAN Internal Medicine; REFERRING PHYSICIAN Internal Medicine Cardiovascular Disease
DX: M06.9 Rheumatoid arthritis, unspecified (principal); I48.19 Other persistent atrial fibrillation
CPT/HCPCS: 36415; 80053; 85025; 86850; 86900; 86901; 93005

== ENCOUNTER → 2025-04-06 12:56 | Outpatient (REF) | payer MEDICARE, BC, SELFPAY | LOC: RAD 12:56 | PROVIDERS: ATTENDING PHYSICIAN Physician Assistant Medical; FAMILY PHYSICIAN Internal Medicine | DX: C79.31 Secondary malignant neoplasm of brain (principal); I61.9 Nontraumatic intracerebral hemorrhage, unspecified; I69.319 Unspecified symptoms and signs involving cognitive functions following cerebral infarction | CPT/HCPCS: 70450 ==

== ENCOUNTER 2025-04-09 06:43 | Day surgery (SDC) | payer MEDICARE, BC, SELFPAY ==
[2025-04-06 12:10] VITALS: BMI 21.1
[2025-04-09] VITALS (13 sets, daily range): BP systolic 114–155; BP diastolic 46–92; BMI 21.1
[2025-04-09 07:48] LABS: Glucose - Point of Care 239 mg/dl (70-99)
[2025-04-09 10:25] LABS: ACT-LR - POC 393 Seconds (116-155)
[2025-04-09 10:40] LABS: ACT-LR - POC 334 Seconds (116-155)
--- NOTE | 2025-04-09 11:06 | ITS.CL.ABL ---
[employer] - Ablation
Ablation
Procedure Report:
AFIB ablation:
Ms. Mota is a very pleasant 80 yr old gentleman with symptomatic persistent AF and atypical atrial flutter, is recommended for atrial fibrillation ablation.
Date of the Procedure:
04/09/2025
Indications:
Persistent atrial fibrillation
Pre-Operative Diagnosis:
Persistent atrial fibrillation
Post-Operative Diagnosis:
Persistent atrial fibrillation
Procedure Performed:
Atrial fibrillation ablation with Pulsed-Field approach for pulmonary vein isolation
Roof line formation for atypical atrial flutter
Posterior wall isolation
Performing Physician:
Tori Wright MD
Assistants:
EP staff
Anesthesia:
See anesthesia records
Detailed Description of the Procedure:
Written informed consent was obtained from the patient after a full explanation of the risks and benefits of the procedure including the risks of sedation and anesthesia.
The patient was brought to the electrophysiology laboratory in stable condition in fasting state. Continuous electrocardiographic and hemodynamic monitoring was initiated.
The initial rhythm was atrial fibrillation.
The procedure site was meticulously prepared with surgical scrub and allowed to dry with no pooling. Sterile draping was applied to cover the procedure site. The image intensifier was draped with sterile bag and positioned over the patient. After
infusion of local anesthetic, vascular access was obtained under ultrasound guidance and sheaths were placed over guide wire as detailed below.
Sheath and Catheter Placement:
The following catheters / sheaths were placed
Sheaths:
��������� 17Fr steerable sheath (Faradrive�, TOTEMS (formerly Nitrogram)) in right femoral
��������� 9Fr in right femoral vein
Catheters:
��������� ZEE HD Grid mapping catheter � at locations of RA, LA
��������� Farawave� PFA catheter
��������� ICE catheter -AcuNav - at locations of RA, SVC, and RV.
Intracardiac ECHO:
An 8-Macanese AcuNav intracardiac ECHO (ICE) probe was advanced through the 9-Macanese sheath in the right femoral vein into the right atrium under fluoroscopic and ICE ultrasound image guidance and a baseline ECHO study was performed. The left atrial
size was dilated. There was moderate tricuspid regurgitation. There was sclerotic aortic valve with probably significant stenosis. The mitral valve has MAC and at least moderate regurgitation. There was moderate left ventricular systolic
dysfunctions with LVEF at around 40%. There is trace pericardial effusion. All the four veins were identified and has flow identified. There was good flow noted in the SUJEY.
During the procedure, ICE was used for monitoring of complications, guidance of trans-septal puncture, monitor the catheter position and tracking ablation lesions. No change in the pericardial space noted throughout the procedure.
Trans-septal Puncture:
Heparin was initiated and infused to maintain appropriate ACT. A pigtail guidewire was advanced through the 8-Macanese sheath in the right femoral vein into the superior vena cava under fluoroscopic and ICE guidance. The 9-Macanese sheath was exchanged
for a Faradrive sheath which was advanced into the superior vena cava. A transseptal VersaCross RF pigtail via Faradrive connect system was utilized to perform the trans-septal puncture. The apparatus was withdrawn until it was in contact with the
fossa ovalis. The position was adjusted based on fluoroscopy and ultrasound images from ICE. Under fluoroscopic, hemodynamic and ICE ultrasound guidance, left atrium was cannulated by applying RF energy. Once atrial septum was cannulated, the
pigtail wire was advanced into the left atrium. The guide wire was advanced into the left superior pulmonary vein. Both the sheath and the dilator was advanced into the left atrium. The dilator with the needle was withdrawn. Blood was aspirated from
the Faradrive sheath and arterial blood confirmed. The sheath was flushed. Saline injection noted into the left atrium on ICE. The mapping catheter was advanced in the sheath into the left pulmonary vein. Left atrial pressure was measured.
3D Electroanatomic Mapping:
Using the HD Grid catheter advanced through sheath into the left atrium, an electroanatomic map (EAM) of the left atrium was created using [employer] ZEE mapping system. The map was used for localization of catheter position and tacking of ablation
lesions.
The EAM of the left atrium showed 4 pulmonary veins (2 right sided and 2 left sided) with all veins electrically connected to the body the LA. It showed extensive areas of low voltage on the posterior and anterior wall of the LA in AF. There was
scar on the anterior wall but had good signals in the SUJEY and the floor of the LA. The LA was dilated in size.
Following the EAM, preparation were made for ablation.
Ablation:
Ablation # 1: Pulmonary vein Isolation:
Glycopyrrolate 0.2 mg was given prior to the placement of ablation. Using Farawave pulsed field ablation system, pulmonary vein isolation was achieved. First the ablation catheter was placed in the LSPV and ostial ablation lesions were performed in
an �[place]� formation of the Farawave configuration and a counter clock nails rotation was done and ablated to cover the area between the electrodes. Then the catheter was placed on the antral location in �Flower� configuration and multiple ablation
lesions were placed circumferentially on the antrum of the vein.
In the similar fashion, the LIPV were isolated.
Then the catheter was moved to right sided veins. The ostial and antral ablations were placed as noted above.
Patient remained in atrial fibrillation with organization in the roof area.
Ablation #2: Roof dependent flutter ablation
Patient had hx of atrial flutter and the rhythm was switching from AF to FL to AF during the case. The flutter was coming from the LA. The entrainment could not be done due to degeneration into atrial fibrillation.
This was consistent with roof dependent atrial flutter karthik with extensive scar on the posterior wall and channels conduction on the posterior wall.
Using the pulsed field ablation catheter, the catheter was placed between left superior pulmonary vein and right severe pulmonary vein with series of overlapping ablation lesions placed.
Ablation # 3: Posterior wall isolation:
Using the pulsed field ablation catheter, the catheter was placed between left superior pulmonary vein and right severe pulmonary vein with series of overlapping ablation lesions placed.
Using the pulsed field ablation catheter, the catheter was placed on the posterior wall and moved around the posterior wall to have adequate contact and ablations were placed isolating the posterior wall.
Cardioversion:
Once the PV isolation was achieved, decision was made to proceed with cardioversion. A 200 J biphasic shock was applied on the jo-ann posterior Zoll patches and sinus rhythm was achieved. No significant pause noted.
EPS and Confirmation of the PVI and bidirectional block:
Following achievement of entrance block at the pulmonary veins, pacing from the HD catheter in each of the four veins at 10 milliamps for 2 milliseconds showed entrance and exit block. All PVI were rechecked at the end of the case and remained
isolated. Entrance and exit block were demonstrated in all veins.
Post ablation Electroanatomic mapping:
Once ablation was completed, the EAM of the LA was done again in sinus rhythm with excellent demarcation of LA myocardium and isolated antral tissue.
The SUJEY had healthy signals and was not isolated.
Procedure End
ICE study was done again that showed no epicardial accumulation. No complications noted.
Following the completion of the EP study, catheters were removed. Protamine 40 mg was given at the end of the procedure and ACT was checked repeatedly. The sheaths were removed and hemostasis achieved with �Figure of 8� and manual compression after
acceptable ACT is achieved.
Left atrial Pressure:
Mean LA pressure was 27mmHg (Large v wave due to mitral regurgitation)
Mean RA pressure was 12 mmHg.
Estimated Blood loss:
<10 cc
Specimens Removed:
None.
Implants / Devices:
None
Urine output:
None
Packs / Drains/ Tubes:
None
Instrument / Sponge Count Correct:
Yes
Complications of the Procedure:
None
Condition of Patient at Time of Transfer:
Hemodynamically stable with no neurological or vascular compromise.
Summary:
Successful atrial fibrillation ablation with Pulsed Field approach for pulmonary vein isolation, roof dependent flutter ablation and posterior wall isolation. .
Figures from the Procedure:
Figure 1: The electroanatomic mapping (EAM) of the left atrium with bipolar voltage (purple indicates normal electrical activity with vale as no myocardial muscle electric activity indicating a line of block or scar.
[2025-04-09 11:27] LABS: Glucose - Point of Care 299 mg/dl (70-99)
[2025-04-09] MEDS: NOVOLOG vial 2 UNITS SC (11:37)
[2025-04-09] MEDS: NOVOLOG vial 1 UNITS SC (13:29)
[2025-04-09 13:37] LABS: Glucose - Point of Care 227 mg/dl (70-99)
--- NOTE | 2025-04-09 16:10 | W.PN.UPDATE ---
Update Note
Progress Note Update
80 yo WF s/p PVI (same day). She denies cp,sob, lou diet, voiding, R fem site c/d/i, soft, after getting oob she had pooped her groin, manual pressure held and BR for 1 hr, EKG SR. She will resume Eliquis tonight. She will stop diltiazem and
propanolol and start metoprolol xl 50mg bid. Activity restrictions reviewed. She will f/u [employer] in 2 weeks. She is for d/c home after 530p if groin remains stable.
[2025-04-13 06:33] LABS: Glucose - Point of Care 281 mg/dl (70-99)
== END 2025-04-09 17:00 | disposition home or self-care (01) ==
LOC: CATH 06:43
PROVIDERS: ATTENDING PHYSICIAN Internal Medicine Cardiovascular Disease; FAMILY PHYSICIAN Internal Medicine; OTHER PHYSICIAN Internal Medicine Cardiovascular Disease
DX: I48.19 Other persistent atrial fibrillation (principal); R53.1 Weakness; E11.10 Type 2 diabetes mellitus with ketoacidosis without coma; E78.5 Hyperlipidemia, unspecified; I10 Essential (primary) hypertension; J45.20 Mild intermittent asthma, uncomplicated; I48.4 Atypical atrial flutter; M06.9 Rheumatoid arthritis, unspecified; N28.89 Other specified disorders of kidney and ureter; M81.0 Age-related osteoporosis without current pathological fracture; Z79.01 Long term (current) use of anticoagulants; Z79.631 Long term (current) use of antimetabolite agent; Z79.84 Long term (current) use of oral hypoglycemic drugs; Z79.899 Other long term (current) drug therapy; Z85.3 Personal history of malignant neoplasm of breast; Z85.118 Personal history of other malignant neoplasm of bronchus and lung; Z87.891 Personal history of nicotine dependence; Z90.49 Acquired absence of other specified parts of digestive tract; I49.8 Other specified cardiac arrhythmias; E53.8 Deficiency of other specified B group vitamins; R41.89 Other symptoms and signs involving cognitive functions and awareness
CPT/HCPCS: C1732; C1894; C1769; C1892; C1759; 82962; 85347; 93005; 93655; 93656; 93657; C1733; C1766

== ENCOUNTER → 2025-05-15 08:34 | Outpatient (REF) | payer MEDICARE, BC, SELFPAY ==
[2025-05-15 09:22] LABS: Hematocrit 34.8 % (37.0-47.0); Hemoglobin 10.9 g/dL (12.0-16.0); Mean Corp Hgb Conc. 31.3 g/dL (33.0-37.0); Mean Corpuscular Volume 101.2 fL (81.0-99.0); Nucleated Red Blood Cells % 0 %; Platelet Count 272 10^3/uL (130-400); Red Cell Dist. Width 14.2 % (11.5-14.5)
[2025-05-15 11:45] LABS: ALT (SGPT) 13 U/L (0-35); AST (SGOT) 22 U/L (14-36); Albumin 4.4 g/dl (3.5-5.0); Alkaline Phosphatase 101 U/L (38-126); Blood Urea Nitrogen 31 mg/dl (7-17); Calcium 10.4 mg/dl (8.4-10.2); Carbon Dioxide 25 mmol/L (22-30); Chloride 106 mmol/L (98-107); Glucose 174 mg/dl (70-99); Potassium 5.1 mmol/L (3.5-5.1); Sodium 142 mmol/L (135-145); Total Protein 7.6 g/dl (6.3-8.2); eGFR > 60.00
[2025-05-15 12:33] LABS: C-Reactive Protein 30.70 mg/L (0.0-10.00)
[2025-05-15 13:32] LABS: Glycohemoglobin (HgbA1c) 8.2 % (4.0-5.6)
== END ==
LOC: REG 08:34
PROVIDERS: ATTENDING PHYSICIAN Internal Medicine Rheumatology; FAMILY PHYSICIAN Internal Medicine
DX: M81.0 Age-related osteoporosis without current pathological fracture (principal); Z51.81 Encounter for therapeutic drug level monitoring; M05.9 Rheumatoid arthritis with rheumatoid factor, unspecified; E11.65 Type 2 diabetes mellitus with hyperglycemia; D64.9 Anemia, unspecified; G62.9 Polyneuropathy, unspecified
CPT/HCPCS: 36415; 80053; 83036; 85025; 86140

== ENCOUNTER → 2025-06-01 09:10 | Outpatient (REF) | payer MEDICARE, BC, SELFPAY ==
[2025-06-01 11:00] LABS: Hematocrit 35.2 % (37.0-47.0); Hemoglobin 10.9 g/dL (12.0-16.0); Mean Corp Hgb Conc. 31.0 g/dL (33.0-37.0); Mean Corpuscular Volume 99.7 fL (81.0-99.0); Nucleated Red Blood Cells % 0 %; Platelet Count 308 10^3/uL (130-400); Red Cell Dist. Width 13.8 % (11.5-14.5)
[2025-06-01 11:31] LABS: Iron 98 ug/dl (37-170)
[2025-06-01 11:42] LABS: Total Iron Binding Capacity 309 ug/dl (265-497)
[2025-06-01 12:07] LABS: Ferritin 121.0 ng/ml (11.1-264.0)
== END ==
LOC: REG 09:10
PROVIDERS: ATTENDING PHYSICIAN Nurse Practitioner Adult Health; FAMILY PHYSICIAN Internal Medicine
DX: C34.12 Malignant neoplasm of upper lobe, left bronchus or lung (principal); R59.0 Localized enlarged lymph nodes; N64.4 Mastodynia; D50.0 Iron deficiency anemia secondary to blood loss (chronic)
CPT/HCPCS: 36415; 82728; 83540; 83550; 85025

== ENCOUNTER → 2025-06-11 14:47 | Outpatient (REF) | payer MEDICARE, BC, SELFPAY | LOC: WDC 14:47 | PROVIDERS: ATTENDING PHYSICIAN Obstetrics & Gynecology Gynecology; FAMILY PHYSICIAN Internal Medicine | DX: Z85.3 Personal history of malignant neoplasm of breast (principal); Z12.31 Encounter for screening mammogram for malignant neoplasm of breast | CPT/HCPCS: 77063; 77067 ==

== ENCOUNTER → 2025-07-06 10:35 | Outpatient (REF) | payer MEDICARE, BC, SELFPAY | LOC: RAD 10:35 | PROVIDERS: ATTENDING PHYSICIAN Internal Medicine Hematology & Oncology; FAMILY PHYSICIAN Internal Medicine | DX: C34.12 Malignant neoplasm of upper lobe, left bronchus or lung (principal); D59.0 Drug-induced autoimmune hemolytic anemia; N64.4 Mastodynia; D50.0 Iron deficiency anemia secondary to blood loss (chronic) | CPT/HCPCS: 71046 ==

== ENCOUNTER → 2025-07-14 10:54 | Outpatient (REF) | payer MEDICARE, BC, SELFPAY ==
[2025-07-14 11:48] LABS: Hematocrit 34.4 % (37.0-47.0); Hemoglobin 11.1 g/dL (12.0-16.0); Mean Corp Hgb Conc. 32.3 g/dL (33.0-37.0); Mean Corpuscular Volume 96.4 fL (81.0-99.0); Nucleated Red Blood Cells % 0 %; Platelet Count 294 10^3/uL (130-400); Red Cell Dist. Width 13.8 % (11.5-14.5)
[2025-07-14 12:21] LABS: Albumin 4.1 g/dl (3.5-5.0); Blood Urea Nitrogen 31 mg/dl (7-17); Calcium 10.5 mg/dl (8.4-10.2); Carbon Dioxide 26 mmol/L (22-30); Chloride 102 mmol/L (98-107); Glucose 271 mg/dl (70-99); Potassium 5.1 mmol/L (3.5-5.1); Sodium 139 mmol/L (135-145); eGFR > 60.00
[2025-07-14 12:23] LABS: C-Reactive Protein 47.60 mg/L (0.0-10.00)
== END ==
LOC: REG 10:54
PROVIDERS: ATTENDING PHYSICIAN Internal Medicine
DX: E11.65 Type 2 diabetes mellitus with hyperglycemia (principal); I10 Essential (primary) hypertension; E83.52 Hypercalcemia; D64.9 Anemia, unspecified
CPT/HCPCS: 36415; 80069; 85025; 85652; 86140

== ENCOUNTER → 2025-09-10 09:25 | Outpatient (REF) | payer MEDICARE, BC, SELFPAY ==
[2025-09-10 09:55] VITALS: BP 118/68; BP_SYST 74; BMI 19.5
[2025-09-10 10:11] LABS: Glucose - Point of Care 78 mg/dl (70-99)
[2025-09-10 11:25] VITALS: BP 133/70; BP_SYST 78
[2025-09-10 11:30] VITALS: BP 124/66; BP_SYST 87
[2025-09-10 11:35] VITALS: BP 128/71; BP_SYST 86
[2025-09-10 11:40] VITALS: BP 120/60; BP_SYST 79
[2025-09-10 11:45] VITALS: BP 108/64; BP_SYST 80
== END ==
LOC: RADI 09:25
PROVIDERS: ATTENDING PHYSICIAN Internal Medicine Hematology & Oncology; FAMILY PHYSICIAN Internal Medicine
DX: C79.89 Secondary malignant neoplasm of other specified sites (principal); C34.12 Malignant neoplasm of upper lobe, left bronchus or lung
CPT/HCPCS: 20206; 77012; 82962; 88305; 88333; 88341; 88342; 99152